=== PATIENT | female | born 1960 | race Caucasian/White ===

== ENCOUNTER → 2019-08-08 08:58 | Outpatient (CLI) | payer MEDICARE, SELFPAY ==
--- NOTE | ~2019-08-08 | XR_ITS ---
EXAMINATION: XR chest 2V DATE: 08/08/2019 09:20 INDICATION: Chest wall pain. TECHNIQUE: Frontal and lateral views of the chest were obtained. COMPARISON: Chest 2 views 04/18/2016, CT abdomen and pelvis 05/16/2016 FINDINGS: The chest demonstrates clear lungs without pneumonia, pleural effusion, or pneumothorax. Th e heart size is normal. There is a prominent left paracardial fat pad. A skin fold overlies right nanda st. IMPRESSION: 1. No acute cardiopulmonary disease. Reviewed, dictated and finalized at location A. 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
== END ==
LOC: EXPCRAD 09:04
PROVIDERS: Visit Provider Physician Assistant
DX: R05 Cough (principal)
CPT/HCPCS: 71046

== ENCOUNTER 2021-02-05 10:26 | Outpatient (CLI) | payer MEDICARE, SELFPAY ==
--- NOTE | ~2021-02-05 | XR_ITS ---
EXAMINATION: XR chest 2V DATE: 02/05/2021 10:40 INDICATION: Chest tightness and shortness of breath TECHNIQUE: PA and lateral views of the chest are obtained. COMPARISON: 08/08/2019 FINDINGS: The lungs are free of acute opacities. There is no pleural effusion or pneumothorax. The he art size is normal. There is a moderate-sized hiatal hernia. There is moderate thoracic spondylosis. IMPRESSION: 1. No acute cardiopulmonary abnormality. Reviewed, dictated and finalized at location B.
== END 2021-02-05 10:27 | disposition home or self-care (01) ==
LOC: ANHIMG 10:29
PROVIDERS: PCP Physician Assistant; Visit Provider Physician Assistant
DX: R07.89 Other chest pain (principal)
CPT/HCPCS: 71046

== ENCOUNTER 2021-08-27 08:04 | Outpatient (CLI) | payer MEDICARE, SELFPAY ==
--- NOTE | ~2021-08-27 | MM_ITS ---
EXAMINATION: MM screening tori BI w silas HISTORY: Screening TECHNIQUE: Craniocaudal and mediolateral oblique 3-D tomosynthesis images were obtained and synthetic 2-D images were generated. CAD analysis was submitted and interpreted. COMPARISON: Comparison to multiple prior studies sequentially, with oldest reviewed study dated 02/2015. BREAST PARENCHYMAL COMPOSITION: There are scattered areas of fibroglandular density. FINDINGS: There is no evidence of suspicious mass, calcification, or architectural distortion to sugg est malignancy in either breast. There has been no suspicious interval change. IMPRESSION: 1. No mammographic evidence of malignancy. 2. Recommend routine screening mammography in one year. BI-RADS Category 1: Negative Reviewed, dictated and finalized at location A. 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
== END 2021-08-27 08:05 | disposition home or self-care (01) ==
LOC: ANHIMG 08:06
PROVIDERS: PCP Physician Assistant; Visit Provider Physician Assistant
DX: Z12.31 Encounter for screening mammogram for malignant neoplasm of breast (principal)
CPT/HCPCS: 77063; 77067

== ENCOUNTER 2021-11-25 19:28 | Inpatient (IN) | payer MEDICARE, SELFPAY ==
--- NOTE | ~2021-11-25 | CT_ITS ---
EXAMINATION: CT abdomen pelvis w con EXAM DATE: 11/25/2021 23:49 INDICATION: LLQ pain . TECHNIQUE: Spiral CT of the abdomen and pelvis was performed following intravenous injection of 100 m L Omnipaque 350. Axial, coronal and sagittal images of the abdomen and pelvis were reviewed. The do se-length product (DLP) for this examination was 1483.54 mGy-cm. The exposure was tailored according to patient size (auto mA exposure control), and iterative reconstruction (ASIR) was used as addition al dose reduction technique. Comparison is made to prior examination from 05/16/2016. FINDINGS: There is mild to moderate sigmoid predominant colonic diverticulosis. There is inflammation along the sigmoid colon with extraluminal pocket of fluid and gas, most likely early peridiverticula r abscess. Region measures about about 1.5 x 3.3 cm (axial image 139). The liver, spleen, adrenal glands and pancreas are unremarkable. Gallbladder is unremarkable. No bi liary obstruction. Portal and splenic veins are patent. Kidneys enhance symmetrically. There is no hydronephrosis. The uterus is not identified and has likely been surgically resected. The bladder is unremarkable. There is no retroperitoneal or pelvic lymphadenopathy. There is mild scattered a rteriosclerotic disease. The appendix is not positively visualized. There is no pericecal inflammatory change to suggest appe ndicitis. The stomach and small bowel are unremarkable. There is expected amount of colonic stool. No free intraperitoneal gas. The heart is normal in size. There are no pericardial or pleural e ffusions. The lung bases are unremarkable. There are no osteoblastic or osteolytic lesions identifi ed. IMPRESSION: Acute sigmoid diverticulitis with small peridiverticular abscess. Reviewed, dictated and finalized at location A.
--- NOTE | ~2021-11-25 | XR_ITS ---
EXAMINATION: XR chest 2V Exam Date/Time: 11/25/2021 20:00 CDT CLINICAL HISTORY: CHEST PAIN, N/V/D, HX CHF, HX HTN Comparison: 02/05/2021. RESULT: Lines, tubes, and devices: None. Lungs and pleura: Clear. Cardiomediastinal silhouette: Stable cardiomediastinal silhouette. Other: No acute osseous or upper abdominal finding. IMPRESSION: No acute cardiopulmonary process Reviewed, dictated and finalized at location K.
--- NOTE | 2021-11-25 19:31 | ECG_ITS ---
Measurements Intervals [place] Rate: 98 P: -18 UT: 148 QRS: -72 QRSD: 97 T: 55 QT: 368 QTc: 471 Interpretive Statements SINUS RHYTHM LEFT ANTERIOR FASCICULAR BLOCK [QRS AXIS <= -45, QR IN I, RS IN II] NONSPECIFIC T-WAVE ABNORMALITY NO PREVIOUS ECG AVAILABLE FOR COMPARISON Electronically Signed On 11-26-2021 11:45:01 CDT by Adi Welsh M.D.
[2021-11-25 19:33] VITALS: BP 141/105; PULSE 108; RESP 20; TEMP 36.9; O2SAT 98
[2021-11-25 22:27] VITALS: BP 155/106; PULSE 98; RESP 23; O2SAT 97
[2021-11-25 22:59] LABS: Basophils Absolute Auto 0.1 K/mm3 (0.0-0.1); Basophils Percent Auto 0.4 % (0.2-1.2); Eosinophils Absolute Auto 0.2 K/mm3 (0-0.3); Eosinophils Percent Auto 1.9 % (0-4.4); Hematocrit 42.5 % (37.0-47.0); Immature Granulocyte Absolute 0.05 K/mm3 (0.00-0.031); Immature Granulocyte Percent A 0.4 % (0-0.5); Lymphocytes Absolute Auto 2.25 K/mm3 (0.9-3.2); Lymphocytes Percent Auto 19.1 % (18.3-44.2); Mean Corpuscular HGB Conc 30.6 g/dl (32-36); Mean Corpuscular Hemoglobin 26.8 pg (26-34); Mean Corpuscular Volume 87.6 fl (80-100); Mean Platelet Volume 9.3 fl (7.4-10.4); Monocytes Absolute Auto 0.8 K/mm3 (0.1-0.6); Monocytes Percent Auto 7.1 % (2.6-8.5); Neutrophils Absolute Auto 8.3 K/mm3 (1.3-6.7); Neutrophils Percent Auto 71.1 % (45.5-73.1); Platelet Count Result 548 k/mm3 (150-375); Red Blood Count 4.85 M/mm3 (4.2-5.4); Red Cell Distribution Width 15.9 % (11.5-14.5); White Blood Count 11.8 K/mm3 (4.5-10.0)
[2021-11-25 23:07] VITALS: PULSE 93
[2021-11-25 23:08] LABS: INR 1.2; Prothrombin Time 14.7 Seconds (11.1-14.7)
[2021-11-25 23:10] LABS: Partial Thromboplastin Time 36.7 SECONDS (22.3-36.8)
[2021-11-25 23:11] LABS: Alanine Aminotransferase 29 U/L (4-35); Albumin Level 4.8 g/dL (3.5-5.1); Alkaline Phosphatase 58 U/L (38-126); Anion Gap 12 mmol/L (8-16); Aspartate Amino Transferase 74 U/L (14-36); Bilirubin,Total 0.7 mg/dL (0.2-1.3); Blood Urea Nitrogen 25 mg/dL (7-17); Calcium 9.3 mg/dL (8.4-10.2); Carbon Dioxide 23 mmol/L (22-30); Chloride 103 mmol/L (98-107); Estimated CRCL calculation 72 ml/min; Estimated Glomerular Filt Rate > 60; Glucose 119 mg/dL (65-110); Lipase 90 U/L (23-300); Potassium 4.6 mmol/L (3.4-5.0); Sodium 138 mmol/L (137-145)
[2021-11-25 23:22] LABS: Troponin I < 0.012 ng/mL (0.000-0.034)
--- NOTE | 2021-11-25 23:32 | ED.GENADULT ---
HPI - General Adult General Chief complaint: Unspecified Stated complaint: CP, back pain Time Seen by Provider: 11/25/21 22:26 Source: patient, family and RN notes reviewed Limitations: no limitations History of Present Illness HPI narrative: 61-year-old female presents to the emergency department department for evaluation of 12 hours of nausea vomiting diarrhea with epigastric and abdominal pain. Patient states her symptoms began at approximately 7:30 in the morning and lasted until just prior to arrival. Patient states that she had a significant improvement of her pain compared to earlier in the day but that she is still having some left lower quadrant pain and tenderness. Patient does have a prior history of cholecystectomy, hysterectomy and prior episodes of diverticulitis. No prior history of PR. Patient is not diabetic. Patient has a BMI of 51.6. does have history of high cholesterol hypertension. Related Data Home Medications Medication Instructions Recorded Confirmed bupropion HCl [Wellbutrin XL] 150 mg PO QAM 11/26/21 11/26/21 buspirone 10 mg PO TID 11/26/21 11/26/21 carvedilol 3.125 mg PO BID 11/26/21 11/26/21 duloxetine 60 mg PO DAILY 11/26/21 11/26/21 fenofibrate micronized 134 mg PO DAILY 11/26/21 11/26/21 furosemide 40 mg PO DAILY 11/26/21 11/26/21 lisinopril 10 mg PO DAILY 11/26/21 11/26/21 modafinil 100 mg PO DAILY 11/26/21 11/26/21 rosuvastatin 10 mg PO DAILY 11/26/21 11/26/21 Allergies Allergy/AdvReac Type Severity Reaction Status Date / Time niacin Allergy Unknown Swelling Verified 11/26/21 01:36 of Lip/Tongue/Throat niacinamide Allergy Unknown Swelling Verified 11/26/21 01:36 of Lip/Tongue/Throat Review of Systems Review of Systems: CONSTITUTIONAL: Denies fever, chills, or sweats. EYES: Denies visual changes, redness, or discharge. ENT: Denies rhinorrhea, congestion, sore throat, or otalgia. CARDIOVASCULAR: Denies chest pain, palpitations, or edema. RESPIRATORY: Denies cough or dyspnea. GASTROINTESTINAL: Abdominal pain with associated nausea vomiting and diarrhea GENITOURINARY: Denies dysuria or hematuria. SKIN: Denies rash or itching. MUSCULOSKELETAL: Denies back pain, joint pain, or myalgia. NEUROLOGIC: Denies headache, numbness, or weakness. [facility] Family History Family History (Updated 04/06/17 @ 16:10 by DOCTOR UNKNOWN) Other Depression Family history of arthritis Family history of lung cancer Family history of thyroid disease Social History Social History Smoking status: Never smoker Alcohol intake: current Substance use: never Spiritual care concerns: No Exam Narrative: APPEARANCE: Well appearing, no pain, no distress, well-nourished. HEAD: normocephalic, atraumatic. EYES: PERRLA/EOMI, conjunctivae clear. NECK: Supple. No adenopathy, no masses. RESPIRATORY: Airway patent, respirations nonlabored. Clear to auscultation bilaterally, no rales, rhonchi, wheezing. CARDIOVASCULAR: Regular rate and rhythm without murmurs rubs or gallops. ABDOMINAL: Left lower quadrant tenderness to palpation MUSCULOSKELETAL: Moves all extremities. Strength/ROM intact, No edema, No calf tenderness. NEURO: Alert. Cranial nerves II through XII intact. Grossly intact SKIN: Warm, dry. Normal Color Course Course Emergency Course: CT abdomen pelvis showed a diverticular abscess 3 x 1.5 cm with a small amount of free air. Case was discussed with Dr. Scruggs and he will see the patient as consult. Patient was started on Zosyn. Blood cultures pending. He recommended the patient be n.p.o. except for ice chips. Vital Signs Vital signs: Vital Signs Temperature 98.5 F 11/25/21 19:33 Pulse Rate 108 H 11/25/21 19:33 Respiratory Rate 20 11/25/21 19:33 Blood Pressure 141/105 H 11/25/21 19:33 Pulse Oximetry 98 11/25/21 19:33 Temperature 98.7 F 11/26/21 05:09 Pulse Rate 98 11/26/21 05:09 Respiratory Rate 16 11/26/21 05:09 Blood Pres
[2021-11-26] VITALS (9 sets, daily range): BP systolic 125–177; BP diastolic 70–106; PULSE 76–98; RESP 16–26; TEMP 36.3–37.1; O2SAT 96–100; BMI 53.0
--- NOTE | 2021-11-26 00:43 | PC.NURSE ---
NAUN received from Dr. Sun that troponin serial tests are not needed.
--- NOTE | 2021-11-26 02:58 | ADMGEN ---
This patient, Krupa Perez, was admitted to [facility] Surg Room 324-01. Patient/family oriented to hospital policies and general routines including ID bracelet, bed and alarms, visiting hours, pain management, procedures, bathroom and other care routines, personal items, smoking policy, room service/diet, and visiting hours. Information on how to activate the Rapid Response Team has been discussed. Patient/Family are encouraged to report perceived risks to care and to ask questions if they do not understand what they are told or what they should do.
[2021-11-26] MEDS: SODIUM CHLORIDE 0.9% IV 1,000 ML 75 ML IV CONT ×2 (03:19→15:08)
[2021-11-26 09:35] LABS: Hematocrit 38.5 % (37.0-47.0); Mean Corpuscular HGB Conc 31.2 g/dl (32-36); Mean Corpuscular Hemoglobin 27.3 pg (26-34); Mean Corpuscular Volume 87.5 fl (80-100); Mean Platelet Volume 9.2 fl (7.4-10.4); Platelet Count Result 486 k/mm3 (150-375); Red Cell Distribution Width 15.6 % (11.5-14.5); White Blood Count 9.8 K/mm3 (4.5-10.0)
[2021-11-26 09:48] LABS: Alanine Aminotransferase 24 U/L (4-35); Albumin Level 3.8 g/dL (3.5-5.1); Alkaline Phosphatase 61 U/L (38-126); Anion Gap 7 mmol/L (8-16); Aspartate Amino Transferase 29 U/L (14-36); Bilirubin,Total 0.4 mg/dL (0.2-1.3); Blood Urea Nitrogen 18 mg/dL (7-17); Calcium 8.6 mg/dL (8.4-10.2); Carbon Dioxide 23 mmol/L (22-30); Chloride 106 mmol/L (98-107); Estimated CRCL calculation 73 ml/min; Estimated Glomerular Filt Rate > 60; Glucose 116 mg/dL (65-110); Magnesium 2.1 mg/dL (1.6-2.3); Potassium 3.8 mmol/L (3.4-5.0); Sodium 136 mmol/L (137-145)
--- NOTE | 2021-11-26 11:45 | PM.CNGS ---
Assessment and Plan Assessment and plan (1) Diverticulitis of intestine with perforation and abscess: Qualifiers: Diverticulitis bleeding: unspecified bleeding status Diverticulitis site: large intestine Qualified Code(s): K57.20 - Diverticulitis of large intestine with perforation and abscess without bleeding Code(s): K57.80 - Diverticulitis of intestine, part unspecified, with perforation and abscess without bleeding Status: Acute Assessment and Plan: CT scan reviewed and discussed in detail. There is evidence of acute sigmoid diverticulitis with a small peridiverticular abscess. Her white blood [place] was [address] and she is afebrile. She is already showing signs of clinical improvement. She has some tenderness on exam primarily in the left lower quadrant, but no peritoneal signs. We would recommend to continue broad-spectrum IV antibiotics, IV fluids, analgesics, and bowel rest for now. We will allow clear liquids later today if her nausea improves. I discussed with the patient that typically this will respond well to antibiotic treatment, but in the case of a larger abscess she could potentially require percutaneous drainage. We will repeat labs tomorrow and continue to monitor with serial abdominal exams. I also discussed with the patient that it would be recommended for her to have a colonoscopy about 4-6 weeks after this acute episode if she is doing well. Thank you for allowing us to see the patient in consultation and we will continue to follow along with you. (2) Hypertension: Code(s): I10 - Essential (primary) hypertension Status: Acute (3) Morbid obesity with BMI of 50.0-59.9, adult: Code(s): E66.01 - Morbid (severe) obesity due to excess calories; Z68.43 - Body mass index [BMI] 50.0-59.9, adult Status: Acute Assessment and Plan: Encouraged diet modification and lifestyle changes to promote weight loss. (4) Candidal dermatitis: Code(s): B37.2 - Candidiasis of skin and nail Status: Acute Assessment and Plan: Superficial maceration noted just below her pannus in the skin fold. The patient was unaware of this and denies any discomfort or itching. Will order antifungal powder and discussed the importance of trying to keep this area clean and dry. Could apply pillow cases to the skin fold to help wick moisture. Additional Plan I have discussed the patient's case and plan of care with Dr. Scruggs. History of Present Illness Consult details Consult date: 11/26/21 Reason for consult: other (Sigmoid diverticulitis with abscess) Requesting physician: Gordo Sun MD Narrative: This is a 61-year-old morbidly obese female with a history of hypertension and hyperlipidemia, who presented to the emergency department with complaints of abdominal pain, vomiting, and diarrhea. She reports waking up feeling in her normal state of health yesterday morning. Just before lunch, she began to notice some mild lower abdominal pain. Shortly after noticing the pain, she developed nausea, vomiting, and diarrhea. Around noon, her abdominal pain began to worsen. She reports the abdominal pain was coming in waves. She attempted to have crackers and tea, but this seemed to worsen her symptoms. She denies fever or chills. Due to the unrelenting pain, she presented to the ER for evaluation. CT scan of the abdomen and pelvis showed acute sigmoid diverticulitis with a small peridiverticular abscess measuring 1.5 x 3.3 cm. Chest x-ray showed no acute cardiopulmonary disease. Labs showed a white blood cell count of 11,800. The patient was admitted to the hospitalist service. Our service was consulted for the sigmoid diverticulitis with abscess. The patient is now seen on the medical floor. She is currently NPO. She reports her abdominal pain has completely resolved. She reports feeling nauseous, but has not vomited since yesterday at home. With further questioning, isaac
[2021-11-26] MEDS: ONDANSETRON INJ 4 MG/2 ML VIAL IV PUSH (11:53)
--- NOTE | 2021-11-26 14:28 | PM.IMHP ---
H&P: HPI History of Present Illness Date/Time: 11/26/21 14:28 ED-HPI narrative: 61-year-old female presents to the emergency department department for evaluation of 12 hours of nausea vomiting diarrhea with epigastric and abdominal pain. Patient states her symptoms began at approximately 7:30 in the morning and lasted until just prior to arrival. Patient states that she had a significant improvement of her pain compared to earlier in the day but that she is still having some left lower quadrant pain and tenderness. Interval Hisotry: 61-year-old female the left lower quadrant pain CT scan abdomen showed acute sigmoid diverticulitis with small peridiverticular abscess. patient started on Zosyn and bowel rest, seen by surgery service recommending conservative management and agree with current plan will continue to monitor if there is any change patient condition and abdominal pain further recommendation to follow. patient is admitted as inpatient will stay in hospital 2 midnights Chief Complaint: abdominal pain Review of Systems Review of Systems: All systems reviewed & are unremarkable except as noted in HPI and below PMFSH Past Medical History Medical History History of diverticulitis of colon History of meningitis Hyperlipidemia Hypertension Morbid obesity with BMI of 50.0-59.9, adult Surgical History Surgical History History of laparoscopic appendectomy History of laparoscopic cholecystectomy History of laparoscopy Reportedly had laparoscopic surgery for an ectopic and 6 months later had an additional surgery for a salpingo-oophorectomy History of total abdominal hysterectomy total abdominal hysterectomy with salpingo-oophorectomy (of the other unilateral side remaining) 25 years ago Family History Family History Other Depression Family history of arthritis Family history of lung cancer Family history of thyroid disease Social History Social History Smoking status: Never smoker Alcohol intake: never Substance use: never Living arrangements: alone Additional occupation/education comments: 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 She states she was put on disability after having meningitis a few years ago. Gender identity (if verbalized by the patient): Female Spiritual care concerns: No Meds Home Medications and Allergies Home Medications Medication Instructions Recorded Confirmed Type bupropion HCl [Wellbutrin XL] 150 mg PO QAM 11/26/21 11/26/21 History buspirone 10 mg PO TID 11/26/21 11/26/21 History carvedilol 3.125 mg PO BID 11/26/21 11/26/21 History duloxetine 60 mg PO DAILY 11/26/21 11/26/21 History fenofibrate micronized 134 mg PO DAILY 11/26/21 11/26/21 History furosemide 40 mg PO DAILY 11/26/21 11/26/21 History lisinopril 10 mg PO DAILY 11/26/21 11/26/21 History modafinil 100 mg PO DAILY 11/26/21 11/26/21 History rosuvastatin 10 mg PO DAILY 11/26/21 11/26/21 History Allergies Allergy/AdvReac Type Severity Reaction Status Date / Time niacin Allergy Unknown Swelling Verified 11/26/21 01:36 of Lip/Tongue/Throat niacinamide Allergy Unknown Swelling Verified 11/26/21 01:36 of Lip/Tongue/Throat Vital Signs Vital Signs - 24 hr 11/25/21 19:33 11/25/21 22:27 11/25/21 23:07 Temperature 98.5 F Pulse Rate 108 H 98 93 Respiratory Rate 20 23 H Blood Pressure 141/105 H 155/106 H Pulse Oximetry 98 97 11/26/21 00:36 11/26/21 01:34 11/26/21 02:20 Temperature Pulse Rate 88 92 95 Respiratory Rate 19 25 H 20 Blood Pressure 141/75 H 177/106 H 136/70 Pulse Oximetry 96 96 96 11/26/21 02:44 11/26/21 02:55 11/26/21 05:09 Temperature 97.7 F 98.7 F Pulse Rate 89 97 98 Respiratory Rate 26 H 20 16 Blood P
[2021-11-26] MEDS: HEPARIN SODIUM 5,000 UNITS/ML VIAL 5000 UNITS SUB-Q ×2 (15:08→20:35)
[2021-11-26] MEDS: busPIRone HCL 10 MG TABLET PO (16:58)
[2021-11-26] MEDS: carvediloL 3.125 MG TABLET PO (20:34)
[2021-11-26] MEDS: TOLNAFTATE 1% POWDER 45 GM BTL 1 APPLIC TOPICAL (20:34)
[2021-11-27 05:46] LABS: Hemoglobin 11.3 g/dL (12.0-15.0); Mean Corpuscular HGB Conc 30.5 g/dl (32-36); Mean Corpuscular Hemoglobin 27.4 pg (26-34); Mean Corpuscular Volume 89.8 fl (80-100); Mean Platelet Volume 9.6 fl (7.4-10.4); Platelet Count Result 502 k/mm3 (150-375); Red Blood Count 4.12 M/mm3 (4.2-5.4); Red Cell Distribution Width 15.9 % (11.5-14.5); White Blood Count 8.8 K/mm3 (4.5-10.0)
[2021-11-27] MEDS: HEPARIN SODIUM 5,000 UNITS/ML VIAL 5000 UNITS SUB-Q ×3 (05:46→22:16)
[2021-11-27 05:47] VITALS: BP 109/66; PULSE 84; RESP 16; TEMP 36.7; O2SAT 95
[2021-11-27 05:58] LABS: Alanine Aminotransferase 21 U/L (4-35); Albumin Level 3.8 g/dL (3.5-5.1); Alkaline Phosphatase 54 U/L (38-126); Anion Gap 9 mmol/L (8-16); Aspartate Amino Transferase 27 U/L (14-36); Bilirubin,Total 0.4 mg/dL (0.2-1.3); Blood Urea Nitrogen 14 mg/dL (7-17); Calcium 8.5 mg/dL (8.4-10.2); Carbon Dioxide 22 mmol/L (22-30); Chloride 108 mmol/L (98-107); Estimated CRCL calculation 73 ml/min; Estimated Glomerular Filt Rate > 60; Glucose 125 mg/dL (65-110); Potassium 3.7 mmol/L (3.4-5.0); Sodium 139 mmol/L (137-145)
[2021-11-27 06:00] LABS: Magnesium 2.1 mg/dL (1.6-2.3)
[2021-11-27] MEDS: SODIUM CHLORIDE 0.9% IV 1,000 ML 75 ML IV CONT (08:05)
[2021-11-27] MEDS: modafiniL (*CRX) 200 MG TABLET 100 MG PO (08:12)
[2021-11-27] MEDS: FENOFIBRATE NANOCRYSTALLIZED 145 MG TABLET PO (08:14)
[2021-11-27] MEDS: FUROSEMIDE 40 MG TABLET PO (08:14)
[2021-11-27] MEDS: lisinopriL 10 MG TABLET PO (08:14)
[2021-11-27] MEDS: ROSUVASTATIN 10 MG TABLET PO (08:14)
[2021-11-27] MEDS: DULoxetine HCL 60 MG CAPSULE.DR PO (08:16)
[2021-11-27] MEDS: busPIRone HCL 10 MG TABLET PO ×3 (08:17→17:05)
[2021-11-27 08:18] VITALS: PULSE 92
[2021-11-27] MEDS: buPROPion HCL XL (24 HR) 150 MG TABCR PO (08:18)
[2021-11-27] MEDS: carvediloL 3.125 MG TABLET PO ×2 (08:18→20:04)
[2021-11-27] MEDS: TOLNAFTATE 1% POWDER 45 GM BTL 1 APPLIC TOPICAL ×2 (08:19→20:04)
[2021-11-27] MEDS: ACETAMINOPHEN 500 MG TABLET 1000 MG PO (08:59)
[2021-11-27 09:05] VITALS: O2SAT 94
[2021-11-27 10:15] LABS: Glucose Point of Care 144 mg/dl (65-105)
--- NOTE | 2021-11-27 12:46 | PM.PNGS ---
Progress Note: A&P Assessment and Plan (1) Diverticulitis of intestine with perforation and abscess: Qualifiers: Diverticulitis bleeding: unspecified bleeding status Diverticulitis site: large intestine Qualified Code(s): K57.20 - Diverticulitis of large intestine with perforation and abscess without bleeding Code(s): K57.80 - Diverticulitis of intestine, part unspecified, with perforation and abscess without bleeding Status: Acute Assessment and Plan: Continues to improve. WBC Normal and she is afebrile. No abdominal pain today and her tenderness has improved. Will advance to full liquids and stop IV fluids if she is tolerating this well. Will also plan to consult a dietitian to educate her on low fiber vs high fiber diet since it has been about 6 years since her last episode of diverticulitis. Continue IV antibiotics. Encouraged increasing activity and walking the halls. Will repeat labs tomorrow morning. (2) Hypertension: Code(s): I10 - Essential (primary) hypertension Status: Acute (3) Morbid obesity with BMI of 50.0-59.9, adult: Code(s): E66.01 - Morbid (severe) obesity due to excess calories; Z68.43 - Body mass index [BMI] 50.0-59.9, adult Status: Acute Assessment and Plan: Encouraged diet modification and lifestyle changes to promote weight loss. (4) Candidal dermatitis: Code(s): B37.2 - Candidiasis of skin and nail Status: Acute Assessment and Plan: Continue antifungal powder and applying pillow cases to the skin fold to help wick moisture. Additional Plan I have discussed the patient's case and plan of care with Dr. Scruggs. To note, her platelets are still 500K this morning. The thrombocytosis could be related to the infection, but need to continue to monitor. Currently on subQ heparin for VTE prophylaxis. Subjective Subjective Date/Time Seen: 11/27/21 12:46 Patient reports: no new complaints, feels better, pain is less, tolerating liquids well and afebrile Interval history: Patient seen and examined. She reports feeling much better today. Denies any abdominal pain, nausea, vomiting or bloating this morning. Reports two liquid BMs this morning and passing gas. Review of Systems Review of Systems: All systems reviewed & are unremarkable except as noted in HPI and below Exam Const: General: comfortable, no acute distress and awake GI: Inspection: non-distended, Pannus present and obesity GI Palp: Yes Soft to palpation, Yes Tenderness to palpation present (GI) (improved tenderness in LLQ), No Guarding due to palpation present (GI) and No Rebound tenderness present Auscultation: normal bowel sounds Skin: Other: area of superficial maceration just below the pannus in the suprapubic fold Neuro: General: moves all extremities and no focal motor deficits Extrem: General: normal to inspection Psych: Insight: Good insight present (Psych) Judgement: Good judgement present (Psych) Objective Data Vital Signs Vital Signs: Vital Signs - 24 hr 11/26/21 14:00 11/26/21 20:34 11/26/21 21:33 Temperature 97.4 F L 97.7 F Pulse Rate 91 76 87 Respiratory Rate 16 20 Blood Pressure 140/74 125/84 Pulse Oximetry 98 97 11/27/21 05:47 11/27/21 08:18 Temperature 98.0 F Pulse Rate 84 92 Respiratory Rate 16 Blood Pressure 109/66 Pulse Oximetry 95 Intake/Output Intake/Output: Intake & Output 11/24/21 11/25/21 11/26/21 11/27/21 23:59 23:59 23:59 23:59 Intake Total 1658 1760 Output Total 100 1650 Balance 1558 110 Meds/Results Medications: Active Medications Generic Name Dose Route Start Last Admin Trade Name Freq PRN Reason Stop Dose Admin Acetaminophen 1,000 mg 11/27/21 08:41 11/27/21 08:59 Acetaminophen 500 Mg Tablet PO 1,000 mg Q6H PRN Administration Mild Pain (1-3) or Fever Bupropion HCl 150 mg 11/27/21 09:00 11/27/21 08:18 Bupropion Hcl Xl (24 Hr) 150 Mg Tabcr PO 150 mg
--- NOTE | 2021-11-27 13:36 | PCDIET ---
Received consult for low fiber diet. See nutrition teaching intervention Thank you for the referral
[2021-11-27 14:00] VITALS: BP 120/75; PULSE 92; RESP 18; TEMP 36.2; O2SAT 97
--- NOTE | 2021-11-27 17:38 | PC.NURSE ---
Patient tolerated full liquid diet accompanied by small bowel movement shortly after. Stool is still loose but more formed than this morning. Discontinued the fluids and saline locked the IV per physician to nurse communication.
--- NOTE | 2021-11-27 17:47 | PM.IMPN ---
Progress Note: A&P Assessment and Plan (1) Diverticulitis of intestine with perforation and abscess: Qualifiers: Diverticulitis bleeding: unspecified bleeding status Diverticulitis site: large intestine Qualified Code(s): K57.20 - Diverticulitis of large intestine with perforation and abscess without bleeding Code(s): K57.80 - Diverticulitis of intestine, part unspecified, with perforation and abscess without bleeding Status: Acute Assessment and Plan: Acute sigmoid diverticulitis with small anisa diverticular abscess On Zosyn and bowel rest improving with conservative management advance diet per General surgery (2) Hypertension: Code(s): I10 - Essential (primary) hypertension Status: Acute Assessment and Plan: Home medication (3) Morbid obesity with BMI of 50.0-59.9, adult: Code(s): E66.01 - Morbid (severe) obesity due to excess calories; Z68.43 - Body mass index [BMI] 50.0-59.9, adult Status: Acute Assessment and Plan: Associate Professor Of Library Science consult Subjective Date/time seen: 11/27/21 17:47 Interval history: HPI: 61-year-old female presents to the emergency department department for evaluation of 12 hours of nausea vomiting diarrhea with epigastric and abdominal pain. Patient states her symptoms began at approximately 7:30 in the morning and lasted until just prior to arrival. Patient states that she had a significant improvement of her pain compared to earlier in the day but that she is still having some left lower quadrant pain and tenderness. Interval Hisotry: 61-year-old female the left lower quadrant pain CT scan abdomen showed acute sigmoid diverticulitis with small peridiverticular abscess. patient started on Zosyn and bowel rest, seen by surgery service recommending conservative management and agree with current plan will continue to monitor if there is any change patient condition and abdominal pain further recommendation to follow. 11/27/2021 abdominal pain is much better. Tolerated her liquid diet earlier today. Abdomen on the left lower quadrant is sore but has improved significantly. Review of Systems Review of Systems: All systems reviewed & are unremarkable except as noted in HPI and below Exam Narrative: morbidly obese Patient is comfortable, NAD HEENT: eyes are clear and none icteric LUNGS: normal respiratory effort clear to auscultation laterally ABD: Soft, distended left lower quadrant tender to touch mild Lower extremities: no edema cyanosis clubbing SKIN: nonjaundiced Neuro: grossly intact. Alert and oriented x3 Objective Data Vital Signs Vital Signs: Vital Signs - 24 hr 11/26/21 20:34 11/26/21 21:33 11/27/21 05:47 Temperature 97.7 F 98.0 F Pulse Rate 76 87 84 Respiratory Rate 20 16 Blood Pressure 125/84 109/66 Pulse Oximetry 97 95 11/27/21 08:18 11/27/21 09:05 11/27/21 14:00 Temperature 97.1 F L Pulse Rate 92 92 Respiratory Rate 18 Blood Pressure 120/75 Pulse Oximetry 94 97 Intake/Output Intake/Output: Intake & Output 11/24/21 11/25/21 11/26/21 11/27/21 23:59 23:59 23:59 23:59 Intake Total 1658 2650 Output Total 100 1650 Balance 1558 1000 Meds/Results Medications: Active Medications Generic Name Dose Route Start Last Admin Trade Name Freq PRN Reason Stop Dose Admin Acetaminophen 1,000 mg 11/27/21 08:41 11/27/21 08:59 Acetaminophen 500 Mg Tablet PO 1,000 mg Q6H PRN Administration Mild Pain (1-3) or Fever Bupropion HCl 150 mg 11/27/21 09:00 11/27/21 08:18 Bupropion Hcl Xl (24 Hr) 150 Mg Tabcr PO 150 mg QAM YANET Administration Buspirone HCl 10 mg 11/26/21 17:00 11/27/21 17:05 Buspirone Hcl 10 Mg Tablet PO 10 mg TID YANET Administration Carvedilol 3.125 mg 11/26/21 21:00 11/27/21 08:18 Carvedilol 3.125 Mg Tablet PO 3.125 mg Q12HR YANET Administration Duloxetine HCl 60 mg 11/27/21 09:00 11/27/21 08:16 Duloxetine Hcl 60 Mg Capsu
[2021-11-27 21:34] VITALS: BP 108/61; PULSE 81; RESP 18; TEMP 36.3; O2SAT 99
[2021-11-28 06:00] VITALS: BP 126/87; PULSE 101; RESP 20; TEMP 36.1; O2SAT 97
[2021-11-28] MEDS: HEPARIN SODIUM 5,000 UNITS/ML VIAL 5000 UNITS SUB-Q ×2 (06:03→13:00)
[2021-11-28 06:54] LABS: Hematocrit 38.8 % (37.0-47.0); Mean Corpuscular HGB Conc 30.9 g/dl (32-36); Mean Corpuscular Hemoglobin 26.8 pg (26-34); Mean Corpuscular Volume 86.6 fl (80-100); Mean Platelet Volume 9.3 fl (7.4-10.4); Platelet Count Result 507 k/mm3 (150-375); Red Blood Count 4.48 M/mm3 (4.2-5.4); Red Cell Distribution Width 15.5 % (11.5-14.5); White Blood Count 9.1 K/mm3 (4.5-10.0)
[2021-11-28 07:14] LABS: Alanine Aminotransferase 20 U/L (4-35); Albumin Level 3.8 g/dL (3.5-5.1); Alkaline Phosphatase 61 U/L (38-126); Anion Gap 9 mmol/L (8-16); Aspartate Amino Transferase 25 U/L (14-36); Bilirubin,Total 0.4 mg/dL (0.2-1.3); Blood Urea Nitrogen 9 mg/dL (7-17); Calcium 8.8 mg/dL (8.4-10.2); Carbon Dioxide 23 mmol/L (22-30); Chloride 108 mmol/L (98-107); Estimated CRCL calculation 82 ml/min; Estimated Glomerular Filt Rate > 60; Glucose 110 mg/dL (65-110); Potassium 3.5 mmol/L (3.4-5.0); Sodium 140 mmol/L (137-145)
[2021-11-28] MEDS: ROSUVASTATIN 10 MG TABLET PO (08:28)
[2021-11-28] MEDS: busPIRone HCL 10 MG TABLET PO ×2 (08:28→12:57)
[2021-11-28] MEDS: modafiniL (*CRX) 200 MG TABLET 100 MG PO (08:28)
[2021-11-28 08:29] VITALS: PULSE 90
[2021-11-28] MEDS: lisinopriL 10 MG TABLET PO (08:29)
[2021-11-28] MEDS: FENOFIBRATE NANOCRYSTALLIZED 145 MG TABLET PO (08:29)
[2021-11-28] MEDS: carvediloL 3.125 MG TABLET PO (08:29)
[2021-11-28] MEDS: DULoxetine HCL 60 MG CAPSULE.DR PO (08:29)
[2021-11-28] MEDS: TOLNAFTATE 1% POWDER 45 GM BTL 1 APPLIC TOPICAL (08:29)
[2021-11-28] MEDS: FUROSEMIDE 40 MG TABLET PO (08:29)
[2021-11-28] MEDS: buPROPion HCL XL (24 HR) 150 MG TABCR PO (08:29)
--- NOTE | 2021-11-28 10:28 | PM.PNGS ---
Progress Note: A&P Assessment and Plan (1) Diverticulitis of intestine with perforation and abscess: Qualifiers: Diverticulitis bleeding: unspecified bleeding status Diverticulitis site: large intestine Qualified Code(s): K57.20 - Diverticulitis of large intestine with perforation and abscess without bleeding Code(s): K57.80 - Diverticulitis of intestine, part unspecified, with perforation and abscess without bleeding Status: Acute Assessment and Plan: Continues to improve. WBC Normal and she is afebrile. No abdominal pain today and her tenderness has abated. Dietitian has educated her on low fiber vs high fiber diet since it has been about 6 years since her last episode of diverticulitis. (To stay on a low-fiber diet while taking antibiotics at home prior to her follow-up visit and follow-up CT scan). Change to oral antibiotics & discharge today. Encouraged increasing activity and walking the halls and increasing exercise and walking at home. Okay from a surgical point of view for discharge today. Plan will be for patient to have a follow-up CT scan in 1 week. This will be to be sure that the small diverticular abscess has resolved rather than large during antibiotic treatment. I will see her in follow-up in the office several days after that is done. She will need to have oral antibiotics for approximately 7 more days to give her a full 10 days of treatment. . (2) Hypertension: Code(s): I10 - Essential (primary) hypertension Status: Acute (3) Morbid obesity with BMI of 50.0-59.9, adult: Code(s): E66.01 - Morbid (severe) obesity due to excess calories; Z68.43 - Body mass index [BMI] 50.0-59.9, adult Status: Acute Assessment and Plan: Encouraged diet modification and lifestyle changes to promote weight loss. patient told me today she is coordinate with her son and they were both on weight watchers. I encouraged this and encouraged her cyst a on the low-fiber diet until she sees me in the office. (4) Candidal dermatitis: Code(s): B37.2 - Candidiasis of skin and nail Status: Acute Assessment and Plan: Continue antifungal powder and applying pillow cases to the skin fold to help wick moisture. Additional Plan Will leave antibiotic choices up to Dr. Bolaños at the since there is a severe warning regarding use of ciprofloxacin in association with Cymbalta. I put in script for the metronidazole for which there was no warning. My preference would be that the patient would have dual antibiotic coverage with metronidazole + 1 of any of the following: Levaquin, ciprofloxacin, or Augmentin. Subjective Subjective Date/Time Seen: 11/28/21 10:28 Patient reports: no new complaints, feels better and bowel movement Interval history: Patient lying in bed & denying abdominal pain or nausea. States she had had 2 liquid stools today already. Review of Systems Review of Systems: All systems reviewed & are unremarkable except as noted in HPI and below Constitutional: Constitutional: Reports as per HPI, Denies chills, Denies fatigue and Denies fever(s) Eyes: Eyes: Reports no additional eye complaints and Denies change in vision ENT: Reports system reviewed and no additional complaints, except as documented Cardiovascular: Cardiovascular: Reports no additional cardiovascular complaints, Denies chest pain, Denies leg edema and Denies dyspnea Respiratory: Respiratory: Reports no additional respiratory complaints, Denies cough and Denies dyspnea Gastrointestinal: Gastrointestinal: Reports as per HPI, Reports no additional gastrointestinal complaints, Reports abdominal pain, Denies melena, Denies bloating, Denies hematochezia, Denies coffee ground emesis, Reports constipation (over past few weeks), Reports diarrhea (yesterday), Reports nausea, Reports vomiting and Denies hematemesis Genitourinary: Genitourinary: Reports no additional female genitourinary complaint
--- NOTE | 2021-11-28 11:46 | PM.DS ---
DS: Admitting Diagnosis Discharge Date 11/28/21 Admitting Diagnosis Abdominal pain DS: Discharge Diagnosis Discharge Diagnosis (1) Diverticulitis of intestine with perforation and abscess: Qualifiers: Diverticulitis bleeding: unspecified bleeding status Diverticulitis site: large intestine Qualified Code(s): K57.20 - Diverticulitis of large intestine with perforation and abscess without bleeding Code(s): K57.80 - Diverticulitis of intestine, part unspecified, with perforation and abscess without bleeding Status: Acute Assessment and Plan: Acute sigmoid diverticulitis with small anisa diverticular abscess On Zosyn and bowel rest improving with conservative management advance diet per General surgery Abdominal pain improved significantly with conservative management. She will follow-up with General surgery as an outpatient basis Will have repeat CT planned per General surgery in a week (2) Hypertension: Code(s): I10 - Essential (primary) hypertension Status: Acute Assessment and Plan: Home medication (3) Morbid obesity with BMI of 50.0-59.9, adult: Code(s): E66.01 - Morbid (severe) obesity due to excess calories; Z68.43 - Body mass index [BMI] 50.0-59.9, adult Status: Acute Assessment and Plan: Fit Model consult for low-fiber diet DS: Summary Hospital Course Hospital Course: See above Time Spent with Patient Time attestation: Total time spent providing and/or coordinating discharge services: 45 minutes Exam Narrative: morbidly obese Patient is comfortable, NAD HEENT: eyes are clear and none icteric LUNGS: normal respiratory effort clear to auscultation laterally ABD: Soft, distended left lower quadrant nontender Lower extremities: no edema cyanosis clubbing SKIN: nonjaundiced Neuro: grossly intact. Alert and oriented x3 DS: Data Data Completed and Pending Labs on day of discharge: Labs from last 24 hours 11/28/21 11/28/21 06:36 06:36 WBC 9.1 RBC 4.48 Hgb 12.0 Hct 38.8 MCV 86.6 MCH 26.8 MCHC 30.9 L RDW 15.5 H Plt Count 507 H MPV 9.3 Sodium 140 Potassium 3.5 Chloride 108 H Carbon Dioxide 23 Anion Gap 9 BUN 9 D Creatinine 0.80 Estim Creat Clear Calc 82 Estimated GFR > 60 Glucose 110 Calcium 8.8 Magnesium 2.0 Total Bilirubin 0.4 AST 25 ALT 20 Alkaline Phosphatase 61 Total Protein 7.0 Albumin 3.8 Preliminary micro results at discharge 11/26/21 01:33 Blood Culture - Preliminary Blood 11/26/21 01:33 Blood Culture - Preliminary Blood Imaging Radiologist's impression: ITS Impressions Chest X-Ray 11/25/21 20:27 IMPRESSION: No acute cardiopulmonary process Abdomen/Pelvis CT 11/26/21 07:05 IMPRESSION: Acute sigmoid diverticulitis with small peridiverticular abscess. Discharge Plan Discharge Attending physician on discharge: Durga Galeana Consulting providers: Laron Scruggs Discharging Clinician: Durga Galeana Anticipated Discharge Date/Time: 11/28/21 11:16 Patient Disposition: Home, Self-Care Activity: as tolerated Diet: low fiber Wound Care Instructions: follow printed instructions Discharge Instructions: DISCHARGE INSTRUCTION SHEET FOR PATIENTS WITH ACUTE DIVERTICULITIS GOING HOME WITHOUT SURGERY DR. SCRUGGS PATIENT TO TAKE HOME 1. support teacher your oral antibiotics and take them as prescribed. 2. Eat a low fiber diet x 2 weeks or until your surgeon tells you to switch to a high fiber diet. 3. Walking is a good exercise for you, but no strenuous exercise until after your follow up visit to the office. 4. Call the office if you begin having increased left lower quadrant abdominal pain, fever consi
== END 2021-11-28 14:41 | disposition home or self-care (01) | DRG 391 ==
LOC: ANHED 11-26 00:46 → ANH3MEDSUR 11-26 02:04
PROVIDERS: Family Medicine; Internal Medicine; Admitting Provider Internal Medicine; Emergency Provider Emergency Medicine; PCP Physician Assistant; Visit Provider Surgery
DX: K57.20 Diverticulitis of large intestine with perforation and abscess without bleeding (principal); K65.1 Peritoneal abscess; Z68.43 Body mass index [BMI] 50.0-59.9, adult; I10 Essential (primary) hypertension; E66.01 Morbid (severe) obesity due to excess calories; B37.2 Candidiasis of skin and nail; E78.5 Hyperlipidemia, unspecified; Z90.710 Acquired absence of both cervix and uterus; Z90.49 Acquired absence of other specified parts of digestive tract; Z90.722 Acquired absence of ovaries, bilateral
CPT/HCPCS: 36415; 71046; 74177; 80053; 82948; 83690; 83735; 84484; 85025; 85027; 85610; 85730; 87040; 87147; 87181; 87186; 93005; 96365; 99285; A9270; J0131; J0360; J1644; J2405; J2543; J7030; Q9967

== ENCOUNTER 2021-12-05 08:19 | Outpatient (CLI) | payer MEDICARE, SELFPAY ==
--- NOTE | ~2021-12-05 | CT_ITS ---
EXAMINATION: CT abdomen pelvis w con INDICATION: Diverticulitis of the intestine TECHNIQUE: Computed tomographic images of the abdomen and pelvis were obtained after the administrati on of 100 cc of Omnipaque 350 intravenous contrast. The dose-length product (DLP) was 1433.69 mGy-cm. Automated exposure control and iterative reconstruction technique were employed. COMPARISON: 11/25/2021 FINDINGS: Minimal dependent atelectasis is present in the lung bases. The heart size is normal. The l iver, spleen, pancreas, and adrenal glands are normal. The gallbladder is surgically absent. The kidn eys are unremarkable. No pathologically enlarged abdominal or pelvic lymph nodes are identified. Ther e are no dilated loops of bowel. There is persistent sigmoid diverticulitis with interval increase in size of the previously described perisigmoid abscess which now measures approximately 3.9 x 3.9 cm. There is mild lumbar spondylosis. IMPRESSION: 1. Perforated sigmoid diverticulitis with interval increase in size of the previously described peris igmoid abscess. Reviewed, dictated and finalized at location B. IMPRESSION: 1. Perforated sigmoid diverticulitis with interval increase in size of the prev iously described perisigmoid abscess.
== END 2021-12-05 08:20 | disposition home or self-care (01) ==
PROVIDERS: PCP Physician Assistant; Visit Provider Surgery
DX: K57.80 Diverticulitis of intestine, part unspecified, with perforation and abscess without bleeding (principal)
CPT/HCPCS: 74177; Q9967

== ENCOUNTER 2023-05-07 14:31 | Emergency (ER) | payer MEDICARE, SELFPAY ==
[2023-05-07] VITALS (37 sets, daily range): BP systolic 114–134; BP diastolic 54–101; PULSE 84–116; RESP 15–29; TEMP 37.4; O2SAT 95–100
--- NOTE | ~2023-05-07 | XR_ITS ---
XR chest 2V 05/07/2023 15:01 Indication: Weakness. Diaphoresis. Procedure: 2 view chest Comparison: Comparison to multiple prior studies sequentially, with oldest reviewed study dated 04/18. Findings: Heart size is normal. No focal air space disease, pulmonary edema, pleural effusion or susp ected pneumothorax. There is a hiatal hernia. No acute osseous abnormality. Impression: 1: No acute cardiopulmonary disease. Reviewed, dictated and finalized at location B. Impression: 1: No acute cardiopulmonary disease.
--- NOTE | 2023-05-07 14:36 | ECG_ITS ---
Measurements Intervals [place] Rate: 91 P: 13 AL: 194 QRS: -41 QRSD: 101 T: 28 QT: 378 QTc: 467 Interpretive Statements SINUS RHYTHM LEFT AXIS DEVIATION LOW QRS VOLTAGE IN PRECORDIAL LEADS INCOMPLETE RIGHT BUNDLE BRANCH BLOCK POOR R WAVE PROGRESSION, ANTERIOR LEADS BORDERLINE T WAVE ABNORMALITY- ANTERIOR LEADS BASELINE ARTIFACT- I, II, III, AVR, AVL, AVF BORDERLINE ECG COMPARED TO ECG 11/25/2021 19:41:10 LEFT-AXIS DEVIATION NOW PRESENT INCOMPLETE RIGHT BUNDLE-BRANCH BLOCK NOW PRESENT Electronically Signed On 05-07-2023 16:11:31 CDT by Jc Villavicencio D.O.
[2023-05-07 15:00] LABS: Basophils Absolute Auto 0.1 K/mm3 (0.0-0.1); Eosinophils Absolute Auto 0.3 K/mm3 (0-0.3); Eosinophils Percent Auto 2.8 % (0-4.4); Hematocrit 44.8 % (37.0-47.0); Hemoglobin 14.2 g/dL (12.0-15.0); Immature Granulocyte Absolute 0.01 K/mm3 (0.00-0.031); Immature Granulocyte Percent A 0.1 % (0-0.5); Lymphocytes Absolute Auto 2.69 K/mm3 (0.9-3.2); Lymphocytes Percent Auto 29.7 % (18.3-44.2); Mean Corpuscular HGB Conc 31.7 g/dl (32-36); Mean Corpuscular Hemoglobin 26.8 pg (26-34); Mean Corpuscular Volume 84.5 fl (80-100); Mean Platelet Volume 10.6 fl (7.4-10.4); Monocytes Absolute Auto 0.7 K/mm3 (0.1-0.6); Monocytes Percent Auto 7.8 % (2.6-8.5); Neutrophils Absolute Auto 5.3 K/mm3 (1.3-6.7); Neutrophils Percent Auto 58.6 % (45.5-73.1); Platelet Count Result 464 k/mm3 (150-375); Red Cell Distribution Width 15.3 % (11.5-14.5); White Blood Count 9.1 K/mm3 (4.5-10.0)
[2023-05-07 15:38] LABS: Influenza A QL RT-PCR Negative (Negative); Influenza B QL RT-PCR Negative (Negative); RSV RNA, RT-PCR Negative (Negative); SARS-CoV-2 RNA PCR Negative (Negative)
[2023-05-07 15:56] LABS: Alanine Aminotransferase 23 U/L (6-35); Albumin Level 4.9 g/dL (3.5-5.1); Alkaline Phosphatase 54 U/L (38-126); Anion Gap 9 mmol/L (8-16); Aspartate Amino Transferase 35 U/L (14-36); Bilirubin,Total 0.7 mg/dL (0.2-1.3); Blood Urea Nitrogen 23 mg/dL (7-17); Calcium 9.8 mg/dL (8.4-10.2); Carbon Dioxide 25 mmol/L (22-30); Chloride 105 mmol/L (98-107); Estimated CRCL calculation 54 ml/min; Estimated Glomerular Filt Rate 50; Glucose 104 mg/dL (65-110); Potassium 4.4 mmol/L (3.4-5.0); Sodium 139 mmol/L (137-145)
--- NOTE | 2023-05-07 16:54 | ED.GENADULT ---
HPI - General Adult General Chief complaint: Unspecified Stated complaint: weakness Time Seen by Provider: 05/07/23 15:56 History of Present Illness HPI narrative: Patient is a 62-year-old female with a history of hypertension, hyperlipidemia, diabetes presenting with lightheadedness. Patient states that for the last several weeks she has been having a lot of GI symptoms with diarrhea and nausea. States that she has had decreased appetite but no vomiting. No cough, nasal congestion, fevers, shortness of breath. States that today she was feeling lightheaded as well as sweaty and nauseated. States that she has a weird sensation in her torso that she is unable to explain. No chest pain or palpitations. No leg swelling. States that she has had some decreased urination but no dysuria or hematuria. Currently, states that she feels fine. Related Data Home Medications Medication Instructions Recorded Confirmed bupropion HCl 150 mg 24 hr tablet, 150 mg PO QAM 11/26/21 12/22/21 extended release (Wellbutrin XL) buspirone 10 mg tablet 10 mg PO TID 11/26/21 12/22/21 carvedilol 3.125 mg tablet 3.125 mg PO BID 11/26/21 12/22/21 duloxetine 60 mg capsule,delayed 60 mg PO DAILY 11/26/21 12/22/21 release fenofibrate micronized 134 mg 134 mg PO DAILY 11/26/21 12/22/21 capsule furosemide 40 mg tablet 40 mg PO DAILY 11/26/21 12/22/21 lisinopril 10 mg tablet 10 mg PO DAILY 11/26/21 12/22/21 modafinil 100 mg tablet 100 mg PO DAILY 11/26/21 12/22/21 rosuvastatin 10 mg tablet 10 mg PO DAILY 11/26/21 12/22/21 potassium chloride 10 mEq 10 meq PO BID 12/08/21 12/22/21 capsule,extended release Allergies Allergy/AdvReac Type Severity Reaction Status Date / Time niacin Allergy Unknown Swelling Verified 05/07/23 14:55 of Lip/Tongue/Throat niacinamide Allergy Unknown Swelling Verified 05/07/23 14:55 of Lip/Tongue/Throat Review of Systems Review of Systems: All systems reviewed & are unremarkable except as noted in HPI and below PMFSH Past Medical History Medical History History of diverticulitis of colon History of meningitis Hyperlipidemia Hypertension Morbid obesity with BMI of 50.0-59.9, adult Surgical History Surgical History History of laparoscopic appendectomy History of laparoscopic cholecystectomy History of laparoscopy Reportedly had laparoscopic surgery for an ectopic and 6 months later had an additional surgery for a salpingo-oophorectomy History of total abdominal hysterectomy total abdominal hysterectomy with salpingo-oophorectomy (of the other unilateral side remaining) 25 years ago Family History Family History Other Depression Family history of arthritis Family history of lung cancer Family history of thyroid disease Social History Social History Smoking status: Former smoker Alcohol intake: never Substance use: never Living arrangements: alone Additional occupation/education comments: 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 She states she was put on disability after having meningitis a few years ago. Gender identity (if verbalized by the patient): Female Spiritual care concerns: No Exam Narrative: GENERAL: Well-appearing and in no acute distress. Very pleasant and cooperative HEAD: Normocephalic, atraumatic. EYES: PERRLA and EOMI. ENT: Mucous membranes moist. NECK: Supple. CHEST: Clear to auscultation. No respiratory distress. HEART: Regular rate and rhythm ABDOMEN: Soft, nontender, nondistended EXTREMITIES: Normal range of motion. No edema. SKIN: Warm, dry, no rash. NEURO: No focal deficits. Alert and oriented x3. PSYCH: Normal mood and affect. Course Vital Signs Vital signs: Vital Signs Te
[2023-05-07] MEDS: SODIUM CHLORIDE 0.9% IV 1,000 ML 999 ML IV CONT ×2 (17:17→20:00)
[2023-05-07] MEDS: ONDANSETRON INJ 4 MG/2 ML VIAL IV PUSH (17:17)
[2023-05-07 18:01] LABS: Creatine Kinase 36 U/L (30-135); Lipase 266 U/L (23-300); Magnesium 2.1 mg/dL (1.6-2.3)
[2023-05-07 18:04] LABS: INR 1.1; Prothrombin Time 14.2 Seconds (11.1-14.7)
[2023-05-07 18:05] LABS: Partial Thromboplastin Time 32.5 SECONDS (22.3-36.8)
[2023-05-07 18:13] LABS: Troponin I < 0.012 ng/mL (0.000-0.034)
--- NOTE | 2023-05-07 19:26 | PC.NURSE ---
Assumed care of pt. Report from Rian Irving. Pt resting quietly per cart. Denies any complaints at this time. Assisted pt up to restroom for urine sample.
[2023-05-07 19:50] LABS: Appearance Urine Clear (Clear); Bacteria Urine None Seen /hpf; Bilirubin Urine 1+ (Negative); Blood Urine Negative (Negative); Color Urine Dark Yellow (Yellow); Glucose Urine UA Negative (Negative); Ketones Urine Negative (Negative); Leukocyte Esterase Ur 2+ LEU/UL (Negative); Nitrate Urine Negative (Negative); Non Pathogenic Casts 0-2; Protein Urine Negative (Negative); RBC Urine 0-2 /hpf (0-2); Specific Grav Ur 1.016 (1.001-1.035); Squamous Epithelial Cell Urine Few /hpf (Few); pH Urine 5.5 (5.0-9.0)
[2023-05-07 19:53] LABS: Add Urine Microscopic? YES
[2023-05-07 20:15] LABS: Troponin I < 0.012 ng/mL (0.000-0.034)
[2023-05-07] MEDS: CEPHALEXIN 500 MG CAPSULE PO (20:29)
== END 2023-05-07 21:16 | disposition home or self-care (01) ==
PROVIDERS: Emergency Medicine; Emergency Provider Emergency Medicine; PCP Physician Assistant
DX: N39.0 Urinary tract infection, site not specified (principal); R42 Dizziness and giddiness; Z20.822 Contact with and (suspected) exposure to COVID-19; I10 Essential (primary) hypertension; E78.5 Hyperlipidemia, unspecified; E11.9 Type 2 diabetes mellitus without complications; E66.01 Morbid (severe) obesity due to excess calories; Z68.43 Body mass index [BMI] 50.0-59.9, adult; Z90.49 Acquired absence of other specified parts of digestive tract; Z90.710 Acquired absence of both cervix and uterus; Z87.891 Personal history of nicotine dependence
CPT/HCPCS: 36415; 71046; 80053; 81001; 82550; 83690; 83735; 84484; 85025; 85610; 85730; 87086; 87088; 87637; 93005; 96361; 96374; 99284; A9270; J2405; J7030

== ENCOUNTER 2023-06-23 16:27 | Emergency (ER) | payer MEDICARE, SELFPAY ==
--- NOTE | ~2023-06-23 | CT_ITS ---
EXAMINATION: CT abdomen pelvis w con DATE: 06/23/2023 18:57 INDICATION: RUQ pain TECHNIQUE: Computed tomography (CT) of the abdomen and pelvis was performed with 100 mL Omnipaque-350 intravenous contrast. Automated exposure control and iterative reconstruction technique were employe d. The dose-length product was 1356.12 mGy-cm. COMPARISON: None. FINDINGS: Lower thorax: Coronary artery and mitral calcification. Bibasilar scar. Liver: Normal. Biliary/Gallbladder: Gallbladder is absent. Mild intra and extrahepatic duct dilation likely secondar y to cholecystectomy. Pancreas: No mass or duct dilation. Spleen: Normal. Adrenals:No mass. Kidneys: No suspicious mass, obstructing stone, or hydronephrosis. GI tract: Moderate hiatal hernia containing predominantly fat. No small or large bowel dilation. Appe ndix surgically absent. Diverticulosis without diverticulitis. Mesentery/Peritoneum: No ascites, mass, or free air. Retroperitoneum: No mass. Atherosclerotic abdominal aortic and/or arterial calcifications. Pelvis: Pelvic organs are within normal limits. Soft Tissues: Soft tissues and body wall unremarkable. Bones: No acute osseous finding. IMPRESSION: No acute abdominopelvic process detected. Reviewed, dictated and finalized at location K. ACE GRINDER
--- NOTE | ~2023-06-23 | XR_ITS ---
EXAMINATION: XR chest 1V portable Exam Date/Time: 06/23/2023 18:40 [employer] HISTORY: RUQ pain Comparison: 05/07/2023. RESULT: Lines, tubes, and devices: None. Lungs and pleura: Clear. Cardiomediastinal silhouette: Stable. Other: No acute osseous or upper abdominal finding. IMPRESSION: No acute cardiopulmonary process. Reviewed, dictated and finalized at location K. [employer]ER
[2023-06-23 16:41] VITALS: BP 147/94; PULSE 108; RESP 18; TEMP 36.3; O2SAT 100
--- NOTE | 2023-06-23 16:45 | ECG_ITS ---
Measurements Intervals [place] Rate: 96 P: 7 [place]: 168 QRS: -48 QRSD: 92 T: 35 QT: 351 QTc: 444 Interpretive Statements SINUS RHYTHM LOW QRS VOLTAGE IN PRECORDIAL LEADS INCOMPLETE RIGHT BUNDLE BRANCH BLOCK LEFT ANTERIOR FASCICULAR BLOCK CONSIDER ANTEROLATERAL INFARCT, AGE INDETERMINATE BASELINE ARTIFACT- II, III, AVL, AVF, V2 ABNORMAL ECG COMPARED TO ECG 05/07/2023 15:53:01 LEFT ANTERIOR FASCICULAR BLOCK NOW PRESENT Electronically Signed On 06-23-2023 18:48:19 AUDIO TAPE LIBRARIAN by Jc Villavicencio D.O.
[2023-06-23 17:33] LABS: Basophils Absolute Auto 0.1 K/mm3 (0.0-0.1); Basophils Percent Auto 0.8 % (0.2-1.2); Eosinophils Absolute Auto 0.3 K/mm3 (0-0.3); Eosinophils Percent Auto 3.7 % (0-4.4); Hematocrit 44.9 % (37.0-47.0); Hemoglobin 13.8 g/dL (12.0-15.0); Immature Granulocyte Absolute 0.03 K/mm3 (0.00-0.031); Immature Granulocyte Percent A 0.3 % (0-0.5); Lymphocytes Absolute Auto 1.37 K/mm3 (0.9-3.2); Lymphocytes Percent Auto 15.8 % (18.3-44.2); Mean Corpuscular HGB Conc 30.7 g/dl (32-36); Mean Corpuscular Volume 87.7 fl (80-100); Mean Platelet Volume 10.7 fl (7.4-10.4); Monocytes Absolute Auto 0.5 K/mm3 (0.1-0.6); Neutrophils Absolute Auto 6.4 K/mm3 (1.3-6.7); Neutrophils Percent Auto 73.4 % (45.5-73.1); Platelet Count Result 409 k/mm3 (150-375); Red Blood Count 5.12 M/mm3 (4.2-5.4); Red Cell Distribution Width 17.8 % (11.5-14.5); White Blood Count 8.7 K/mm3 (4.5-10.0)
[2023-06-23 17:42] LABS: Alanine Aminotransferase 20 U/L (6-35); Albumin Level 4.4 g/dL (3.5-5.1); Alkaline Phosphatase 50 U/L (38-126); Anion Gap 11 mmol/L (8-16); Aspartate Amino Transferase 26 U/L (14-36); Bilirubin,Total 0.7 mg/dL (0.2-1.3); Blood Urea Nitrogen 24 mg/dL (7-17); Calcium 9.7 mg/dL (8.4-10.2); Carbon Dioxide 24 mmol/L (22-30); Chloride 105 mmol/L (98-107); Estimated CRCL calculation 53 ml/min; Estimated Glomerular Filt Rate 50; Glucose 94 mg/dL (65-110); Lipase 286 U/L (23-300); Potassium 4.8 mmol/L (3.4-5.0); Sodium 140 mmol/L (137-145)
[2023-06-23 18:01] LABS: Appearance Urine Cloudy (Clear); Bacteria Urine 2+ /hpf; Bilirubin Urine Negative (Negative); Blood Urine Negative (Negative); Color Urine Yellow (Yellow); Glucose Urine UA Negative (Negative); Ketones Urine Negative (Negative); Leukocyte Esterase Ur 3+ LEU/UL (Negative); Nitrate Urine Negative (Negative); Non Pathogenic Casts 0-2; Protein Urine Negative (Negative); Specific Grav Ur 1.017 (1.001-1.035); Squamous Epithelial Cell Urine Occasional /hpf (Few); WBC Urine >100 /hpf; pH Urine 5.5 (5.0-9.0)
[2023-06-23 18:03] LABS: Add Urine Microscopic? YES
--- NOTE | 2023-06-23 18:41 | ED.ABDPAIN ---
HPI - Abdominal Pain General Chief Complaint: Abdominal Pain Stated Complaint: abd pain Time Seen by Provider: 06/23/23 17:27 History of Present Illness HPI narrative: 63-year-old female with a history of hyperlipidemia, hypertension, CHF, diverticulitis with perforation and abscess reports for evaluation for right upper quadrant abdominal pain that radiates to her back intermittently x2 weeks, more persistent over the past 2 days. States she went to the PCP who advised her to come to the ED given history of diverticulitis with perforation and abscess occurred 1 year ago. The patient states the pain feels like a ?gallbladder attack?, however she had a cholecystectomy approximately 10 years ago. Denies aggravating or alleviating factors. Patient states she felt constipated yesterday and has had a few episodes of watery diarrhea today. She reports associated nausea but no emesis. Denies chest pain, fever, history of kidney stones, dysuria or hematuria, urinary frequency urgency. She reports shortness of breath that is unchanged from her baseline secondary to CHF. Related Data Home Medications Medication Instructions Recorded Confirmed bupropion HCl 150 mg 24 hr tablet, 150 mg PO QAM 11/26/21 12/22/21 extended release (Wellbutrin XL) buspirone 10 mg tablet 10 mg PO TID 11/26/21 12/22/21 carvedilol 3.125 mg tablet 3.125 mg PO BID 11/26/21 12/22/21 duloxetine 60 mg capsule,delayed 60 mg PO DAILY 11/26/21 12/22/21 release fenofibrate micronized 134 mg 134 mg PO DAILY 11/26/21 12/22/21 capsule furosemide 40 mg tablet 40 mg PO DAILY 11/26/21 12/22/21 lisinopril 10 mg tablet 10 mg PO DAILY 11/26/21 12/22/21 modafinil 100 mg tablet 100 mg PO DAILY 11/26/21 12/22/21 rosuvastatin 10 mg tablet 10 mg PO DAILY 11/26/21 12/22/21 potassium chloride 10 mEq 10 meq PO BID 12/08/21 12/22/21 capsule,extended release Allergies Allergy/AdvReac Type Severity Reaction Status Date / Time niacin Allergy Unknown Swelling Verified 06/23/23 17:24 of Lip/Tongue/Throat niacinamide Allergy Unknown Swelling Verified 06/23/23 17:24 of Lip/Tongue/Throat Review of Systems Review of Systems: CONSTITUTIONAL: Denies fever, chills, or sweats. EYES: Denies visual changes, redness, or discharge. ENT: Denies rhinorrhea, congestion, sore throat, or otalgia. CARDIOVASCULAR: Denies chest pain, palpitations RESPIRATORY: Denies cough or dyspnea. GASTROINTESTINAL: See HPI GENITOURINARY: Denies dysuria or hematuria. SKIN: Denies rash or itching. MUSCULOSKELETAL: Denies back pain, joint pain, or myalgia. NEUROLOGIC: Denies headache, numbness, or weakness. PSYCHIATRIC: Denies anxiety or depression. [facility] Past Medical History Medical History History of diverticulitis of colon History of meningitis Hyperlipidemia Hypertension Morbid obesity with BMI of 50.0-59.9, adult Surgical History Surgical History History of laparoscopic appendectomy History of laparoscopic cholecystectomy History of laparoscopy Reportedly had laparoscopic surgery for an ectopic and 6 months later had an additional surgery for a salpingo-oophorectomy History of total abdominal hysterectomy total abdominal hysterectomy with salpingo-oophorectomy (of the other unilateral side remaining) 25 years ago Family History Family History Other Depression Family history of arthritis Family history of lung cancer Family history of thyroid disease Social History Social History Smoking status: Former smoker Alcohol intake: never Substance use: never Living arrangements: alone Additional occupation/education comments: 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 She states she was put on disability after having men
--- NOTE | 2023-06-23 18:46 | PC.NURSE ---
called for lab add-on
[2023-06-23] MEDS: ONDANSETRON INJ 4 MG/2 ML VIAL IV PUSH (18:58)
[2023-06-23] MEDS: MORPHINE SULFATE (*CRX) 4 MG/ML INJ 2 MG IV PUSH (19:00)
[2023-06-23 19:08] LABS: Troponin I < 0.012 ng/mL (0.000-0.034)
[2023-06-23 20:20] VITALS: PULSE 84; RESP 20; O2SAT 97
== END 2023-06-23 20:35 | disposition home or self-care (01) ==
PROVIDERS: Emergency Medicine; Emergency Provider Physician Assistant; PCP Physician Assistant
DX: R10.11 Right upper quadrant pain (principal); R82.998 Other abnormal findings in urine; I10 Essential (primary) hypertension; E78.5 Hyperlipidemia, unspecified
CPT/HCPCS: 36415; 71045; 74177; 80053; 81001; 83690; 84484; 85025; 87086; 87088; 93005; 96365; 96375; 99284; J0696; J2270; J2405; Q9967

== ENCOUNTER 2023-06-24 14:18 | Emergency (ER) | payer MEDICARE, SELFPAY ==
[2023-06-24] VITALS (10 sets, daily range): BP systolic 125–144; BP diastolic 70–99; PULSE 80–97; RESP 17–19; TEMP 36.3; O2SAT 92–100
--- NOTE | ~2023-06-24 | XR_ITS ---
EXAMINATION: XR chest 2V DATE: 06/24/2023 19:44 INDICATION: Right-sided rib pain TECHNIQUE: PA and lateral views of the chest were obtained. COMPARISON: Chest radiograph dated 06/23/2023 FINDINGS: The lungs remain clear with no focal airspace opacities, pulmonary edema, pleural effusion or pneumot horax. Heart size is normal with left paracardial fat pad extending between the apex of the heart and the left costophrenic angle. Moderate-sized hiatal hernia which on earlier CT contains primarily fat . Mild thoracic kyphosis with mild spondylosis. Including needle external to the patient projects acr oss the lower chest on the frontal radiograph which on follow-up is located below the left breast. IMPRESSION: 1. No acute cardiopulmonary disease. Reviewed, dictated and finalized at location A. NTIST PROPAGATOR
[2023-06-24 15:28] LABS: Basophils Absolute Auto 0.1 K/mm3 (0.0-0.1); Basophils Percent Auto 0.7 % (0.2-1.2); Eosinophils Absolute Auto 0.2 K/mm3 (0-0.3); Eosinophils Percent Auto 2.7 % (0-4.4); Hematocrit 43.6 % (37.0-47.0); Hemoglobin 13.3 g/dL (12.0-15.0); Immature Granulocyte Absolute 0.03 K/mm3 (0.00-0.031); Immature Granulocyte Percent A 0.3 % (0-0.5); Lymphocytes Absolute Auto 1.73 K/mm3 (0.9-3.2); Lymphocytes Percent Auto 20.1 % (18.3-44.2); Mean Corpuscular HGB Conc 30.5 g/dl (32-36); Mean Corpuscular Hemoglobin 26.8 pg (26-34); Mean Corpuscular Volume 87.9 fl (80-100); Mean Platelet Volume 10.5 fl (7.4-10.4); Monocytes Absolute Auto 0.7 K/mm3 (0.1-0.6); Monocytes Percent Auto 8.4 % (2.6-8.5); Neutrophils Absolute Auto 5.8 K/mm3 (1.3-6.7); Neutrophils Percent Auto 67.8 % (45.5-73.1); Platelet Count Result 372 k/mm3 (150-375); Red Blood Count 4.96 M/mm3 (4.2-5.4); Red Cell Distribution Width 17.2 % (11.5-14.5); White Blood Count 8.6 K/mm3 (4.5-10.0)
[2023-06-24 15:39] LABS: Alanine Aminotransferase 21 U/L (6-35); Albumin Level 4.4 g/dL (3.5-5.1); Alkaline Phosphatase 57 U/L (38-126); Anion Gap 13 mmol/L (8-16); Aspartate Amino Transferase 28 U/L (14-36); Bilirubin,Total 0.7 mg/dL (0.2-1.3); Blood Urea Nitrogen 23 mg/dL (7-17); Calcium 9.8 mg/dL (8.4-10.2); Carbon Dioxide 22 mmol/L (22-30); Chloride 103 mmol/L (98-107); Estimated CRCL calculation 45 ml/min; Estimated Glomerular Filt Rate 41; Glucose 93 mg/dL (65-110); Lipase 170 U/L (23-300); Potassium 4.9 mmol/L (3.4-5.0); Sodium 138 mmol/L (137-145)
--- NOTE | 2023-06-24 18:02 | ECG_ITS ---
Measurements Intervals [place] Rate: 83 P: 22 WV: 205 QRS: -42 QRSD: 96 T: 35 QT: 368 QTc: 433 Interpretive Statements SINUS RHYTHM LEFT AXIS DEVIATION LOW QRS VOLTAGE IN PRECORDIAL LEADS PATTERN CONSISTENT WITH PULMONARY DISEASE INCOMPLETE RIGHT BUNDLE BRANCH BLOCK BORDERLINE T WAVE ABNORMALITY- ANTERIOR LEADS BASELINE ARTIFACT- I, II, III, AVR, AVL BORDERLINE ECG COMPARED TO ECG 06/23/2023 16:49:26 NO SIGNIFICANT CHANGES Electronically Signed On 06-24-2023 19:01:40 VARNISH MELTER by Jc Villavicencio D.O.
[2023-06-24] MEDS: ONDANSETRON INJ 4 MG/2 ML VIAL IV PUSH (18:23)
[2023-06-24] MEDS: MORPHINE SULFATE (*CRX) 2 MG/ML INJ IV PUSH (18:23)
[2023-06-24 18:52] LABS: Lactic Acid Reflex 0.9 mmol/L (0.7-2.0)
[2023-06-24 19:16] LABS: D Dimer 0.37 ug/mL (<0.48)
[2023-06-24 19:20] LABS: Troponin I < 0.012 ng/mL (0.000-0.034)
[2023-06-24] MEDS: LIDOCAINE 5% PATCH 1 PATCH TRANSDERM (20:00)
--- NOTE | 2023-06-24 20:34 | ED.ABDPAIN ---
HPI - Abdominal Pain General Chief Complaint: Abdominal Pain Stated Complaint: abd and back pain Time Seen by Provider: 06/24/23 17:17 History of Present Illness HPI narrative: 63-year-old female with history of hyperlipidemia, CHF, hypertension, diverticulitis, s/p cholecystectomy 10 years ago reports for evaluation for right upper quadrant abdominal pain and right upper back pain for the past 2 weeks worsening over the past few days. Patient was seen in the ED last night and had a full abdominal pain workup including a negative troponin and EKG, negative chest x-ray, a negative CT scan and lab work. She was found have UTI and was discharged home with Keflex Zofran and encourage) follow-up. Patient states she was up all night last night secondary to the right upper quadrant abdominal pain she called her PCP this morning who advised to come back to the ED. she reports she cannot identify any aggravating or alleviating factors. she denies shortness of breath or cough, chest pain, fever, vomiting, diarrhea, cough or congestion. Her last bowel movement was yesterday and normal. She does report nausea. Related Data Home Medications Medication Instructions Recorded Confirmed bupropion HCl 150 mg 24 hr tablet, 150 mg PO QAM 11/26/21 12/22/21 extended release (Wellbutrin XL) buspirone 10 mg tablet 10 mg PO TID 11/26/21 12/22/21 carvedilol 3.125 mg tablet 3.125 mg PO BID 11/26/21 12/22/21 duloxetine 60 mg capsule,delayed 60 mg PO DAILY 11/26/21 12/22/21 release fenofibrate micronized 134 mg 134 mg PO DAILY 11/26/21 12/22/21 capsule furosemide 40 mg tablet 40 mg PO DAILY 11/26/21 12/22/21 lisinopril 10 mg tablet 10 mg PO DAILY 11/26/21 12/22/21 modafinil 100 mg tablet 100 mg PO DAILY 11/26/21 12/22/21 rosuvastatin 10 mg tablet 10 mg PO DAILY 11/26/21 12/22/21 potassium chloride 10 mEq 10 meq PO BID 12/08/21 12/22/21 capsule,extended release Allergies Allergy/AdvReac Type Severity Reaction Status Date / Time niacin Allergy Unknown Swelling Verified 06/23/23 17:24 of Lip/Tongue/Throat niacinamide Allergy Unknown Swelling Verified 06/23/23 17:24 of Lip/Tongue/Throat Review of Systems Review of Systems: CONSTITUTIONAL: Denies fever, chills, or sweats. EYES: Denies visual changes, redness, or discharge. ENT: Denies rhinorrhea, congestion, sore throat, or otalgia. CARDIOVASCULAR: Denies chest pain, palpitations, or edema. RESPIRATORY: Denies cough or dyspnea. GASTROINTESTINAL: See HPI GENITOURINARY: Denies dysuria or hematuria. SKIN: Denies rash or itching. MUSCULOSKELETAL: See HPI NEUROLOGIC: Denies headache, numbness, or weakness. PSYCHIATRIC: Denies anxiety or depression. [facility] Past Medical History Medical History History of diverticulitis of colon History of meningitis Hyperlipidemia Hypertension Morbid obesity with BMI of 50.0-59.9, adult Surgical History Surgical History History of laparoscopic appendectomy History of laparoscopic cholecystectomy History of laparoscopy Reportedly had laparoscopic surgery for an ectopic and 6 months later had an additional surgery for a salpingo-oophorectomy History of total abdominal hysterectomy total abdominal hysterectomy with salpingo-oophorectomy (of the other unilateral side remaining) 25 years ago Family History Family History Other Depression Family history of arthritis Family history of lung cancer Family history of thyroid disease Social History Social History Smoking status: Former smoker Alcohol intake: never Substance use: never Living arrangements: alone Additional occupation/education comments: 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 She states she was put on disability af
== END 2023-06-24 20:56 | disposition home or self-care (01) ==
PROVIDERS: Student in an Organized Health Care Education/Training Program; Emergency Provider Physician Assistant; PCP Physician Assistant
DX: R10.11 Right upper quadrant pain (principal); R07.89 Other chest pain; I50.9 Heart failure, unspecified; I11.0 Hypertensive heart disease with heart failure; E78.5 Hyperlipidemia, unspecified; Z90.49 Acquired absence of other specified parts of digestive tract; Z90.710 Acquired absence of both cervix and uterus; Z87.891 Personal history of nicotine dependence
CPT/HCPCS: 36415; 71046; 80053; 83605; 83690; 84484; 85025; 85380; 93005; 96374; 96375; 99284; A9270; J2270; J2405

== ENCOUNTER 2024-09-13 09:29 | Emergency (ER) | payer MEDICARE, SELFPAY ==
--- NOTE | 2024-09-13 09:35 | ED_ITS ---
HPI - URI/Sore Throat General Chief Complaint: Upper Respiratory Infection Stated Complaint: Sinus/Left Side Flank Pain Time Seen by Provider: 09/13/24 09:50 Source: patient and RN notes reviewed Mode of arrival: ambulatory Limitations: no limitations History of Present Illness HPI Narrative: 64-year-old female presents with concern for several week history of sinus congestion, drainage, cough. Reports symptoms improved slightly for about 3 days but then returned. She denies shortness of breath. Reports productive cough. She denies fever, body aches, chills, sweats. In a separate complaint she was boarding lower left quadrant discomfort. She reports history of diverticulitis. She denies vomiting, diarrhea. She reports that she has chronic constipation and has taken milk of magnesia and had a bowel movement today. MD elicited complaint: cough and nasal congestion Related Data Home Medications ?Medication ?Instructions ?Recorded ?Confirmed ?Last Taken ?Type bupropion HCl 150 mg 24 hr tablet, 150 mg PO QAM 11/26/21 12/22/21 Unknown History extended release (Wellbutrin XL) buspirone 10 mg tablet 10 mg PO TID 11/26/21 12/22/21 Unknown History carvedilol 3.125 mg tablet 3.125 mg PO BID 11/26/21 12/22/21 Unknown History duloxetine 60 mg capsule,delayed 60 mg PO DAILY 11/26/21 12/22/21 Unknown History release fenofibrate micronized 134 mg 134 mg PO DAILY 11/26/21 12/22/21 Unknown History capsule furosemide 40 mg tablet 40 mg PO DAILY 11/26/21 12/22/21 Unknown History lisinopril 10 mg tablet 10 mg PO DAILY 11/26/21 12/22/21 Unknown History modafinil 100 mg tablet 100 mg PO DAILY 11/26/21 12/22/21 Unknown History rosuvastatin 10 mg tablet 10 mg PO DAILY 11/26/21 12/22/21 Unknown History potassium chloride 10 mEq 10 meq PO BID 12/08/21 12/22/21 Unknown History capsule,extended release Allergies Allergy/AdvReac Type Severity Reaction Status Date / Time niacin Allergy Unknown Swelling Verified 06/23/23 17:24 of Lip/Tongue/Throat niacinamide Allergy Unknown Swelling Verified 06/23/23 17:24 of Lip/Tongue/Throat Review of Systems Review of Systems: CONSTITUTIONAL: Denies malaise, chills, sweats, or fever. EYES: Denies visual changes, redness, or discharge. ENT: Reports rhinorrhea, congestion, sinus pain CARDIOVASCULAR: Denies chest pain, palpitations, or edema. RESPIRATORY: Reports productive cough. Denies dyspnea. GASTROINTESTINAL: Denies nausea, vomiting, diarrhea. Reports left lower quadrant discomfort SKIN: Denies rash or itching. MUSCULOSKELETAL: Denies myalgia. NEUROLOGIC: Denies headache. All systems reviewed & are unremarkable except as noted in HPI and below PMFSH Past Medical History Medical History History of diverticulitis of colon History of meningitis Hyperlipidemia Hypertension Morbid obesity with BMI of 50.0-59.9, adult Surgical History Surgical History History of laparoscopic appendectomy History of laparoscopic cholecystectomy History of laparoscopy Reportedly had laparoscopic surgery for an ectopic and 6 months later had an additional surgery for a salpingo-oophorectomy History of total abdominal hysterectomy total abdominal hysterectomy with salpingo-oophorectomy (of the other unilateral side remaining) 25 years ago Family History Family History Other Depression Family history of arthritis Family history of lung cancer Family history of thyroid disease Social History Social History Smoking status: Former smoker Alcohol intake: never Substance use: never Living arrangements: alone Additional occupation/education comments: 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 She states she was put on disability after having meningitis a few years ago. Gender identity (if verbalized by the patient): Female Spiritual care concerns: No Comments At time of signature, agree with nursing past medical, surgical, social and family history. There is no relevant family history pertinent to the presenting complaint Exam Narrative: GENERAL: Well-appearing, well-nourished, and in no acute distress. HEAD: Normocephalic EYES: PERRLA, conjunctivae clear ENT: Nares clear, turbinates edematous and erythematous, clear discharge. Mucous membranes moist. TM pearly stuart with dull light reflex bilaterally; no tragal tenderness. Oropharynx not erythematous without lesions. Tonsils not enlarged and without exudate, no drooling, no hoarseness, no trismus, uvula midline. NECK: Supple. No lymphadenopathy CHEST: Clear to auscultation, breath sounds equal. No wheezing, rhonchi, rales, or stridor. No respiratory distress, speaks in full sentences. HEART: Regular rate and rhythm. No murmur heard. SKIN: Warm, dry, no rash. NEURO: Alert and oriented x3. PSYCH: Normal mood and affect Course Course Emergency Course: I advised the patient that we cannot thoroughly evaluate her left lower abdominal discomfort and suggested transfer to ER or see her primary care provider. Patient reports she will see her primary care provider and will go to the ER for symptoms worsen or change. Patient is aware of diagnosis, understands and agrees to treatment plan. Anticipatory guidance given. Patient agrees to follow-up as directed and is aware of reasons to seek care at the emergency department. Portions of this record may have been created with voice recognition software Level of Care: Express Care Visit Vital Signs Vital signs: Reviewed. MDM - URI/Sore Throat MDM Narrative Medical decision making narrative: Differential diagnosis considered: Ulrich virus, strep pharyngitis, allergic rhinitis, upper respiratory tract infection, sinusitis, rhinosinusitis, nasopharyngitis. viral pharyngitis, otitis media, otitis externa, pneumonia, bronchitis, viral cough syndrome, viral syndrome, and influenza. Exam findings show no acute concerns or changes; patient is non-toxic appearing and is in no distress. Patient is appropriate for outpatient treatment and follow-up. Lab Data Attestation: I reviewed the patient's lab results. Critical Care Time Critical Care Time Critical Care Time: No Discharge Plan Discharge Clinical Impression: Sinobronchitis Patient Disposition: Home, Self-Care Condition: Stable Instructions: Antibiotic Form, Sinusitis (ED), Acute Bronchitis (ED) Additional Instructions: Take medications as prescribed Recommend antihistamine such as Benadryl at night time and Zyrtec or Heather during the day Also, recommend symptomatic treatment includes: rest, fluids, and increase humidity of the air at home. Recommend Acetaminophen as directed on the bottle to reduce fever, pain, headache. Avoid smoking/second-hand smoke. Please schedule a follow-up visit with your personal physician for further evaluation and treatment within 3-5days. If your symptoms persist, change or worsen significantly before you can contact your personal physician then please, without delay, go to the emergency department for further evaluation. Patient Language: Stateless Prescriptions: New methylprednisolone [Medrol (Yony)] 4 mg tablets,dose pack See Rx Instructions .ROUTE .COMPLEX Qty: 21 0RF Rx Instructions: orally per package directions amoxicillin-pot clavulanate 875-125 mg tablet 1 tablet PO Q12H 10 Days Qty: 20 0RF No Action potassium chloride 10 mEq capsule, extended release 10 meq PO BID furosemide 40 mg tablet 40 mg PO DAILY carvedilol 3.125 mg tablet 3.125 mg PO BID fenofibrate micronized 134 mg capsule 134 mg PO DAILY buspirone 10 mg tablet 10 mg PO TID lisinopril 10 mg tablet 10 mg PO DAILY modafinil 100 mg tablet 100 mg PO DAILY rosuvastatin 10 mg tablet 10 mg PO DAILY bupropion HCl [Wellbutrin XL] 150 mg Tablet Extended Release 24 Hr 150 mg PO QAM duloxetine 60 mg capsule,delayed release(DR/EC) 60 mg PO DAILY lidocaine 5 % adhesive patch,medicated 1 patch topical DAILY Qty: 15 0RF Rx Instructions: leave on most painful area for up to 12 hrs. do not use more than 1 patch in a 24-hour period. Follow-up/Referrals: Cheikh,FORREST Peacock [Primary Care Provider] - Time of Disposition: 09:59
[2024-09-13 09:44] VITALS: BP 112/71; PULSE 85; RESP 16; TEMP 36.7; O2SAT 90
[2024-09-13 10:00] VITALS: PULSE 85; RESP 16; O2SAT 99
== END 2024-09-13 10:15 | disposition home or self-care (01) ==
PROVIDERS: Emergency Provider Nurse Practitioner; PCP Physician Assistant
DX: J32.9 Chronic sinusitis, unspecified (principal); J40 Bronchitis, not specified as acute or chronic; Z87.891 Personal history of nicotine dependence; I10 Essential (primary) hypertension; E78.5 Hyperlipidemia, unspecified; E66.01 Morbid (severe) obesity due to excess calories; Z68.41 Body mass index [BMI] 40.0-44.9, adult; Z86.61 Personal history of infections of the central nervous system
CPT/HCPCS: 99213; G0463

== ENCOUNTER 2024-09-25 11:56 | Outpatient (CLI) | payer MEDICARE, SELFPAY ==
--- NOTE | ~2024-09-25 | CT_ITS ---
EXAMINATION: CT abdomen pelvis w con DATE: 09/25/2024 12:20 INDICATION: Left lower quadrant pain TECHNIQUE: Computed tomography (CT) of the abdomen and pelvis was performed with 100 mL Omnipaque-350 intravenous contrast. Automated exposure control and iterative reconstruction technique were employe d. The dose-length product was 1338.71 mGy-cm. COMPARISON: 06/23/2023 FINDINGS: Lung bases are clear. Heart size is normal. No pericardial or pleural effusion. Small sliding-type hi atal hernia. Mild intra and extra hepatic biliary ductal dilation which is within normal limits post cholecystectomy. Liver, spleen, pancreas and bilateral adrenal glands are normal. Scattered mild nery ical scarring at both kidneys likely sequela prior infection or infarction.. Appendix is not visualiz ed and likely surgically absent with suture line at the tip of the cecum and a few adjacent surgical clips. Moderate diverticulosis along the descending and sigmoid colon with minimal stranding about th e mid sigmoid colon consistent with very mild diverticulitis. No abscess or free intraperineal gas or fluid. Small bowel is unremarkable with no obstruction. The uterus is not identified and has likely been surgically resected. Bladder is normal. No pathologically enlarged abdominal or pelvic lymphaden opathy. Mild grade 1 anterolisthesis at L4-L5 and L5-S1 with associated severe bilateral facet osteoa rthritis. Moderate lower thoracic spondylosis. IMPRESSION: 1. Radiographically uncomplicated sigmoid diverticulitis with minimal inflammatory stranding. 2. Small sliding-type hiatal hernia. Reviewed, dictated and finalized at location A. RMATION SYSTEMS ARCHITECT IMPRESSION: 1. Radiographically uncomplicated sigmoid diverticulitis with minimal inflammat ory stranding. 2. Small sliding-type hiatal hernia.
[2024-09-25 12:15] LABS: Estimated Glomerular Filt Rate 41
--- OUTSIDE RECORDS SUMMARY | 2024-09-25 14:38 | XMS_ITS | Encounter Summary ---
Author Organization [facility] Healthcare Address [address] [place] [address] Care Team Providers Care Distributor Publications Name Role Phone Madonna Salamanca Primary Care Provider [phone]- [phone] Reason for Referral * MRI/CAT/PET Scan (Routine) - Closed Specialty Diagnoses / Procedures Referred By Neel izaguirre Referred To Contact Diagnoses LLQ pain Procedures CT Abdomen Pelvis W Contrast Madonna Salamanca PA [address] [facility] [address] [place] [address] Phone: tel: fax: [address] [address] Phone: tel: fax: Referral ID Status Reason Start Date Expiration Date Visits Re quested Visits Authorized [id number] Closed 09/25/2024 10/25/2025 1 1 AURANT LEAD * Consultation (Routine) - Pending Review Specialty Diagnoses / Procedures Referred By Contangelique t Referred To Contact Sleep Medicine Diagnoses LIMA (obstructive sleep apnea) Madonna Salamanca PA [address] [place] [address] Phone: tel: fax: Sandi Euceda MD [address] [address] Phone: tel: fax: Referral ID Status Reason Start Date Expiration Date Visits Requested Visits Authorized [id number] Pending Review Specialty Services Required 09/25/2024 10/25/2025 1 1 Question Answer Please select the performing region: [facility] [[id number]] Please select the performing department: [facility] [[id number]] To provider: SANDI EUCEDA [[id number]] # of visits: 1 Comments Has dx lima but has lost weight so unsure if needs CPAP. Machine is broken AURANT LEAD Reason for Visit * Reason Comments Medicare Wellness Annual Medicare well ness Cold Symptoms Cough,congestion Encounter Details Date Type Department Care Team (Late st Contact Info) Description 09/25/2024 9:30 AM RESTAURANT LEAD Office Visit [facility] Family Medicine [address] [place] [address] Madonna Salamanca PA [address] [place] [address] Positive depression screening (Primary Dx); LIMA (obstructive sleep apnea); LLQ pain Social History Tobacco Use Types Packs/Day Years Used Date Smoking Tobacco: Former Cigarettes 0.3 5 1 989 - 1994 Smokeless Tobacco: Never Alcohol Use Standard Drinks/Week Comments Yes 0 (1 standard drink = 0.6 oz pur e alcohol) AUDIT-C Answer Date Recorded Q1: How often do you have a drink containing alc ohol? Monthly or less 09/25/2024 Q2: How many drinks containi ng alcohol do you have on a typical day when you are drinking? 1 or 2 09/25/2024 Q3: How often do you have si x or more drinks on one occasion? Never 09/25/2024 PHQ-2 Answer Date Recorded PHQ-2 Total Score 12 09/25/2024 Comments Unknown Sex and Gender Information Value Date Recorded Sex Assigned at Not on file Legal Sex Female 3:10 AM RESTAURANT LEAD Gender Identity Not on file Sexual Orientation Not on file documented as of this encounter Last Filed Vital Signs Vital Sign Reading Time Taken Comments Blood Pressure 132/80 09/25/2024 9:34 AM RESTAURANT LEAD Pulse 82 09/25/2024 9:34 AM RESTAURANT LEAD Temperature 36.6 C (97.9 F) 09/25/2024 9:34 AM RESTAURANT LEAD Respiratory Rate - - Oxygen Saturation 99% 09/25/2024 9:34 AM RESTAURANT LEAD Inhaled Oxygen Concentration - - Weight 104.8 kg (231 lb) 09/25/2024 9:34 AM RESTAURANT LEAD Height 157.5 cm (5' 2 ) 09/25/2024 9:34 AM RESTAURANT LEAD Body Mass Index 42.25 09/25/2024 9:34 AM RESTAURANT LEAD documented in this encounter Functional Status * Audit-C Score Answer Date of Assessment Author 1 09/25/2024 9:35 AM RESTAURANT LEAD Ashley Corbin MA * Question Answer Date of Assessment Author Q1: How often do you have a drink containing alcohol? Monthly or less 09/25/2024 9:35 AM Claudia Joseph MA Q2: How many drinks containing alcohol do you have on a typical day when you are drinking? 1 or 2 09/25/2024 9:35 AM Tarah Joseph M A Q3: How often do you have six or more drinks on one occasion? Never 09/25/2024 9:35 AM Tarah Joseph M A documented as of this encounter Ordered Prescriptions Prescription Sig Dispense Quantity Refills Last Filled Start Date End Date fenofibrate micronized (LOFIBRA) 134 mg capsule Take 1 capsule (134 mg total) by mouth daily before breakfast 90 capsule 2 09/25/2024 gabapentin (NEURONTIN) 300 mg capsule Take 1 capsule (300 mg total) by mouth 2 (two) times a day 180 capsule 1 09/25/2024 tirzepatide (Mounjaro) 15 mg/0.5 mL pen injector injection Inject 0.5 mL (15 mg total) under the skin once a week 09/25/2024 fluticasone propionate (FLONASE) 50 mcg/actuation nasal spray Administer 2 sprays into each nostril daily 3 each 1 09/25/2024 documented in this encounter Plan of Treatment Scheduled Referrals Name Type Priority Associated Diagnoses Order Schedule Ambulatory referral to Sleep Medicine Outpatient Referral Routine LIMA (obstructive sleep apnea) Expected: 10/09/2024 (Approximate), Expires: 09/25/2025 documented as of this encounter Procedures Procedure Name Priority Date/Time Associated Diagnosis Comments CT ABDOMEN PELVIS W CONTRAST Schedule NERY, Read NERY (Appt Today, Awaiting Results) 09/25/2024 2:17 PM RESTAURANT LEAD LLQ pain documented in this encounter Results * CT Abdomen Pelvis W Contrast (09/25/2024 2:17 PM RESTAURANT LEAD) Anatomical Region Laterality Modality Body N/A Computed Tomogra phy Madonna HERNANDEZ CT PROCEDURES Final Re sult documented in this encounter Visit Diagnoses Diagnosis Positive depression screening- Primary LIMA (obstructive sleep apnea) Obstructive sleep apnea (adult) (pediatric) LLQ pain Abdominal pain, left lower quadrant documented in this encounter Discontinued Medications Medication Sig Discontinue Reason Start Date End Da te tirzepatide (MOUNJARO) 12.5 mg/0.5 mL pen injectorIndications:Type 2 diabetes mellitus with hyperlipidemia (HCC) Inject 12.5 mg under the skin every 7 days 04/03/2024 09/25/2024 vilazodone (VIIBRYD) 40 mg tablet Take 1 tablet (40 mg total) by mouth daily 06/29/2023 09/25/2024 modafiniL (PROVIGIL) 100 mg tablet TAKE 1 TABLET BY MOUTH ONCE DAILY IN THE MORNING 01/25/2021 09/25/2024 fenofibrate micronized (LOFIBRA) 134 mg capsule Take 1 capsule (134 mg total) by mouth daily before breakfast Reorder 08/16/2023 09/25/2024 gabapentin (NEURONTIN) 300 mg capsule TAKE 1 CAPSULE BY MOUTH IN THE MORNING AND AT BEDTIME Reorder 09/25/2024 documented as of this encounter Historical Medications * This list may reflect changes made after this encounter. propranoloL (INDERAL) 10 mg tablet Take 1 tablet (10 mg total) by mouth 2 (two) times a day as needed gabapentin (NEURONTIN) 300 mg capsule TAKE 1 CAPSULE BY MOUTH IN THE MORNING AND AT BEDTIME 09/25/2024 added in this encounter Care Teams Distributor Publications Relationship Specialty Start Date End Date Madonna Salamanca PA [address] [facility] [address] [place] [address] PCP - General Internal Medicine 12/23/20 documented as of this encounter
--- OUTSIDE RECORDS SUMMARY | 2024-09-25 14:38 | XMS_ITS | Encounter Summary ---
Author Organization [facility] Healthcare Address [address] [place] [address] Care Team Providers Care Assessment Nurse Practitioner Name Role Phone Madonna Salamanca Primary Care Provider [phone]- [phone] Encounter Details Date Type Department Care Team (Late st Contact Info) Description 09/22/2024 Telephone [facility] Family Medicine [address] [place] [address] Madonna Salamanca PA [address] [place] [address] Social History Tobacco Use Types Packs/Day Years Used Date Smoking Tobacco: Former Cigarettes 0.3 5 1 989 - 1993 Smokeless Tobacco: Never Alcohol Use Standard Drinks/Week [...] on file Legal Sex Female 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 Monthly or less 09/25/2024 9:35 AM HVAC MAINTENANCE TECHNICIAN Claudia Corbin MA Q2: How many drinks containing alcohol do you have on a typical day when you are drinking? 1 or 2 09/25/2024 9:35 AM HVAC MAINTENANCE TECHNICIAN Tarah Corbin M A Q3: How often do you have six or more drinks on one occasion? Never 09/25/2024 9:35 AM Tarah Joseph M A documented as of this encounter Miscellaneous Notes * Telephone Encounter - Abby Barajas LPN - 09/22/2024 8:51 AM HVAC MAINTENANCE TECHNICIAN Called pt to check on her and she stated she is feeling a little better but still not great. Offered appt today but she stated she could not come today. Scheduled pt for Wednesday. MAINTENANCE TECHNICIAN * Telephone Encounter - Christelle Valdez - 09/22/2024 8:06 AM CST Pt was seen at [facility] on 09/13/24 for: Sinus congestion, drainage, cough Pt discharged with orders for Augmentin BID x 10 days and medrol dose pack for tx of sinusitis and bronchitis. See Attached Notes Staff will f/u with pt MAINTENANCE TECHNICIAN documented in this encounter Plan of Treatment Not on file documented as of this encounter Visit Diagnoses Not on filedocumented in this encounter Care Teams Assessment Nurse Practitioner Relationship Specialty Start Date End Date Madonna Salamanca PA [facility] [facility] [address] [place] [address] PCP - General Internal Medicine 12/23/20 documented as of this encounter
--- OUTSIDE RECORDS SUMMARY | 2024-09-25 14:39 | XMS_ITS | Encounter Summary ---
Author Organization [facility] Facility Care Team Providers Care Floorman Name Role Phone Madonna Salamanca Primary Care Provider +1- [phone] Madonna Salamanca Primary Care Provider +1- [phone] Encounter Details Date Type Department Care Team (Latest Contact Info) Description 01/20/2017 Orders Only [facility] CLINCONV ProviderElisa MD [address] [place] [id number] Social History Tobacco Use Types Packs/Day Years Used Date Smoking Tobacco: Never Alcohol Use Standard Drinks/Week Comments Yes 0 (1 standard drink = 0.6 oz pur e alcohol) Comments Unknown Sex and Gender Information Value Date Recorded Sex Assigned at Not on file Legal Sex Female 3:10 AM 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 us Historical Provider Final Res ult documented in this encounter Visit Diagnoses Not on filedocumented in this encounter Additional Health Concerns Infection Onset Date Last Indicated Resolved Time COVID: Suspected 01/29/2021 01/29/2021 01/30/2021 3:33 AM CDT COVID: Suspected 05/01/2022 05/01/2022 05/01/2022 12:26 PM CDT documented as of this encounter Care Teams Floorman Relationship Specialty Start Date End Date Madonna Salamanca PA [address] [place] [address] PCP - General 01/23/19 12/22/20 Madonna Salamanca PA [address] [place] [address] PCP - General Internal Medicine 12/23/20 documented as of this encounter
--- OUTSIDE RECORDS SUMMARY | 2024-09-25 14:39 | XMS_ITS | Encounter Summary ---
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 Name Role Phone Madonna Salamanca Primary Care Provider +1- [phone] Madonna Salamanca Primary Care Provider +1- [phone] Encounter Details Date Type Department Care Team (Latest Contact Info) Description 04/04/2018 Orders Only [facility] CLINCONV ProviderElisa MD [address] [place] [id number] Social History Tobacco Use Types Packs/Day Years Used Date Smoking Tobacco: Never Alcohol Use Standard Drinks/Week Comments Yes 0 (1 standard drink = 0.6 oz pur e alcohol) Comments Unknown Sex and Gender Information Value Date Recorded Sex Assigned at Not on file 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 us Historical Provider Final Res ult documented in this encounter Visit Diagnoses Not on filedocumented in this encounter Additional Health Concerns Infection Onset Date Last Indicated Resolved Time COVID: Suspected 01/29/2021 01/29/2021 01/30/2021 3:33 AM CDT COVID: Suspected 05/01/2022 05/01/2022 05/01/2022 12:26 PM CDT documented as of this encounter Care Teams Spring Fitter Helper Relationship Specialty Start Date End Date Madonna Salamanca PA [address] [place] [address] PCP - General 01/23/19 12/22/20 Madonna Salamanca PA [address] [place] [address] PCP - General Internal Medicine 12/23/20 documented as of this encounter
--- OUTSIDE RECORDS SUMMARY | 2024-09-25 14:39 | XMS_ITS | Referral Summary ---
Author Organization [facility] [place] [facility] [facility] Address [address] [place] [address] Care Team Providers Care Jailer/Training Officer Name Role Phone Madonna Salamanca Primary Care Provider [phone] Encounters Date Type Department Care Team Description 09/25/2024 Results Follow-Up [facility] Medicine [address] [place] [address] [place] [phone] Madonna Salamanca PA 09/25/2024 9:30 AM DRUG ENFORCEMENT ADMINISTRATION AGENT Office Visit [address] [place] [phone] Madonna Salamanca PA Positive depression screening (Primary Dx); LIMA (obstructive sleep apnea); LLQ pain 09/22/[address] [place] [phone] Madonna Salamanca PA from Last 3 Months Allergies Active Allergy Reactions Criticality Noted Date Comments Niacin Hives,Swelling Medium Medications aspirin 81 mg tablet take 1 tablet by oral route every day 0 0 015 Active multivitamin (MULTIPLE VITAMINS) tablet tablet take 1 by Oral route once 0 0 015 Active nitroglycerin (NITROSTAT) 0.[address] 1 tablet (0.4 mg total) under the tongue every 5 (five) minutes as needed for chest pain May repeat dose q 5 min, up to 3 doses total 30 tablet Active Additional Information Patient not taking.Reported on 07/06/2023 Ventolin HFA 90 mcg/actuation inhaler Inhale 2 puffs every 4 (four) hours as needed for wheezing 18 g 1 023 Active famotidine (PEPCID) 20 mg tabletIndications :Gastroesophageal reflux disease, unspecified whether esophagitis present Take 1 tablet (20 mg total) by mouth daily Active ondansetron ODT (ZOFRAN-ODT) 4 mg disintegrating tablet DISSOLVE 1 TABLET IN MOUTH EVERY 8 HOURS Active albuterol HFA (PROVENTIL HFA,VENTOLIN HFA,PROAIR HFA) 90 mcg/actuation inhalerIndication s:SOB (shortness of breath) Inhale 2 puffs every 6 (six) hours as needed for wheezing 3 each 4 Active potassium chloride ER 20 mEq CR tabletIndications :Palpitations TAKE 1 BY MOUTH TWICE DAILY 180 tablet 1 Active lisinopriL (PRINIVIL,ZESTRIL ) 10 mg tablet Take 1 tablet by mouth once daily 90 tablet 1 024 Active rosuvastatin (CRESTOR) 10 mg tablet Take 1 tablet by mouth once daily 90 tablet [address] (CYMBALTA) 30 mg capsuleIndication s:Moderate episode of recurrent major depressive disorder (HCC) Take 1 capsule (30 mg total) by mouth 2 (two) times a day 60 capsule Active Additional Information Patient taking differently:30 mg oral 2 times daily,60mg in the morning 30mg in the evening, Reported on 09/25/2024 furosemide (LASIX) 20 mg tablet Take 1 tablet (20 mg total) by mouth 2 (two) times a day 180 tablet Active carvediloL (COREG) 3.125 mg tabletIndications :Benign hypertension with coincident congestive heart failure (CMS/HCC) ([facility]) Take 1 tablet (3.125 mg total) by mouth 2 (two) times a day 180 tablet 1 Active propranoloL (INDERAL) 10 mg tablet Take 1 tablet (10 mg total) by mouth 2 (two) times a day as needed Active fluticasone propionate (FLONASE) 50 mcg/actuation nasal spray Administer 2 sprays into each nostril daily 3 each 1 Active tirzepatide (Mounjaro) 15 mg/0.5 mL pen injector injection Inject 0.5 mL (15 mg total) under the skin once a week Active gabapentin (NEURONTIN) 300 mg capsule Take 1 capsule (300 mg total) by mouth 2 (two) times a day 180 capsule 1 Active fenofibrate micronized (LOFIBRA) 134 mg capsule Take 1 capsule (134 mg total) by mouth daily before breakfast 90 capsule 2 Active ciprofloxacin (CIPRO) 500 mg tablet Take 1 tablet (500 mg total) by mouth 2 (two) times a day for 7 days 14 tablet 025 2024 Active metroNIDAZOLE (FLAGYL) 500 mg tablet Take 1 tablet (500 mg total) by mouth 3 (three) times a day for 7 days 21 tablet 025 2024 Active modafiniL (PROVIGIL) 100 mg tablet TAKE 1 TABLET BY MOUTH ONCE DAILY IN THE MORNING 021 2024 Discontinued vilazodone (VIIBRYD) 40 mg tablet Take 1 tablet (40 mg total) by mouth daily 023 2024 Discontinued fenofibrate micronized (LOFIBRA) 134 mg capsule Take 1 capsule (134 mg total) by mouth daily before breakfast 90 capsule 2 024 2024 Discontinued(R eorder) tirzepatide (MOUNJARO) 12.5 mg/0.5 mL pen injectorIndicatio ns:Type 2 diabetes mellitus with hyperlipidemia (HCC) Inject 12.5 mg under the skin every 7 days 6 mL 024 2024 Discontinued gabapentin (NEURONTIN) 300 mg capsule TAKE 1 CAPSULE BY MOUTH IN THE MORNING AND AT BEDTIME 2024 Discontinued(R eorder) Active Problems Problem Noted Date Diagnosed Date Benign hypertension with coi ncident congestive heart failure (CMS/HCC) 08/23/2023 Assessment & Plan (08/23/2023 9:15 PM DRUG ENFORCEMENT ADMINISTRATION AGENT): Managed by Dr. Esteban Continue Lasix 20 b.i.d. potassium Coreg 3.125 b.i.d. lisinopril 10 with aspirin BMI 40.0-44.9, adult 08/22/2023 Assessment & Plan (08/23/2023 9:17 PM DRUG ENFORCEMENT ADMINISTRATION AGENT): Discussed the patient's BMI. The BMI is above average. BMI management plan is completed. BMI Follow-up includes: nutrition counseling, exercise counseling and education provided. Positive depression screening 08/22/2023 Assessment & Plan (08/23/2023 9:17 PM DRUG ENFORCEMENT ADMINISTRATION AGENT): Continue per psychiatrist Elevated platelet count 08/22/2023 Assessment & Plan (08/23/2023 9:18 PM DRUG ENFORCEMENT ADMINISTRATION AGENT): Four years ago the level was just above 500. Will recheck again if remains above 500 will need to see Hematology for further evaluation she is already on an aspirin Right upper quadrant abdominal pain 07/17/2023 Assessment & Plan (07/17/2023 10:52 PM DRUG ENFORCEMENT ADMINISTRATION AGENT): Abdominal pain and symptoms have fully resolved. Will continue to monitor Medicare annual wellness visit, subsequent 03/06 Assessment & Plan (03/06/2023 11:36 PM CDT): Encouraged healthy lifestyle, good nutrition and exercise. Encouraged Calcium and Vitamin D and weight bearing exercise for bone health. Reviewed immunizations. Reviewed age appropirate screenings. Medicare Wellness Documentation is completed within the chart Morbid obesity 03/04/2023 Assessment & Plan (08/23/2023 9:17 PM DRUG ENFORCEMENT ADMINISTRATION AGENT): Discussed the patient's BMI. The BMI is above average. BMI management plan is completed. BMI Follow-up includes: nutrition counseling, exercise counseling and education provided. Assessment & Plan (07/06/2023 1:15 PM DRUG ENFORCEMENT ADMINISTRATION AGENT): Discussed the patient's BMI. The BMI is above average. BMI management plan is completed. BMI Follow-up includes: nutrition counseling, exercise counseling and education provided. Assessment & Plan (03/04/2023 8:11 AM CDT): Discussed the patient's BMI. The BMI is above average. BMI management plan is completed. BMI Follow-up includes: nutrition counseling, exercise counseling and education provided. Acute parotitis 01/19/2022 Assessment & Plan (03/08/2022 6:28 PM CDT): Parotitis appears to be resolving. Has final follow-up with ENT. Swelling of right parotid gland 01/06/2022 Assessment & Plan (01/19/2022 1:44 AM CDT): Swelling of the right parotid gland. Area continues to remain very firm and very uncomfortable. My staff called and spoke with Dr. Espino staff to determine if an ultrasound would be helpful for further evaluation verses trying to get the CT stat. They recommended stat CT and then follow-up pending those results. Patient was sent to [facility] and stat results were obtained IMPRESSION: 1. No acute maxillofacial bones fracture. 2. While robust metal streak artifact from combination of dental amalgam and hardware compromises evaluation, there is an approximately 3.5 cm circumscribed indeterminate mass (with attenuation on this nonenhanced study indeterminate for complicated fluid collection versus soft tissue attenuation solid mass) isocentric to the posteroinferior right parotid gland. 3. Mass produces locoregional mass effect in association with posterolateral predominant inflammatory changes with extension, beyond the thickened overlying platysma, into the adjoining subcutaneous tissues of the lower right face/upper neck consistent with a reactive parotitis. 4. Associated right level 1B and 2A cervical lymphadenopathy. 5. Focused sonographic evaluation of the right parotid gland/mass recommended in association with ENT consultation for further evaluation. ENT was office to and follow-up scheduled with Dr. Prado early next week. Patient notified of results. Will start her on levaquin and Flagyl to have more broad coverage while waiting to see ENT. If she has difficulty breathing, increased sxs she is to go to ER> She is in agreement with the plan. Assessment & Plan (01/06/2022 7:43 PM CDT): Advised patient stat ct of face - she declines as she has grandchildren with her this week. Advised eating sour candy Will give norco to take at hs due to pain, advised no driving for 6h after taking it. She will f/u with pcp in next week if not improving, sooner if worsening. Colonic diverticular abscess 12/03/2021 Assessment & Plan (12/03/2021 8:14 PM CDT): Discussed with patient the importance of monitoring very closely and if she has any fever chills sweats increased abdominal pain that does not respond to the Tylenol she is immediately to go to the ER for evaluation. Reviewed with her that if this abscess would progress it could be very concerning and changes could happen quickly. She voices understanding and is able to verbalize the plan. She is to complete her Augmentin and Flagyl as instructed. She has follow-up with Dr. Scruggs next week to for further evaluation and determination of plan. Diverticulitis 12/03/2021 Assessment & Plan (04/06/2022 1:51 PM CDT): Patient is a history of sigmoid diverticulitis with pericolonic abscess in November 2021. She was treated with Augmentin and metronidazole. She did not require any surgical intervention. She is not had any recurrence of the abdominal pain since. She is not had a colonoscopy since then. Last colonoscopy in February of [address] Hall with left-sided diverticulosis. -high-fiber diet -avoid seeds, nuts, and popcorn -plan for colonoscopy as above -advised patient to go to ER for any recurrence of the abdominal pain Assessment & Plan (12/03/2021 8:14 PM CDT): Discussed with patient the importance of monitoring very closely and if she has any fever chills sweats increased abdominal pain that does not respond to the Tylenol she is immediately to go to the ER for evaluation. Reviewed with her that if this abscess would progress it could be very concerning and changes could happen quickly. She voices understanding and is able to verbalize the plan. She is to complete her Augmentin and Flagyl as instructed. She has follow-up with Dr. Scruggs next week to for further evaluation and determination of plan. Sindy sent to pharmacy for her nausea. Palpitations 12/01/2021 Annual physical exam 10/03/2021 Assessment & Plan (08/23/2023 9:16 PM DRUG ENFORCEMENT ADMINISTRATION AGENT): Encouraged healthy lifestyle, good nutrition and exercise. Encouraged Calcium and Vitamin D and weight bearing exercise for bone health. Reviewed immunizations Reviewed age appropirate screenings. Assessment & Plan (10/12/2022 1:48 PM DRUG ENFORCEMENT ADMINISTRATION AGENT): Encouraged healthy lifestyle, good nutrition and exercise. Encouraged Calcium and Vitamin D and weight bearing exercise for bone health. Reviewed immunizations Reviewed age appropirate screenings. Assessment & Plan (10/03/2021 6:19 PM DRUG ENFORCEMENT ADMINISTRATION AGENT): Encouraged healthy lifestyle, good nutrition and exercise. Encouraged Calcium and Vitamin D and weight bearing exercise for bone health. Reviewed immunizations Reviewed age appropirate screenings. Leg cramps 10/03/2021 Assessment & Plan (10/03/2021 6:19 PM DRUG ENFORCEMENT ADMINISTRATION AGENT): This is a significant, separately identifiable problem that was evaluated and managed on the same day as the wellness exam Check labs to rule out electrolyte imbalance. Continue CPAP. Abnormal EKG 10/03/2021 Assessment & Plan (10/03/2021 6:20 PM DRUG ENFORCEMENT ADMINISTRATION AGENT): This is a significant, separately identifiable problem that was evaluated and managed on the same day as the wellness exam Patient is experiencing fatigue and increased shortness of breath with activity. EKG today revealed Left axis deviation RSR' or QR pattern in V1 suggests right ventricular conduction delay Abnormal EKG This is similar to an EKG from 2019 but recommend referral to Cardiology for further evaluation and determine if fatigue is related to underlying cardiology reason. Breast cancer screening by mammogram 02/24/2021 Assessment & Plan (08/23/2023 9:16 PM DRUG ENFORCEMENT ADMINISTRATION AGENT): Mammogram order provided Assessment & Plan (03/06/2023 11:26 PM CDT): Mammogram order provided Assessment & Plan (02/24/2021 9:38 AM CDT): Mammogram order provided Fatigue 02/24/2021 Assessment & Plan (07/17/2023 10:54 PM DRUG ENFORCEMENT ADMINISTRATION AGENT): Probably multifactorial. Check labs and followup to re-evaluate Assessment & Plan (10/12/2022 1:47 PM DRUG ENFORCEMENT ADMINISTRATION AGENT): Probably multifactorial. Check labs and followup to re-evaluate Assessment & Plan (03/08/2022 6:27 PM CDT): Probably multifactorial. Check labs and followup to re-evaluate Assessment & Plan (10/16/2021 2:29 PM DRUG ENFORCEMENT ADMINISTRATION AGENT): Continued fatigue. Awaiting recommendation from Cardiology. Scheduled for November. If she has acute chest pain or acute symptoms she is to immediately go to the ER. She voices understanding and agreement. Assessment & Plan (10/03/2021 6:05 PM DRUG ENFORCEMENT ADMINISTRATION AGENT): Probably multifactorial. Check labs and followup to re-evaluate Assessment & Plan (02/24/2021 9:38 AM CDT): Probably multifactorial. Check labs and followup to re-evaluate Fever 02/02/2021 Assessment & Plan (02/02/2021 10:21 AM CDT): Check COVID and Strep thru [facility] in [place]. Start antihistamine (Claritin OR Zyrtec), Mucinex 12hour and Steroid nasal spray (Flonase). Push fluids. Rest. Supportive care. If sxs worsen or don\'t improve, pt is to followup in the office. Will start antibiotic as fever with chills but advised may be viral and antibiotic won't help. Monitor for dehydration due to vomiting/diarrhea. Moderate episode of recurrent major depressive d isorder 02/21/2020 Assessment & Plan (08/23/2023 9:16 PM DRUG ENFORCEMENT ADMINISTRATION AGENT): Patient follows closely with Dr. Walker her psychiatrist. She is currently on Cymbalta 60 b.i.d. modafinil and Viibryd Assessment & Plan (03/06/2023 11:25 PM CDT): Managed by Dr. Rivera Assessment & Plan (10/12/2022 1:47 PM DRUG ENFORCEMENT ADMINISTRATION AGENT): Continue per Dr. Amato. He is managing her medications which include Cymbalta 60 modafinil and Seroquel Assessment & Plan (07/19/2022 11:47 PM DRUG ENFORCEMENT ADMINISTRATION AGENT): Continue duloxetine 90 mg daily. Doing well with current dose. Currently using Seroquel to sleep. Psychiatry is helping manage. Assessment & Plan (07/05/2022 5:12 PM DRUG ENFORCEMENT ADMINISTRATION AGENT): Continue per Psychiatry. Assessment & Plan (03/08/2022 6:27 PM CDT): Continue with BuSpar and Cymbalta Assessment & Plan (12/03/2021 8:11 PM CDT): Stable with Wellbutrin and Cymbalta Assessment & Plan (10/16/2021 2:29 PM DRUG ENFORCEMENT ADMINISTRATION AGENT): Continue per psychiatrist. She is grieving appropriately and has the support around her that she needs. Assessment & Plan (10/03/2021 6:05 PM DRUG ENFORCEMENT ADMINISTRATION AGENT): Continue per psychiatrist. She is happy with her current regimen Assessment & Plan (02/23/2021 10:20 AM CDT): Continue per psychiatry Assessment & Plan (08/27/2020 8:17 AM DRUG ENFORCEMENT ADMINISTRATION AGENT): Continue cycarialdarline brownepar and abilify. Encouraged f.u with Dr. Rivera. Assessment & Plan (05/25/2020 10:27 AM CDT): This is a significant, separately identifiable problem that was evaluated and managed on the same day as the wellness exam Continue Cymbalta, buspar and stop the Wellbutrin. Stressed importance of established with a psychiatrist to have full evaluation. I a.m. concerned this is bipolar but does not seem to recent be responding to the mood stabilizer. Will have her pull back on the Wellbutrin to decrease the amount of antidepressant on board continue the Abilify BuSpar and Cymbalta. Provided names of psychiatrists in the area. She denies any suicidal or homicidal thoughts. Will follow-up pending this evaluation. Assessment & Plan (04/07/2020 8:08 PM CDT): This is a significant, separately identifiable problem that was evaluated and managed on the same day as the wellness exam Depression has been well controlled---? Sveta bipolar. Start Abilify 10mg. Reviewed risks, benefit, alternatives, side effects and proper use. F.u 4-6 weeks. Assessment & Plan (04/06/2020 1:01 PM CDT): Pt is still manic. Depression controlled. Will increase the Abilfy to 20mg. Monitor closely. If increased sxs she is to call. Offered referral to psychiatrist but she prefers to increase the Abilfy first. Anxiety 02/21/2020 Assessment & Plan (07/17/2023 10:52 PM DRUG ENFORCEMENT ADMINISTRATION AGENT): Continue with psychiatrist Dr. Rivera Assessment & Plan (04/04/2022 6:48 PM CDT): Patient continues to have anxiety and depression symptoms. She still and BuSpar and Cymbalta and Wellbutrin. [place] like she had been doing well until this creeped up this week regarding family moving into the home and taking belongings. Encouraged to monitor blood pressure closely and call with readings. If her symptoms get worse she is to call for further evaluation. Assessment & Plan (12/03/2021 8:11 PM CDT): Stable with Wellbutrin and Cymbalta Assessment & Plan (10/03/2021 6:05 PM DRUG ENFORCEMENT ADMINISTRATION AGENT): Anxiety is stable with her current regimen. Continue per psychiatrist Assessment & Plan (02/23/2021 10:20 AM CDT): Continue per psychiatry Assessment & Plan (08/27/2020 8:17 AM DRUG ENFORCEMENT ADMINISTRATION AGENT): See depression Assessment & Plan (05/25/2020 10:27 AM CDT): See depression Assessment & Plan (04/07/2020 8:09 PM CDT): See depresssion Assessment & Plan (04/06/2020 1:00 PM CDT): See depression Cough 08/08/2019 Assessment & Plan (08/08/2019 12:59 PM DRUG ENFORCEMENT ADMINISTRATION AGENT): Persistent after 10 days of Augmentin. Obtain CXR---It was negative for acute Cardiopulm disease. Start Prednisone 60 mg x 5 days levaquin cheratussin Pt notified of CXR results and plan after results were obtained. Nail abnormality 05/26/2019 Assessment & Plan (05/26/2019 11:08 PM CDT): This is a significant, separately identifiable problem that was evaluated and managed on the same day as the wellness exam Refer to agricultural appraiser to further evaluate this black area. Tremor 02/02/2019 Assessment & Plan (02/05/2019 4:06 PM CDT): Pt is concerned and would like to see a specialist. Will refer to neurologist. CASTANEDA (dyspnea on exertion) 01/28/2019 Assessment & Plan (10/12/2022 1:47 PM DRUG ENFORCEMENT ADMINISTRATION AGENT): Dyspnea on exertion has improved with the weight loss. She is down almost 30 lb and can tell a significant improvement with her breathing ability. Continue with the weight loss effort Assessment & Plan (01/28/2019 5:30 PM CDT): Pt with cough/SOB. Differentials include bronchitis vs pneumonia vs PE/DVT. Pt is acutely SOB and it seems more severe than what her cold sxs are presenting. Needs to rule out PE/DVT and get a CXR. Recommend to ER as pt states she doesn't think she has the energy to go to the lab/imaging etc. She plans to to to [facility]. Her son is here to take her so she doesn't have to drive. Seasonal allergies 03/31/2018 Gastroesophageal reflux disease without esophagi tis 12/24/2016 Assessment & Plan (10/12/2022 1:49 PM DRUG ENFORCEMENT ADMINISTRATION AGENT): Currently stable without medication. Continue with weight loss effort as it will continue to improve her symptoms Cholecystitis 11/14/2014 Overview (11/12/2016): Cholecystitis Hypersomnia 11/14/2014 Overview (11/12/2016): Hypersomnia Assessment & Plan (02/23/2021 10:20 AM CDT): Continue per sleep Edema 11/14/2014 Overview (11/12/2016): Edema Chronic pain syndrome 11/14/2014 Overview (11/12/2016): Chronic pain syndrome Speech disturbance 11/14/2014 Overview (11/12/2016): Disturbance in speech LIMA on CPAP 11/14/2014 Overview (11/12/2016): Sleep apnea Assessment & Plan (08/23/2023 9:16 PM DRUG ENFORCEMENT ADMINISTRATION AGENT): Patient has not been using her CPAP. Reviewed the long-term sequela of untreated or undertreated sleep apnea not limited to dementia heart rhythm issues like AFib pulmonary hypertension etc.. Patient has all the needed supplies and just needs to reset it up in her new location Assessment & Plan (10/12/2022 1:46 PM DRUG ENFORCEMENT ADMINISTRATION AGENT): Has CPAP at home. Continue to use nightly as instructed. Continue to follow with Dr. Euceda Assessment & Plan (10/03/2021 6:04 PM DRUG ENFORCEMENT ADMINISTRATION AGENT): Continue CPAP. Has all needed supplies. Assessment & Plan (08/27/2020 7:43 AM DRUG ENFORCEMENT ADMINISTRATION AGENT): Has needed supplies. Using nightly Assessment & Plan (05/25/2020 10:25 AM CDT): Continue CPAP Assessment & Plan (02/21/2020 11:47 AM CDT): Using CPAP Dysthymia 11/14/2014 Overview (11/12/2016): Dysthymia Type 2 diabetes mellitus with hyperlipidemia 03/2015 Overview (11/12/2016): HLD - Hyperlipidaemia Assessment & Plan (08/23/2023 9:15 PM DRUG ENFORCEMENT ADMINISTRATION AGENT): Stressed importance of continued A1c control to minimize the intermediate manager effects of diabetes. Bring accuchecks to office when instructed to do so. Check A1c about every 3-6 months. Take medication as prescribed. Get annual eye exam. Encouraged RYDER/Statin if able to tolerate. Encouraged weight control and encouraged diabetic diet and exercise. Encouraged patient to follow low fat/low chol diet like the Mediterranean diet. Increase good fats in the diet. Increase exercise. Monitor labs as needed. Continue fenofibrate and Crestor. Continue majora. A1c at 5.4 which is great control Assessment & Plan (07/17/2023 10:57 PM DRUG ENFORCEMENT ADMINISTRATION AGENT): Stressed importance of continued A1c control to minimize the intermediate manager effects of diabetes. Bring accuchecks to office when instructed to do so. Check A1c about every 3-6 months. Take medication as prescribed. Get annual eye exam. Encouraged RYDER/Statin if able to tolerate. Encouraged weight control and encouraged diabetic diet and exercise. Encouraged patient to follow low fat/low chol diet like the Mediterranean diet. Increase good fats in the diet. Increase exercise. Monitor labs as needed. Patient had nice weight loss with the mounjaro She is discontinued it as A1c but would like to restart at the 2.5. Refills sent to pharmacy. Assessment & Plan (03/06/2023 11:20 PM CDT): Encouraged patient to follow low fat/low chol diet like the Mediterranean diet. Increase good fats in the diet. Increase exercise. Monitor labs as needed. Continue crestor and fenofibrate Assessment & Plan (10/12/2022 1:46 PM DRUG ENFORCEMENT ADMINISTRATION AGENT): Encouraged patient to follow low fat/low chol diet like the Mediterranean diet. Increase good fats in the diet. Increase exercise. Monitor labs as needed. Continue fenofibrate and Crestor Assessment & Plan (07/19/2022 11:48 PM DRUG ENFORCEMENT ADMINISTRATION AGENT): Encouraged patient to follow low fat/low chol diet like the Mediterranean diet. Increase good fats in the diet. Increase exercise. Monitor labs as needed. Continue statin Stressed importance of continued A1c control to minimize the jail effects of diabetes. Bring accuchecks to office when instructed to do so. Check A1c about every 3-6 months. Take medication as prescribed. Get annual eye exam. Encouraged RYDER/Statin if able to tolerate. Encouraged weight control and encouraged diabetic diet and exercise. Tolerating mounjaro. Continue to titrate up for continue diabetes control and weight loss. Assessment & Plan (07/05/2022 5:11 PM DRUG ENFORCEMENT ADMINISTRATION AGENT): New Diagnosis Diabetes. Discussed with patient at length diabetes, pathogenesis, jail sequela, end organ damage, diet/exercise/weight loss, and medication options for treatment. Reviewed A1c, normal values, goals of treatment and need to monitor about every 90 days until well regulated. Discussed importance of annual DM eye exams. Reviewed benefits of RYDER and Statin as a diabetic. Discussed how DM affects the kidney's and ways to monitor. Reviewed increased CV risk and importance of tight control. Reviewed foot care and need to wear shoes to check feet on a regular basis to avoid jail problems. Offered referral to wireless manager. Discussed treatment options including metformin versus G LP verses and G LP/ GI P verses SG LT. Reviewed risks benefits alternatives side effects and proper use. No history of pancreatitis. She would definitely benefit from assistance with weight loss. Will start much RO. Start with 2.5 mg weekly subcu injection x4 weeks and then increase in 2.5 increments each month until either at goal of 15 or unable to tolerate. Will check kidney and liver function in about a month or so follow-up in 6 weeks to reassess she is doing Continue statin Assessment & Plan (04/04/2022 6:43 PM CDT): New Diagnosis Diabetes. Discussed with patient at length diabetes, pathogenesis, intermediate manager sequela, end organ damage, diet/exercise/weight loss, and medication options for treatment. Reviewed A1c, normal values, goals of treatment and need to monitor about every 90 days until well regulated. Discussed importance of annual DM eye exams. Reviewed benefits of RYDER and Statin as a diabetic. Discussed how DM affects the kidney's and ways to monitor. Reviewed increased CV risk and importance of tight control. Reviewed foot care and need to wear shoes to check feet on a regular basis to avoid jail problems. Offered referral to wireless manager. Discussed treatment options She is very interested in a G LP or G LP GI P for the weight loss. Discussed risks benefits alternatives side effects and proper use. No history of pancreatitis. She would definitely benefit from cardiovascular protection in addition. Provided names of G LP is and Fabi to see which 1 her insurance covers. Later in the day she called back stating Mounjaro is covered. She will start 2.5 mg per week injections x4 weeks then increase to 5. Will continue to monitor as we progress. Will monitor labs as we titrate up. Assessment & Plan (03/08/2022 6:26 PM CDT): Encouraged patient to follow low fat/low chol diet like the Mediterranean diet. Increase good fats in the diet. Increase exercise. Monitor labs as needed. Continue statin Assessment & Plan (10/03/2021 6:04 PM DRUG ENFORCEMENT ADMINISTRATION AGENT): Encouraged patient to follow fat/low chol diet like the Mediterranean diet. Increase good fats in the diet. Increase exercise. Monitor labs as needed. Continue Crestor and fenofibrate Assessment & Plan (02/23/2021 10:19 AM CDT): Encouraged patient to follow fat/low chol diet like the Mediterranean diet. Increase good fats in the diet. Increase exercise. Monitor labs as needed. Continue crestor and fenofibrate Assessment & Plan (08/27/2020 8:15 AM DRUG ENFORCEMENT ADMINISTRATION AGENT): Encouraged patient to follow fat/low chol diet like the Mediterranean diet. Increase good fats in the diet. Increase exercise. Monitor labs as needed. Continue fenofibrate and crestor Assessment & Plan (05/25/2020 10:26 AM CDT): Encouraged patient to follow fat/low chol diet like the Mediterranean diet. Increase good fats in the diet. Increase exercise. Monitor labs as needed. Continue fenofibrate and crestor Assessment & Plan (04/07/2020 8:07 PM CDT): Encouraged patient to continue low fat/low chol diet. Continue exercise. Increase good fats in the diet. Monitor labs as needed. Continue statin and fenofibrate Assessment & Plan (05/26/2019 11:04 PM CDT): Encouraged patient to continue low fat/low chol diet. Continue exercise. Increase good fats in the diet. Monitor labs as needed. Meningitis 11/14/2014 Overview (11/12/2016): Meningitis Hypertension associated with diabetes 11/14/2014 Overview (11/12/2016): HBP Assessment & Plan (08/23/2023 9:15 PM DRUG ENFORCEMENT ADMINISTRATION AGENT): Bp is stable/in acceptable range for any co-morbidities. Encouraged to limit sodium intake and exercise for weight control. Continue Lasix lisinopril and Coreg Assessment & Plan (10/12/2022 1:58 PM DRUG ENFORCEMENT ADMINISTRATION AGENT): This is a significant, separately identifiable problem that was evaluated and managed on the same day as the wellness exam Bp is stable/in acceptable range for any co-morbidities. Encouraged to limit sodium intake and exercise for weight control. Continue per Dr. Esteban. Currently on Imdur aspirin Lasix 40 in the morning 20 at night and potassium with Coreg 3.125 b.i.d. and lisinopril 10. Has mild increased swelling in the feet. Will have her increased lasix to 40mg bid x 1 week, then return to 40/20. Pt in agreement. Assessment & Plan (07/05/2022 5:11 PM DRUG ENFORCEMENT ADMINISTRATION AGENT): Bp is stable/in acceptable range for any co-morbidities. Encouraged to limit sodium intake and exercise for weight control. Continue Coreg and lisinopril Assessment & Plan (04/04/2022 6:47 PM CDT): Encouraged to limit sodium intake and exercise for weight control. BP is not well controlled today. She states she is stressed with family issues at home right before she came. Encouraged her to monitor her readings and give us a call in a week with those readings to make sure that they have come down. She continues to follow with Dr. Esteban Cardiology. If she would have increased chest pain shortness of breath visual changes difficulty finding her words weakness on 1 side she is to immediately go to the ER as these could be stroke or heart attack symptoms. Patient verbalizes understanding Assessment & Plan (03/08/2022 6:26 PM CDT): Bp is stable/in acceptable range for any co-morbidities. Encouraged to limit sodium intake and exercise for weight control. Continue per current regimen. Awaiting recommendations from Cardiology workup Assessment & Plan (10/03/2021 6:05 PM DRUG ENFORCEMENT ADMINISTRATION AGENT): Bp is stable/in acceptable range for any co-morbidities. Encouraged to limit sodium intake and exercise for weight control. Continue Coreg lisinopril and Lasix Assessment & Plan (02/23/2021 10:19 AM CDT): Bp is stable/in acceptable range for any co-morbidities. Encouraged to limit sodium intake and exercise for weight control. Continue lasix and lisinopril Assessment & Plan (08/27/2020 8:15 AM DRUG ENFORCEMENT ADMINISTRATION AGENT): Bp is stable/in acceptable range for any co-morbidities. Encouraged to limit sodium intake and exercise for weight control. Continue coreg, lasix and lisinopril Assessment & Plan (05/25/2020 10:25 AM CDT): Bp is stable/in acceptable range for any co-morbidities. Encouraged to limit sodium intake and exercise for weight control. Continue Coreg, lasix and lisinopril Assessment & Plan (05/26/2019 11:01 PM CDT): Bp is stable/in acceptable range for any co-morbidities. Encouraged to limit sodium intake and exercise for weight control. Atopic rhinitis 11/14/2014 Overview (11/12/2016): Allergic rhinitis Assessment & Plan (02/23/2021 10:19 AM CDT): Continue current regimen/albuterol prn Chronic diastolic congestive heart failure (CMS/ HCC) 08/19/2012 Assessment & Plan (08/23/2023 9:15 PM DRUG ENFORCEMENT ADMINISTRATION AGENT): Managed by Dr. Esteban Continue Lasix 20 b.i.d. potassium Coreg 3.125 b.i.d. lisinopril 10 with aspirin Appears compensated today Assessment & Plan (03/06/2023 11:25 PM CDT): Continue per Dr. Esteban Appears compensated today Dizziness 08/19/2012 Malignant neoplasm of cervix (CMS/HCC) 3 Resolved Problems Problem Noted Date Diagnosed Date Resolved Date Colon cancer screening 03/06/202308/23 Benign hypertensive heart an d kidney disease with congestive heart failure and stage 3 chronic kidney disease 03/06/2023 08/23/2023 Assessment & Plan (03/06/2023 11:15 PM CDT): Continue per Dr. Esteban Bp is stable/in acceptable range for any co-morbidities. Encouraged to limit sodium intake and exercise for weight control. Avoid nephrotoxic drugs including NSAIDs. Monitor labs. Continue medication regimen managed by Dr. Esteban BMI 45.0-49.9, adult 03/04/2023 024 Assessment & Plan (07/06/2023 1:15 PM DRUG ENFORCEMENT ADMINISTRATION AGENT): Discussed the patient's BMI. The BMI is above average. BMI management plan is completed. BMI Follow-up includes: nutrition counseling, exercise counseling and education provided. Assessment & Plan (03/06/2023 11:28 PM CDT): Discussed the patient's BMI. The BMI is above average. BMI management plan is completed. BMI Follow-up includes: nutrition counseling, exercise counseling and education provided. Continue Mounjaro. Had built up to 15 but supply is an issue so down at 12.5 and still having good results Morbid obesity 10/12/2022 03/04/2023 Assessment & Plan (10/12/2022 1:09 PM DRUG ENFORCEMENT ADMINISTRATION AGENT): Discussed the patient's BMI. The BMI is above average. BMI management plan is completed. BMI Follow-up includes: nutrition counseling, exercise counseling and education provided. BMI 50.0-59.9, adult 10/12/2022 023 Assessment & Plan (10/12/2022 1:10 PM DRUG ENFORCEMENT ADMINISTRATION AGENT): Discussed the patient's BMI. The BMI is above average. BMI management plan is completed. BMI Follow-up includes: nutrition counseling, exercise counseling and education provided. Stage 3a chronic kidney disease (CKD) 07/05/2022 08/23/2023 Assessment & Plan (03/06/2023 11:25 PM CDT): Avoid nephrotoxic drugs including NSAIDs. Monitor labs. Assessment & Plan (10/12/2022 1:51 PM DRUG ENFORCEMENT ADMINISTRATION AGENT): Avoid nephrotoxic drugs including NSAIDs. Monitor labs. Assessment & Plan (07/05/2022 5:13 PM DRUG ENFORCEMENT ADMINISTRATION AGENT): Avoid nephrotoxic drugs including NSAIDs. Monitor labs. Flu vaccine need 07/05/2022 07/19/2022 Adult BMI 50.0-59.9 kg/sq m 03/23/2022 07/05/2022 Assessment & Plan (03/23/2022 10:08 AM CDT): Obesity is unchanged. Discussed the patient's BMI. The BMI is above average. BMI management plan is completed. BMI Follow-up includes: nutrition counseling, exercise counseling and education provided. Morbid obesity with BMI of 50.0-59.9, adult 03/23/2022 10/12/2022 Assessment & Plan (07/19/2022 11:47 PM DRUG ENFORCEMENT ADMINISTRATION AGENT): Discussed the patient's BMI. The BMI is above average. BMI management plan is completed. BMI Follow-up includes: nutrition counseling, exercise counseling and education provided. Majoramadou is helping with weight loss. Will continue to titrate dose as tolerated. Is also helping with diabetes management. Assessment & Plan (07/05/2022 5:13 PM DRUG ENFORCEMENT ADMINISTRATION AGENT): Discussed the patient's BMI. The BMI is above average. BMI management plan is completed. BMI Follow-up includes: nutrition counseling, exercise counseling and education provided. Assessment & Plan (03/23/2022 10:08 AM CDT): Obesity is unchanged. Discussed the patient's BMI. The BMI is above average. BMI management plan is completed. BMI Follow-up includes: nutrition counseling, exercise counseling and education provided. Controlled type 2 diabetes m ellitus with circulatory disorder, without long-term current use of insulin 03/22/2022 03/22/2022 Type 2 diabetes mellitus wit h stage 3a chronic kidney disease, without long-term current use of insulin 03/22/2022 08/23/2023 Assessment & Plan (03/06/2023 11:20 PM CDT): Stressed importance of continued A1c control to minimize the jail effects of diabetes. Bring accuchecks to office when instructed to do so. Check A1c about every 3-6 months. Take medication as prescribed. Get annual eye exam. Encouraged RYDER/Statin if able to tolerate. Encouraged weight control and encouraged diabetic diet and exercise. Continue Mounjaro as A1c is tightly controlled. Assessment & Plan (10/12/2022 1:51 PM DRUG ENFORCEMENT ADMINISTRATION AGENT): Stressed importance of continued A1c control to minimize the intermediate manager effects of diabetes. Bring accuchecks to office when instructed to do so. Check A1c about every 3-6 months. Take medication as prescribed. Get annual eye exam. Encouraged RYDER/Statin if able to tolerate. Encouraged weight control and encouraged diabetic diet and exercise. Avoid nephrotoxic drugs including NSAIDs. Monitor labs. Patient had been using anti-inflammatory so encouraged her to completely stop that. Will continue to monitor closely. Due to recheck labs to determine A1c control. Continue Faib Assessment & Plan (07/05/2022 5:12 PM DRUG ENFORCEMENT ADMINISTRATION AGENT): New diagnosis diabetes. Avoid nephrotoxic drugs including NSAIDs. Monitor labs. Assessment & Plan (04/04/2022 6:48 PM CDT): See diabetes hyperlipidemia as new diagnosis. Avoid nephrotoxic drugs including NSAIDs. Monitor labs. Controlled type 2 diabetes m ellitus with circulatory disorder, without long-term current use of insulin 03/22/2022 03/22/2022 BMI 50.0-59.9, adult 03/08/2022 022 Assessment & Plan (03/08/2022 6:28 PM CDT): Discussed the patient's BMI. The BMI is above average. BMI management plan is completed. BMI Follow-up includes: nutrition counseling, exercise counseling and education provided. Morbid obesity 03/08/2022 03/23/2022 Assessment & Plan (03/08/2022 6:28 PM CDT): Discussed the patient's BMI. The BMI is above average. BMI management plan is completed. BMI Follow-up includes: nutrition counseling, exercise counseling and education provided. Stool mucus 03/08/2022 08/23/2023 Assessment & Plan (04/06/2022 1:49 PM CDT): Chronic diarrhea for the past 2 months alternating with constipation. Diarrhea is associated with mucus in her stool. She denies any rectal bleeding. Differential includes IBD versus IBS versus infectious etiologies. -stool studies ordered -schedule colonoscopy -The risks (risks of bleeding, infection, perforation requiring surgery, missed polyps/cancer, dental injury, aspiration pneumonia, anesthesia complications such as drug reaction and cardiopulmonary complications including rare chance of ), benefits, and alternatives of the planned procedure were explained to the patient who understands and consents to having procedure done. Assessment & Plan (03/08/2022 6:28 PM CDT): Patient has noticed changes other stool including a mucousy type stool. Will refer to GI for further evaluation Morbid obesity with BMI of 50.0-59.9, adult 01/15/2022 03/23/2022 Assessment & Plan (01/15/2022 9:06 AM CDT): Obesity is unchanged. Discussed the patient's BMI. The BMI is above average. BMI management plan is completed. BMI Follow-up includes: nutrition counseling, exercise counseling and education provided. Morbid obesity with BMI of 50.0-59.9, adult 10/16/2021 01/15/2022 Assessment & Plan (12/03/2021 2:51 PM CDT): Obesity is unchanged. Discussed the patient's BMI. The BMI is above average. BMI management plan is completed. BMI Follow-up includes: nutrition counseling, exercise counseling and education provided. Assessment & Plan (10/16/2021 8:33 AM DRUG ENFORCEMENT ADMINISTRATION AGENT): Obesity is unchanged. Discussed the patient's BMI. The BMI is above average. BMI management plan is completed. BMI Follow-up includes: nutrition counseling, exercise counseling and education provided. Acute non-recurrent maxillary sinusitis 10/16/2021 12/03/2021 Assessment & Plan (10/16/2021 2:29 PM DRUG ENFORCEMENT ADMINISTRATION AGENT): Start antibiotic, antihistamine (Claritin OR Zyrtec), Mucinex 12hour and Steroid nasal spray (Flonase). Push fluids. Rest. Supportive care. If sxs worsen or don\'t improve, pt is to followup in the office. Morbid obesity with BMI of 50.0-59.9, adult 09/04/2021 10/16/2021 Assessment & Plan (09/04/2021 3:35 PM DRUG ENFORCEMENT ADMINISTRATION AGENT): Obesity is unchanged. Discussed the patient's BMI. The BMI is above average. BMI management plan is completed. BMI Follow-up includes: nutrition counseling, exercise counseling and education provided. BMI 50.0-59.9, adult 09/04/2021 Assessment & Plan (09/04/2021 3:35 PM DRUG ENFORCEMENT ADMINISTRATION AGENT): Obesity is unchanged. Discussed the patient's BMI. The BMI is above average. BMI management plan is completed. BMI Follow-up includes: nutrition counseling, exercise counseling and education provided. Morbid obesity with BMI of 50.0-59.9, adult 02/24/2021 09/04/2021 Assessment & Plan (02/24/2021 9:07 AM CDT): Obesity is unchanged. Discussed the patient's BMI. The BMI is above average. BMI management plan is completed. BMI Follow-up includes: nutrition counseling, exercise counseling and education provided. Adult BMI 50.0-59.9 kg/sq m 02/24/2021 09/04/2021 Assessment & Plan (02/24/2021 9:08 AM CDT): Obesity is unchanged. Discussed the patient's BMI. The BMI is above average. BMI management plan is completed. BMI Follow-up includes: nutrition counseling, exercise counseling and education provided. Medicare annual wellness visit, subsequent 02/23/2021 10/11/2022 Assessment & Plan (03/08/2022 6:27 PM CDT): Encouraged healthy lifestyle, good nutrition and exercise. Encouraged Calcium and Vitamin D and weight bearing exercise for bone health. Reviewed immunizations. Reviewed age appropirate screenings. Medicare Wellness Documentation is completed within the chart Assessment & Plan (02/24/2021 9:40 AM CDT): Encouraged healthy lifestyle, good nutrition and exercise. Encouraged Calcium and Vitamin D and weight bearing exercise for bone health. Reviewed immunizations Reviewed age appropirate screenings. POLST form provided and reviewed. Morbid obesity with BMI of 50.0-59.9, adult 02/05/2021 02/24/2021 Assessment & Plan (02/05/2021 2:54 PM CDT): Obesity is unchanged. Discussed the patient's BMI. The BMI is above average. BMI management plan is completed. BMI Follow-up includes: nutrition counseling, exercise counseling and education provided. Acute lower respiratory infection 02/05/2021 02/23/2021 Assessment & Plan (02/05/2021 6:03 PM CDT): Suspect pneumonia. It appears as though she is having some improvement from her previous days. She should complete the Augmentin as prescribed. Continue with albuterol inhaler as needed. She states she has plenty at home. Will send out prednisone 60 mg q.a.m. x5 days. Reviewed with her the risks benefits alternatives side effects and proper use. Keep pushing fluids. Patient is to call if she has increased symptoms or go to the ER her O2 sats drop below 92% or has increased difficulty breathing. Await CXR results BMI 50.0-59.9, adult 08/27/2020 021 Assessment & Plan (01/29/2021 1:21 PM CDT): Obesity is unchanged. Discussed the patient's BMI. The BMI is above average. BMI management plan is completed. BMI Follow-up includes: nutrition counseling, exercise counseling and education provided. Assessment & Plan (08/27/2020 7:32 AM DRUG ENFORCEMENT ADMINISTRATION AGENT): Obesity is unchanged. Discussed the patient's BMI. The BMI is above average. BMI management plan is completed. BMI Follow-up includes: nutrition counseling, exercise counseling and education provided. Obesity (BMI 30-39.9) 08/27/20202020 Assessment & Plan (08/27/2020 7:32 AM DRUG ENFORCEMENT ADMINISTRATION AGENT): Obesity is unchanged. Discussed the patient's BMI. The BMI is above average. BMI management plan is completed. BMI Follow-up includes: nutrition counseling, exercise counseling and education provided.\ Encounter for screening mamm ogram for malignant neoplasm of breast 02/21/2020 02/23/2021 Assessment & Plan (08/27/2020 8:16 AM DRUG ENFORCEMENT ADMINISTRATION AGENT): Has order to complete Assessment & Plan (05/25/2020 10:27 AM CDT): Mammogram order provided Assessment & Plan (04/07/2020 8:08 PM CDT): Encouraged healthy lifestyle, good nutrition and exercise. Encouraged Calcium and Vitamin D and weight bearing exercise for bone health. Reviewed immunizations. Reviewed age appropirate screenings. Medicare Wellness Documentation is completed within the chart Flu-like symptoms 07/27/2019 02/21/2020 Assessment & Plan (08/08/2019 12:59 PM DRUG ENFORCEMENT ADMINISTRATION AGENT): Negative flu again Assessment & Plan (07/27/2019 10:35 PM DRUG ENFORCEMENT ADMINISTRATION AGENT): Negative flu screening. Sxs have been persistent so concern may be progressing from viral to bacterial. Will cover with antibotic/complete the Augmentin course. Start antibiotic, antihistamine, Mucinex and Steroid nasal spray. Push fluids. Rest. Supportive care. If sxs worsen or don\'t improve, pt is to followup in the office. Annual physical exam 05/26/2019 021 Assessment & Plan (08/27/2020 8:15 AM DRUG ENFORCEMENT ADMINISTRATION AGENT): Encouraged healthy lifestyle, good nutrition and exercise. Encouraged Calcium and Vitamin D and weight bearing exercise for bone health. Reviewed immunizations Reviewed age appropirate screenings. Assessment & Plan (05/25/2020 10:28 AM CDT): Encouraged healthy lifestyle, good nutrition and exercise. Encouraged Calcium and Vitamin D and weight bearing exercise for bone health. Reviewed immunizations Reviewed age appropirate screenings. Assessment & Plan (05/26/2019 11:04 PM CDT): Encouraged healthy lifestyle, good nutrition and exercise. Encouraged Calcium and Vitamin D and weight bearing exercise for bone health. Reviewed immunizations Reviewed age appropirate screenings. Other fatigue 05/26/2019 02/24/2021 Assessment & Plan (08/27/2020 8:15 AM DRUG ENFORCEMENT ADMINISTRATION AGENT): Probably multifactorial. Check labs and followup to re-evaluate Assessment & Plan (04/07/2020 8:08 PM CDT): Probably multifactorial. Check labs and followup to re-evaluate Assessment & Plan (05/26/2019 11:06 PM CDT): Probably multifactorial. Check labs and followup to re-evaluate Other abnormal glucose 05/26/201902/20 Flu vaccine need 05/26/2019 08/27/2020 Assessment & Plan (05/25/2020 10:27 AM CDT): Updated in the office today Assessment & Plan (05/26/2019 11:05 PM CDT): Updated at office today Hyperglycemia 05/25/2019 10/11/2022 Assessment & Plan (03/08/2022 6:26 PM CDT): Pre-diabetes/hyperglycemia is a precursor to Dm. Stressed importance of working on diet (decrease your simple sugars and one carbohydrate with each meal) and increase you exercise to achieve weight loss and this will help prevent you from progressing to diabetes. Assessment & Plan (10/03/2021 6:05 PM DRUG ENFORCEMENT ADMINISTRATION AGENT): Pre-diabetes/hyperglycemia is a precursor to Dm. Stressed importance of working on diet (decrease your simple sugars and one carbohydrate with each meal) and increase you exercise to achieve weight loss and this will help prevent you from progressing to diabetes. Assessment & Plan (02/23/2021 10:19 AM CDT): Pre-diabetes/hyperglycemia is a precursor to Dm. Stressed importance of working on diet (decrease your simple sugars and one carbohydrate with each meal) and increase you exercise to achieve weight loss and this will help prevent you from progressing to diabetes. Assessment & Plan (08/27/2020 8:15 AM DRUG ENFORCEMENT ADMINISTRATION AGENT): Pre-diabetes is a precursor to Dm. Stressed importance of working on diet (decrease your simple sugars and one carbohydrate with each meal) and increase you exercise to achieve weight loss and this will help prevent you from progressing to diabetes. Assessment & Plan (05/25/2020 10:26 AM CDT): Pre-diabetes is a precursor to Dm. Stressed importance of working on diet (decrease your simple sugars and one carbohydrate with each meal) and increase you exercise to achieve weight loss and this will help prevent you from progressing to diabetes. Assessment & Plan (04/07/2020 8:07 PM CDT): Pre-diabetes/hyperglycemia is a precursor to Dm. Stressed importance of working on diet (decrease your simple sugars and one carbohydrate with each meal) and increase you exercise to achieve weight loss and this will help prevent you from progressing to diabetes. Assessment & Plan (05/26/2019 11:04 PM CDT): This is a significant, separately identifiable problem that was evaluated and managed on the same day as the wellness exam Pre-diabetes is a precursor to Dm. Stressed importance of working on diet (decrease your simple sugars and one carbohydrate with each meal) and increase you exercise to achieve weight loss and this will help prevent you from progressing to diabetes. Bronchitis 02/05/2019 02/21/2020 Assessment & Plan (02/05/2019 4:04 PM CDT): Sxs have improved. Continue allergy medications. Call if sxs return. BMI 50.0-59.9, adult 01/23/201908/27/2 021 Assessment & Plan (05/25/2020 10:25 AM CDT): Obesity is unchanged. Discussed the patient's BMI. The BMI is above average. BMI management plan is completed. BMI Follow-up includes: nutrition counseling, exercise counseling and education provided. Assessment & Plan (04/07/2020 8:07 PM CDT): Obesity is unchanged. Discussed the patient's BMI. The BMI is above average. BMI management plan is completed. BMI Follow-up includes: nutrition counseling, exercise counseling and education provided. Assessment & Plan (08/08/2019 8:31 AM DRUG ENFORCEMENT ADMINISTRATION AGENT): Obesity is unchanged. Discussed the patient's BMI. The BMI is above average. BMI management plan is completed. BMI Follow-up includes: nutrition counseling, exercise counseling and education provided. Assessment & Plan (05/26/2019 11:03 PM CDT): Obesity is unchanged. Discussed the patient's BMI. The BMI is above average. BMI management plan is completed. BMI Follow-up includes: nutrition counseling, exercise counseling and education provided. Assessment & Plan (02/02/2019 11:44 AM CDT): Obesity is unchanged. Discussed the patient's BMI. The BMI is above average; BMI management plan is completed. General weight loss/lifestyle modification strategies discussed (elicit support from others; identify saboteurs; non-food rewards, etc). Encouraged increased exercise. Assessment & Plan (01/23/2019 11:58 AM CDT): Obesity is unchanged. Discussed the patient's BMI. The BMI is above average; BMI management plan is completed. General weight loss/lifestyle modification strategies discussed (elicit support from others; identify saboteurs; non-food rewards, etc). Encouraged increased exercise. Cellulitis 11/14/2014 05/26/2019 Overview (11/12/2016): Cellulitis Morbid obesity 11/14/2014 12/03/2021 Overview (11/12/2016): Obesity Assessment & Plan (12/03/2021 2:51 PM CDT): Obesity is unchanged. Discussed the patient's BMI. The BMI is above average. BMI management plan is completed. BMI Follow-up includes: nutrition counseling, exercise counseling and education provided. Assessment & Plan (01/29/2021 1:21 PM CDT): Obesity is unchanged. Discussed the patient's BMI. The BMI is above average. BMI management plan is completed. BMI Follow-up includes: nutrition counseling, exercise counseling and education provided. Assessment & Plan (08/27/2020 7:42 AM DRUG ENFORCEMENT ADMINISTRATION AGENT): Obesity is unchanged. Discussed the patient's BMI. The BMI is above average. BMI management plan is completed. BMI Follow-up includes: nutrition counseling, exercise counseling and education provided. Assessment & Plan (05/25/2020 10:25 AM CDT): Obesity is unchanged. Discussed the patient's BMI. The BMI is above average. BMI management plan is completed. BMI Follow-up includes: nutrition counseling, exercise counseling and education provided. Assessment & Plan (04/07/2020 8:07 PM CDT): Obesity is unchanged. Discussed the patient's BMI. The BMI is above average. BMI management plan is completed. BMI Follow-up includes: nutrition counseling, exercise counseling and education provided. Assessment & Plan (08/08/2019 8:31 AM DRUG ENFORCEMENT ADMINISTRATION AGENT): Obesity is unchanged. Discussed the patient's BMI. The BMI is above average. BMI management plan is completed. BMI Follow-up includes: nutrition counseling, exercise counseling and education provided. Assessment & Plan (05/26/2019 11:02 PM CDT): Obesity is unchanged. Discussed the patient's BMI. The BMI is above average. BMI management plan is completed. BMI Follow-up includes: nutrition counseling, exercise counseling and education provided. Anxiety 11/14/2014 02/21/2020 Overview (11/12/2016): Anxiety Assessment & Plan (05/26/2019 11:05 PM CDT): Stable with cymbalta, wellbutrin and buspar Depression 11/14/2014 02/21/2020 Overview (11/12/2016): Depression Assessment & Plan (05/26/2019 11:05 PM CDT): See depression Pain in left arm 11/14/2014 02/21/2020 Overview (11/12/2016): Pain in left arm Pain in right arm 11/14/2014 02/21/2020 Overview (11/12/2016): Pain in right arm Closed fracture of bone 11/14/201408/09 Overview (11/12/2016): Closed fracture Immunizations Immunization Administration Dates Next Due Influenza, Quadrivalent, Spl it, Intramuscular 05/28/2020 Influenza, Quadrivalent, Spl it, Preservative Free, Intramuscular 05/23/2023,05/11/2022,06/04/2021,05/23,05/25/2019,07/07/2018,04/27/2017 Influenza, Trivalent, IM (MDV) 05/11/2017,2014 Influenza, Unspecified 05/10/2023,2022(Deferred: Patient Refused) Pfizer SARS-CoV-2 Monovalent Vaccination (12+ Yrs) PURPLE 11/11/2020,10/21/2020 Pneumococcal Conjugate Pcv20 11/19/2021 Pneumococcal Polysaccharide PPV23 12/07/2016 RSV Vaccine, Pref, Recombina nt, Subunit, Adjuvanted, PF, IM (Arexvy) 05/23/2023 Tdap 12/07/2016 Social History Tobacco Use Types Packs/Day Years [...] on file Legal Sex Female 3:10 AM DRUG ENFORCEMENT ADMINISTRATION AGENT Gender Identity Not on file Sexual Orientation Not on file Last Filed Vital Signs Vital Sign Reading Time Taken Comments Blood Pressure 132/80 09/25/2024 9:34 AM DRUG ENFORCEMENT ADMINISTRATION AGENT Pulse 82 09/25/2024 9:34 AM DRUG ENFORCEMENT ADMINISTRATION AGENT Temperature 36.6 C (97.9 F) 09/25/2024 9:34 AM DRUG ENFORCEMENT ADMINISTRATION AGENT Respiratory Rate 16 07/06/2022 1:32 PM DRUG ENFORCEMENT ADMINISTRATION AGENT Oxygen Saturation 99% 09/25/2024 9:34 AM DRUG ENFORCEMENT ADMINISTRATION AGENT Inhaled Oxygen Concentration - - Weight 104.8 kg (231 lb) 09/25/2024 9:34 AM DRUG ENFORCEMENT ADMINISTRATION AGENT Height 157.5 cm (5' 2 ) 09/25/2024 9:34 AM DRUG ENFORCEMENT ADMINISTRATION AGENT Body Mass Index 42.25 09/25/2024 9:34 AM DRUG ENFORCEMENT ADMINISTRATION AGENT Plan of Treatment Not on file Procedures Procedure Name Priority Date/Time Associated Diagnosis Comments CT ABDOMEN PELVIS W CONTRAST Schedule NERY, Read NERY (Appt Today, Awaiting Results) 09/25/2024 2:17 PM DRUG ENFORCEMENT ADMINISTRATION AGENT LLQ pain COMPREHENSIVE METABOLIC PANEL Routine 08/12/2023 9:42 AM DRUG ENFORCEMENT ADMINISTRATION AGENT Type 2 diabetes mellitus with hyperlipidemia (HCC) HEMOGLOBIN A1C Routine 08/12/2023 9:42 AM DRUG ENFORCEMENT ADMINISTRATION AGENT Type 2 diabetes mellitus with hyperlipidemia (HCC) LIPID PANEL Routine 08/12/2023 9:42 AM DRUG ENFORCEMENT ADMINISTRATION AGENT Type 2 diabetes mellitus with hyperlipidemia (HCC) ALBUMIN CREATININE RATIO, URINE Routine 08/12/2023 9:42 AM DRUG ENFORCEMENT ADMINISTRATION AGENT Type 2 diabetes mellitus with hyperlipidemia (HCC) STOOL DNA COLOGUARD Routine 03/16/2023 11:00 AM CDT Colon cancer screening SCREENING MAMMOGRAM BILATERAL W LARS Schedule Routine, Read Routine (OP Routine) 08/27/2021 Breast cancer screening by mammogram from Last 3 Months or Most Recently Relevant to Health Maintenance Results * CT Abdomen Pelvis W Contrast (09/25/2024 2:17 PM DRUG ENFORCEMENT ADMINISTRATION AGENT) Anatomical Region Laterality Modality Body N/A Computed Tomogra phy us Madonna CLAYTON IMAbhishek CT PROCEDURES Final Re sult * Albumin Creatinine Ratio, Urine (08/12/2023 9:42 AM DRUG ENFORCEMENT ADMINISTRATION AGENT) Creatinine, ur 35 20 - 275 mg/dL [facility] Microalbumin, ur <0.2 See Note: mg/dL [facility] Comment: Reference Range: Reference Range Not established Microalbumin/creat ratio NOTE <30 mcg/mg creat [facility] Comment: NOTE: The urine albumin value is less than 0.2 mg/dL therefore we are unable to calculate excretion and/or creatinine ratio. The ADA defines abnormalities in albumin excretion as follows: Albuminuria Category Result (mcg/mg creatinine) Normal to Mildly increased <30 Moderately increased 30-299 Severely increased > OR = 300 The ADA recommends that at least two of three specimens collected within a 3-6 month period be abnormal before considering a patient to be within a diagnostic category. Urine 08/12/2023 9:42 AM DRUG ENFORCEMENT ADMINISTRATION AGENT 08/12/2023 9:43 AM DRUG ENFORCEMENT ADMINISTRATION AGENT Narrative [facility] - 08/13/2023 4:16 PM DRUG ENFORCEMENT ADMINISTRATION AGENT FASTING:YES FASTING: YES Madonna CLAYTON [facility] URINE ORDERABLES Final Result [facility] [address] [place] [address] * Hemoglobin A1c (08/12/2023 9:42 AM DRUG ENFORCEMENT ADMINISTRATION AGENT) Hgb A1C 5.4 <5.7 % of total Hgb [facility] Comment: For the purpose of screening for the presence of diabetes: <5.7% Consistent with the absence of diabetes 5.7-6.4% Consistent with increased risk for diabetes (prediabetes) > or =6.5% Consistent with diabetes This assay result is consistent with a decreased risk of diabetes. Currently, no consensus exists regarding use of hemoglobin A1c for diagnosis of diabetes in children. According to [place] Diabetes Association (ADA) guidelines, hemoglobin A1c <7.0% represents optimal control in non- diabetic patients. Different metrics may apply to specific patient populations. Standards of Medical Care in Diabetes(ADA). Blood 08/12/2023 9:42 AM DRUG ENFORCEMENT ADMINISTRATION AGENT 08/12/2023 9:43 AM DRUG ENFORCEMENT ADMINISTRATION AGENT Narrative [facility] - 08/13/2023 4:16 PM DRUG ENFORCEMENT ADMINISTRATION AGENT FASTING:YES FASTING: YES Madonna CLAYTON LAB BLOOD ORDERABLES Final Result Performing Organization Address [facility]/ZIP Co de Phone Number [facility] [address] [place] [address] * (ABNORMAL) Lipid panel (08/12/2023 9:42 AM DRUG ENFORCEMENT ADMINISTRATION AGENT) Cholesterol 159 <200 mg/dL [facility] HDL 53 > OR = 50 mg/dL [facility] Triglycerides 184(H) <150 mg/dL [facility] LDL 78 mg/dL (calc) [facility] Comment: Reference range: <100 Desirable range <100 mg/dL for primary prevention; <70 mg/dL for patients with CHD or diabetic patients with > or = 2 CHD risk factors. LDL-C is now calculated using the Ellie calculation, which is a validated novel method providing better accuracy than the Friedewald equation in the estimation of LDL-C. Felipe WHATLEY et al. MOLINA. 2013;310(19): 0383-9639 (http://education.23andMe/faq/OUL564) Chol/HDL ratio 3.0 <5.0 (calc) [facility] Non-HDL, (LDL+VLDL) 106 <130 mg/dL (calc) [facility] Comment: For patients with diabetes plus 1 major ASCVD risk factor, treating to a non-HDL-C goal of <100 mg/dL (LDL-C of <70 mg/dL) is considered a therapeutic option. Blood 08/12/2023 9:42 AM DRUG ENFORCEMENT ADMINISTRATION AGENT 08/12/2023 9:43 AM DRUG ENFORCEMENT ADMINISTRATION AGENT Narrative [facility] - 08/13/2023 4:16 PM DRUG ENFORCEMENT ADMINISTRATION AGENT FASTING:YES FASTING: YES Madonna CLAYTON LAB BLOOD ORDERABLES Final Result Performing Organization Address [facility]/ZIP Co de Phone Number [facility] [address] [place] [address] * Comprehensive metabolic panel (08/12/2023 9:42 AM DRUG ENFORCEMENT ADMINISTRATION AGENT) Glucose 90 65 - 99 mg/dL [facility] Comment: Fasting reference interval BUN 23 7 - 25 mg/dL [facility] Creatinine 1.03 0.50 - 1.05 mg/dL [facility] eGFR 60 > OR = 60 mL/min/1.7 3m2 [facility] BUN/creat ratio SEE NOTE: 6 - 22 (calc) [facility] Comment: Not Reported: BUN and Creatinine are within reference range. Sodium 140 135 - 146 mmol/L [facility] Potassium, pl 4.7 3.5 - 5.3 mmol/L [facility] Chloride 104 98 - 110 mmol/L [facility] CO2 29 20 - 32 mmol/L [facility] Calcium 9.7 8.6 - 10.4 mg/dL [facility] Protein, sr 7.0 6.1 - 8.1 g/dL [facility] Albumin 4.0 3.6 - 5.1 g/dL [facility] GLOBULIN 3.0 1.9 - 3.7 g/dL (calc) [facility] Alb/glob ratio 1.3 1.0 - 2.5 (calc) [facility] Bilirubin, total 0.4 0.2 - 1.2 mg/dL [facility] Alk phos 54 37 - 153 U/L [facility] AST 16 10 - 35 U/L [facility] ALT (SGPT) 12 6 - 29 U/L [facility] Blood 08/12/2023 9:42 AM DRUG ENFORCEMENT ADMINISTRATION AGENT 08/12/2023 9:43 AM DRUG ENFORCEMENT ADMINISTRATION AGENT Narrative [facility] - 08/13/2023 4:16 PM DRUG ENFORCEMENT ADMINISTRATION AGENT FASTING:YES FASTING: YES Madonna CLAYTON LAB BLOOD ORDERABLES Final Result [facility] [address] [place] [address] * Stool DNA - Cologuard (03/16/2023 11:00 AM CDT) Stool DNA - Cologuard Negative Negative [employer] [facility] (CLIA #:[id number]) Comment: NEGATIVE TEST RESULT. A negative Cologuard result indicates a low likelihood that a colorectal cancer (CRC) or advanced adenoma (adenomatous polyps with more advanced pre-malignant features) is present. The chance that a person with a negative Cologuard test has a colorectal cancer is less than 1 in 1500 (negative predictive value >99.9%) or has an advanced adenoma is less than 5.3% (negative predictive value 94.7%). These data are based on a prospective cross-sectional study of 10,000 individuals at average risk for colorectal cancer who were screened with both Cologuard and colonoscopy. (Sylvie Glover al, N Engl J Med 2014;370(14):3771-0784) The normal value (reference range) for this assay is negative. COLOGUARD RE-SCREENING RECOMMENDATION: Periodic colorectal cancer screening is an important part of preventive healthcare for asymptomatic individuals at average risk for colorectal cancer. Following a negative Cologuard result, the [place] Cancer Society and U.S. Multi-Society Task Force screening guidelines recommend a Cologuard re-screening interval of 3 years. References: [place] [employer] Society Guideline for Colorectal Cancer Screening: https://www.cancer.org/cancer/kdvxc-lqofzm-ihyqsz/somyxnqhi-cawuqapoq-ctazetc/ac s-rec ommendations.html.; Fredis DK, Nahomi CR, Theresa GonzalesK, Colorectal Cancer Screening: Recommendations for Physicians and Patients from the U.S. Multi-Society Task Force on Colorectal Cancer Screening , Am J Gastroenterology 2017; 112:8450-7136. TEST DESCRIPTION: Composite algorithmic analysis of stool DNA-biomarkers with hemoglobin immunoassay. Quantitative values of individual biomarkers are not reportable and are not associated with individual biomarker result reference ranges. Cologuard is intended for colorectal cancer screening of adults of either sex, 45 years or older, who are at average-risk for colorectal cancer (CRC). Cologuard has been approved for use by the U.S. FDA. The performance of Cologuard was established in a cross sectional study of average-risk adults aged 50-84. Cologuard performance in patients ages 45 to 49 years was estimated by sub-group analysis of near-age groups. Colonoscopies performed for a positive result may find as the most clinically significant lesion: colorectal cancer [4.0%], advanced adenoma (including sessile serrated polyps greater than or equal to 1cm diameter) [20%] or non- advanced adenoma [31%]; or no colorectal neoplasia [45%]. These estimates are derived from a prospective cross-sectional screening study of 10,000 individuals at average risk for colorectal cancer who were screened with both Cologuard and colonoscopy. (Sylvie Glover al, N Engl J Med 2014;370(14):1206-2407.) Cologuard may produce a false negative or false positive result (no colorectal cancer or precancerous polyp present at colonoscopy follow up). A negative Cologuard test result does not guarantee the absence of CRC or advanced adenoma (pre-cancer). The current Cologuard screening interval is every 3 years. ([place] Cancer Society and U.S. Multi-Society Task Force). Cologuard performance data in a 10,000 patient pivotal study using colonoscopy as the reference method can be accessed at the following location: www.Selltag/results. Additional description of the Cologuard test process, warnings and precautions can be found at www.[employer]lerd.Runivermag. Stool 03/16/2023 11:0 0 AM CDT 03/19/2023 5:56 PM CDT [facility] C[facility]TON [facility] BODY FLUIDS AND STOOLS ORDERABLES Final Result [facility] (CLIA #:[id number]) [address] [address] * Screening Mammogram Bilateral W Lars (08/27/2021) Anatomical Region Laterality Modality Breast Bilateral Mammography Madonna CLAYTON IMG MAMMO PROCEDURES Final Result from Last 3 Months or Most Recently Relevant to Health Maintenance Insurance [employer] CHOICE MEDICARE PPO [employer] CHOICE MEDICARE PPO Care Teams Jailer/Training Officer Relationship Specialty Start Date End Date Madonna Salamanca PA [address] [place] [id number] PCP - General Internal Medicine 12/23/20
--- OUTSIDE RECORDS SUMMARY | 2024-09-25 14:39 | XMS_ITS | Clinical Summary ---
Author Organization [facility] Address [address] [place] [address] Care Team Providers Care Business Technology Architect Name Role Phone Madonna Salamanca Primary Care Provider [phone] Allergies Active Allergy Reactions Criticality Noted Date [...] up to 3 doses total 30 tablet 022 Active Additional Information Patient not taking.Reported on 07/06/2023 Ventolin HFA 90 mcg/actuation inhaler Inhale 2 puffs every 4 (four) hours as needed for wheezing 18 g 1 023 Active famotidine (PEPCID) 20 mg tabletIndications :Gastroesophageal reflux disease, unspecified whether esophagitis present Take 1 tablet (20 mg total) by mouth daily 023 Active ondansetron ODT (ZOFRAN-ODT) 4 mg disintegrating tablet DISSOLVE 1 TABLET IN MOUTH EVERY 8 HOURS 023 Active albuterol HFA (PROVENTIL HFA,VENTOLIN HFA,PROAIR HFA) 90 mcg/actuation inhalerIndication s:SOB (shortness of breath) Inhale 2 puffs every 6 (six) hours as needed for wheezing 3 each 4 023 Active potassium chloride ER 20 mEq CR [...] hypertension with coincident congestive heart failure (CMS/HCC) (HCC) Take 1 tablet (3.125 mg total) by [...] 08/23/2023 Assessment & Plan (08/23/2023 9:15 PM TRANSITION SPECIALIST): Managed by Dr. Esteban Continue Lasix 20 b.i.d. potassium Coreg 3.125 b.i.d. lisinopril 10 with aspirin BMI 40.0-44.9, adult 08/22/2023 Assessment & Plan (08/23/2023 9:17 PM TRANSITION SPECIALIST): Discussed the patient's BMI. The BMI is above average. BMI management plan is completed. BMI Follow-up includes: nutrition counseling, exercise counseling and education provided. Positive depression screening 08/22/2023 Assessment & Plan (08/23/2023 9:17 PM TRANSITION SPECIALIST): Continue per psychiatrist Elevated platelet count 08/22/2023 Assessment & Plan (08/23/2023 9:18 PM TRANSITION SPECIALIST): Four years ago the level was just above 500. Will recheck again if remains above 500 will need to see Hematology for further evaluation she is already on an aspirin Right upper quadrant abdominal pain 07/17/2023 Assessment & Plan (07/17/2023 10:52 PM TRANSITION SPECIALIST): Abdominal pain and symptoms have fully resolved. [...] 03/04/2023 Assessment & Plan (08/23/2023 9:17 PM TRANSITION SPECIALIST): Discussed the patient's BMI. The BMI is above average. BMI management plan is completed. BMI Follow-up includes: nutrition counseling, exercise counseling and education provided. Assessment & Plan (07/06/2023 1:15 PM TRANSITION SPECIALIST): Discussed the patient's BMI. The BMI is [...] pending those results. Patient was sent to [facility] and stat results were obtained IMPRESSION: 1. [...] 10/03/2021 Assessment & Plan (08/23/2023 9:16 PM TRANSITION SPECIALIST): Encouraged healthy lifestyle, good nutrition and exercise. Encouraged Calcium and Vitamin D and weight bearing exercise for bone health. Reviewed immunizations Reviewed age appropirate screenings. Assessment & Plan (10/12/2022 1:48 PM TRANSITION SPECIALIST): Encouraged healthy lifestyle, good nutrition and exercise. Encouraged Calcium and Vitamin D and weight bearing exercise for bone health. Reviewed immunizations Reviewed age appropirate screenings. Assessment & Plan (10/03/2021 6:19 PM TRANSITION SPECIALIST): Encouraged healthy lifestyle, good nutrition and exercise. Encouraged Calcium and Vitamin D and weight bearing exercise for bone health. Reviewed immunizations Reviewed age appropirate screenings. Leg cramps 10/03/2021 Assessment & Plan (10/03/2021 6:19 PM TRANSITION SPECIALIST): This is a significant, separately identifiable problem that was evaluated and managed on the same day as the wellness exam Check labs to rule out electrolyte imbalance. Continue CPAP. Abnormal EKG 10/03/2021 Assessment & Plan (10/03/2021 6:20 PM TRANSITION SPECIALIST): This is a significant, separately identifiable problem [...] 02/24/2021 Assessment & Plan (08/23/2023 9:16 PM TRANSITION SPECIALIST): Mammogram order provided Assessment & Plan (03/06/2023 11:26 PM CDT): Mammogram order provided Assessment & Plan (02/24/2021 9:38 AM CDT): Mammogram order provided Fatigue 02/24/2021 Assessment & Plan (07/17/2023 10:54 PM TRANSITION SPECIALIST): Probably multifactorial. Check labs and followup to re-evaluate Assessment & Plan (10/12/2022 1:47 PM TRANSITION SPECIALIST): Probably multifactorial. Check labs and followup to re-evaluate Assessment & Plan (03/08/2022 6:27 PM CDT): Probably multifactorial. Check labs and followup to re-evaluate Assessment & Plan (10/16/2021 2:29 PM TRANSITION SPECIALIST): Continued fatigue. Awaiting recommendation from Cardiology. Scheduled for November. If she has acute chest pain or acute symptoms she is to immediately go to the ER. She voices understanding and agreement. Assessment & Plan (10/03/2021 6:05 PM TRANSITION SPECIALIST): Probably multifactorial. Check labs and followup to re-evaluate Assessment & Plan (02/24/2021 9:38 AM CDT): Probably multifactorial. Check labs and followup to re-evaluate Fever 02/02/2021 Assessment & Plan (02/02/2021 10:21 AM CDT): Check COVID and Strep thru [facility] in [place]. Start antihistamine (Claritin OR Zyrtec), Mucinex 12hour [...] 02/21/2020 Assessment & Plan (08/23/2023 9:16 PM TRANSITION SPECIALIST): Patient follows closely with Dr. Walker her psychiatrist. She is currently on Cymbalta 60 b.i.d. modafinil and Viibryd Assessment & Plan (03/06/2023 11:25 PM CDT): Managed by Dr. Rivera Assessment & Plan (10/12/2022 1:47 PM TRANSITION SPECIALIST): Continue per Dr. Amato. He is managing her medications which include Cymbalta 60 modafinil and Seroquel Assessment & Plan (07/19/2022 11:47 PM TRANSITION SPECIALIST): Continue duloxetine 90 mg daily. Doing well with current dose. Currently using Seroquel to sleep. Psychiatry is helping manage. Assessment & Plan (07/05/2022 5:12 PM TRANSITION SPECIALIST): Continue per Psychiatry. Assessment & Plan (03/08/2022 6:27 PM CDT): Continue with BuSpar and Cymbalta Assessment & Plan (12/03/2021 8:11 PM CDT): Stable with Wellbutrin and Cymbalta Assessment & Plan (10/16/2021 2:29 PM TRANSITION SPECIALIST): Continue per psychiatrist. She is grieving appropriately and has the support around her that she needs. Assessment & Plan (10/03/2021 6:05 PM TRANSITION SPECIALIST): Continue per psychiatrist. She is happy with her current regimen Assessment & Plan (02/23/2021 10:20 AM CDT): Continue per psychiatry Assessment & Plan (08/27/2020 8:17 AM TRANSITION SPECIALIST): Continue cymbalta, buspar and abilify. Encouraged f.u with Dr. Rivera. [...] 02/21/2020 Assessment & Plan (07/17/2023 10:52 PM TRANSITION SPECIALIST): Continue with psychiatrist Dr. Rivera Assessment & Plan (04/04/2022 6:48 PM CDT): Patient continues to have anxiety and depression symptoms. She still and BuSpar and Cymbalta and Wellbutrin. [place] like she had been doing well until this creeped up this week regarding family moving into the home and taking belongings. Encouraged to monitor blood pressure closely and call with readings. If her symptoms get worse she is to call for further evaluation. Assessment & Plan (12/03/2021 8:11 PM CDT): Stable with Wellbutrin and Cymbalta Assessment & Plan (10/03/2021 6:05 PM TRANSITION SPECIALIST): Anxiety is stable with her current regimen. Continue per psychiatrist Assessment & Plan (02/23/2021 10:20 AM CDT): Continue per psychiatry Assessment & Plan (08/27/2020 8:17 AM TRANSITION SPECIALIST): See depression Assessment & Plan (05/25/2020 10:27 AM CDT): See depression Assessment & Plan (04/07/2020 8:09 PM CDT): See depresssion Assessment & Plan (04/06/2020 1:00 PM CDT): See depression Cough 08/08/2019 Assessment & Plan (08/08/2019 12:59 PM TRANSITION SPECIALIST): Persistent after 10 days of Augmentin. Obtain [...] day as the wellness exam Refer to green building energy engineer to further evaluate this black area. Tremor 02/02/2019 Assessment & Plan (02/05/2019 4:06 PM CDT): Pt is concerned and would like to see a specialist. Will refer to neurologist. CASTANEDA (dyspnea on exertion) 01/28/2019 Assessment & Plan (10/12/2022 1:47 PM TRANSITION SPECIALIST): Dyspnea on exertion has improved with the [...] lab/imaging etc. She plans to to to [facility]. Her son is here to take her so she doesn't have to drive. Seasonal allergies 03/31/2018 Gastroesophageal reflux disease without esophagi tis 12/24/2016 Assessment & Plan (10/12/2022 1:49 PM TRANSITION SPECIALIST): Currently stable without medication. Continue with weight [...] apnea Assessment & Plan (08/23/2023 9:16 PM TRANSITION SPECIALIST): Patient has not been using her CPAP. Reviewed the long-term sequela of untreated or undertreated sleep apnea not limited to dementia heart rhythm issues like AFib pulmonary hypertension etc.. Patient has all the needed supplies and just needs to reset it up in her new location Assessment & Plan (10/12/2022 1:46 PM TRANSITION SPECIALIST): Has CPAP at home. Continue to use nightly as instructed. Continue to follow with Dr. Euceda Assessment & Plan (10/03/2021 6:04 PM TRANSITION SPECIALIST): Continue CPAP. Has all needed supplies. Assessment & Plan (08/27/2020 7:43 AM TRANSITION SPECIALIST): Has needed supplies. Using nightly Assessment & Plan (05/25/2020 10:25 AM CDT): Continue CPAP Assessment & Plan (02/21/2020 11:47 AM CDT): Using CPAP Dysthymia 11/14/2014 Overview (11/12/2016): Dysthymia Type 2 diabetes mellitus with hyperlipidemia 03/2015 Overview (11/12/2016): HLD - Hyperlipidaemia Assessment & Plan (08/23/2023 9:15 PM TRANSITION SPECIALIST): Stressed importance of continued A1c control to minimize the detention effects of diabetes. Bring accuchecks to office [...] control Assessment & Plan (07/17/2023 10:57 PM TRANSITION SPECIALIST): Stressed importance of continued A1c control to minimize the detention effects of diabetes. Bring accuchecks to office [...] fenofibrate Assessment & Plan (10/12/2022 1:46 PM TRANSITION SPECIALIST): Encouraged patient to follow low fat/low chol diet like the Mediterranean diet. Increase good fats in the diet. Increase exercise. Monitor labs as needed. Continue fenofibrate and Crestor Assessment & Plan (07/19/2022 11:48 PM TRANSITION SPECIALIST): Encouraged patient to follow low fat/low chol diet like the Mediterranean diet. Increase good fats in the diet. Increase exercise. Monitor labs as needed. Continue statin Stressed importance of continued A1c control to minimize the detention effects of diabetes. Bring accuchecks to office when instructed to do so. Check A1c about every 3-6 months. Take medication as prescribed. Get annual eye exam. Encouraged RYDER/Statin if able to tolerate. Encouraged weight control and encouraged diabetic diet and exercise. Tolerating mounjaro. Continue to titrate up for continue diabetes control and weight loss. Assessment & Plan (07/05/2022 5:11 PM TRANSITION SPECIALIST): New Diagnosis Diabetes. Discussed with patient at length diabetes, pathogenesis, detention sequela, end organ damage, diet/exercise/weight loss, and [...] feet on a regular basis to avoid lobsterman problems. Offered referral to tank hoop bender. Discussed treatment options including metformin versus G [...] Discussed with patient at length diabetes, pathogenesis, lobsterman sequela, end organ damage, diet/exercise/weight loss, and [...] feet on a regular basis to avoid lobsterman problems. Offered referral to tank hoop bender. Discussed treatment options She is very interested [...] in the day she called back stating Fabi is covered. She will start 2.5 mg [...] statin Assessment & Plan (10/03/2021 6:04 PM TRANSITION SPECIALIST): Encouraged patient to follow fat/low chol diet [...] fenofibrate Assessment & Plan (08/27/2020 8:15 AM TRANSITION SPECIALIST): Encouraged patient to follow fat/low chol diet [...] HBP Assessment & Plan (08/23/2023 9:15 PM TRANSITION SPECIALIST): Bp is stable/in acceptable range for any co-morbidities. Encouraged to limit sodium intake and exercise for weight control. Continue Lasix lisinopril and Coreg Assessment & Plan (10/12/2022 1:58 PM TRANSITION SPECIALIST): This is a significant, separately identifiable problem [...] agreement. Assessment & Plan (07/05/2022 5:11 PM TRANSITION SPECIALIST): Bp is stable/in acceptable range for any [...] workup Assessment & Plan (10/03/2021 6:05 PM TRANSITION SPECIALIST): Bp is stable/in acceptable range for any co-morbidities. Encouraged to limit sodium intake and exercise for weight control. Continue Coreg lisinopril and Lasix Assessment & Plan (02/23/2021 10:19 AM CDT): Bp is stable/in acceptable range for any co-morbidities. Encouraged to limit sodium intake and exercise for weight control. Continue lasix and lisinopril Assessment & Plan (08/27/2020 8:15 AM TRANSITION SPECIALIST): Bp is stable/in acceptable range for any [...] 08/19/2012 Assessment & Plan (08/23/2023 9:15 PM TRANSITION SPECIALIST): Managed by Dr. Esteban Continue Lasix 20 [...] 024 Assessment & Plan (07/06/2023 1:15 PM TRANSITION SPECIALIST): Discussed the patient's BMI. The BMI is above average. BMI management plan is completed. BMI Follow-up includes: nutrition counseling, exercise counseling and education provided. Assessment & Plan (03/06/2023 11:28 PM CDT): Discussed the patient's BMI. The BMI is above average. BMI management plan is completed. BMI Follow-up includes: nutrition counseling, exercise counseling and education provided. Continue Guyunsalvatorero. Had built up to 15 but supply is an issue so down at 12.5 and still having good results Morbid obesity 10/12/2022 03/04/2023 Assessment & Plan (10/12/2022 1:09 PM TRANSITION SPECIALIST): Discussed the patient's BMI. The BMI is above average. BMI management plan is completed. BMI Follow-up includes: nutrition counseling, exercise counseling and education provided. BMI 50.0-59.9, adult 10/12/2022 023 Assessment & Plan (10/12/2022 1:10 PM TRANSITION SPECIALIST): Discussed the patient's BMI. The BMI is above average. BMI management plan is completed. BMI Follow-up includes: nutrition counseling, exercise counseling and education provided. Stage 3a chronic kidney disease (CKD) 07/05/2022 08/23/2023 Assessment & Plan (03/06/2023 11:25 PM CDT): Avoid nephrotoxic drugs including NSAIDs. Monitor labs. Assessment & Plan (10/12/2022 1:51 PM TRANSITION SPECIALIST): Avoid nephrotoxic drugs including NSAIDs. Monitor labs. Assessment & Plan (07/05/2022 5:13 PM TRANSITION SPECIALIST): Avoid nephrotoxic drugs including NSAIDs. Monitor labs. [...] 10/12/2022 Assessment & Plan (07/19/2022 11:47 PM TRANSITION SPECIALIST): Discussed the patient's BMI. The BMI is above average. BMI management plan is completed. BMI Follow-up includes: nutrition counseling, exercise counseling and education provided. Majora is helping with weight loss. Will continue to titrate dose as tolerated. Is also helping with diabetes management. Assessment & Plan (07/05/2022 5:13 PM TRANSITION SPECIALIST): Discussed the patient's BMI. The BMI is above average. BMI management plan is completed. BMI Follow-up includes: nutrition counseling, exercise counseling and education provided. Assessment & Plan (03/23/2022 10:08 AM CDT): Obesity is unchanged. Discussed the patient's BMI. The BMI is above average. BMI management plan is completed. BMI Follow-up includes: nutrition counseling, exercise counseling and education provided. Controlled type 2 diabetes m marie with circulatory disorder, without long-term current use of insulin 03/22/2022 03/22/2022 Type 2 diabetes mellitus wit h stage 3a chronic kidney disease, without long-term current use of insulin 03/22/2022 08/23/2023 Assessment & Plan (03/06/2023 11:20 PM CDT): Stressed importance of continued A1c control to minimize the detention effects of diabetes. Bring accuchecks to office when instructed to do so. Check A1c about every 3-6 months. Take medication as prescribed. Get annual eye exam. Encouraged RYDER/Statin if able to tolerate. Encouraged weight control and encouraged diabetic diet and exercise. Continue Mounjaro as A1c is tightly controlled. Assessment & Plan (10/12/2022 1:51 PM TRANSITION SPECIALIST): Stressed importance of continued A1c control to minimize the lobsterman effects of diabetes. Bring accuchecks to office [...] recheck labs to determine A1c control. Continue Mounjaro Assessment & Plan (07/05/2022 5:12 PM TRANSITION SPECIALIST): New diagnosis diabetes. Avoid nephrotoxic drugs including NSAIDs. Monitor labs. Assessment & Plan (04/04/2022 6:48 PM CDT): See diabetes hyperlipidemia as new diagnosis. Avoid nephrotoxic drugs including NSAIDs. Monitor labs. Controlled type 2 diabetes m ellfernando with circulatory disorder, without long-term current use [...] provided. Assessment & Plan (10/16/2021 8:33 AM TRANSITION SPECIALIST): Obesity is unchanged. Discussed the patient's BMI. The BMI is above average. BMI management plan is completed. BMI Follow-up includes: nutrition counseling, exercise counseling and education provided. Acute non-recurrent maxillary sinusitis 10/16/2021 12/03/2021 Assessment & Plan (10/16/2021 2:29 PM TRANSITION SPECIALIST): Start antibiotic, antihistamine (Claritin OR Zyrtec), Mucinex 12hour and Steroid nasal spray (Flonase). Push fluids. Rest. Supportive care. If sxs worsen or don\'t improve, pt is to followup in the office. Morbid obesity with BMI of 50.0-59.9, adult 09/04/2021 10/16/2021 Assessment & Plan (09/04/2021 3:35 PM TRANSITION SPECIALIST): Obesity is unchanged. Discussed the patient's BMI. The BMI is above average. BMI management plan is completed. BMI Follow-up includes: nutrition counseling, exercise counseling and education provided. BMI 50.0-59.9, adult 09/04/2021 022 Assessment & Plan (09/04/2021 3:35 PM TRANSITION SPECIALIST): Obesity is unchanged. Discussed the patient's BMI. [...] provided. Assessment & Plan (08/27/2020 7:32 AM TRANSITION SPECIALIST): Obesity is unchanged. Discussed the patient's BMI. The BMI is above average. BMI management plan is completed. BMI Follow-up includes: nutrition counseling, exercise counseling and education provided. Obesity (BMI 30-39.9) 08/27/20202020 Assessment & Plan (08/27/2020 7:32 AM TRANSITION SPECIALIST): Obesity is unchanged. Discussed the patient's BMI. The BMI is above average. BMI management plan is completed. BMI Follow-up includes: nutrition counseling, exercise counseling and education provided.\ Encounter for screening mamm ogram for malignant neoplasm of breast 02/21/2020 02/23/2021 Assessment & Plan (08/27/2020 8:16 AM TRANSITION SPECIALIST): Has order to complete Assessment & Plan [...] 02/21/2020 Assessment & Plan (08/08/2019 12:59 PM TRANSITION SPECIALIST): Negative flu again Assessment & Plan (07/27/2019 10:35 PM TRANSITION SPECIALIST): Negative flu screening. Sxs have been persistent so concern may be progressing from viral to bacterial. Will cover with antibotic/complete the Augmentin course. Start antibiotic, antihistamine, Mucinex and Steroid nasal spray. Push fluids. Rest. Supportive care. If sxs worsen or don\'t improve, pt is to followup in the office. Annual physical exam 05/26/2019 021 Assessment & Plan (08/27/2020 8:15 AM TRANSITION SPECIALIST): Encouraged healthy lifestyle, good nutrition and exercise. [...] 02/24/2021 Assessment & Plan (08/27/2020 8:15 AM TRANSITION SPECIALIST): Probably multifactorial. Check labs and followup to [...] diabetes. Assessment & Plan (10/03/2021 6:05 PM TRANSITION SPECIALIST): Pre-diabetes/hyperglycemia is a precursor to Dm. Stressed [...] diabetes. Assessment & Plan (08/27/2020 8:15 AM TRANSITION SPECIALIST): Pre-diabetes is a precursor to Dm. Stressed [...] Call if sxs return. BMI 50.0-59.9, adult 01/23/2019 021 Assessment & Plan (05/25/2020 10:25 AM [...] provided. Assessment & Plan (08/08/2019 8:31 AM TRANSITION SPECIALIST): Obesity is unchanged. Discussed the patient's BMI. [...] provided. Assessment & Plan (08/27/2020 7:42 AM TRANSITION SPECIALIST): Obesity is unchanged. Discussed the patient's BMI. [...] provided. Assessment & Plan (08/08/2019 8:31 AM TRANSITION SPECIALIST): Obesity is unchanged. Discussed the patient's BMI. [...] of bone 11/14/201408/09 Overview (11/12/2016): Closed fracture Encounters Date Type Department Care Team Description 09/25/2024 9:30 AM TRANSITION SPECIALIST Office Visit [address] [place] [address] Madonna Salamanca PA Positive depression screening (Primary Dx); LIMA (obstructive sleep apnea); LLQ pain 09/25/2024 Results Follow-Up [address] [place] [id number] Madonna Salamanca PA 09/22/2024 Telephone [facility] [address] [place] [address] Madonna Salamanca PA from Last 3 Months Immunizations Immunization Administration Dates Next Due Influenza, Quadrivalent, Spl it, Intramuscular 05/28/2020 Influenza, Quadrivalent, Spl it, Preservative Free, Intramuscular 05/23/2023,05/11/2022,06/04/2021,05/23,05/25/2019,07/07/2018,04/27/2017 Influenza, Trivalent, IM (MDV) 05/11/2017,2014 Influenza, Unspecified 05/10/2023,2022(Deferred: Patient Refused) Pfizer SARS-CoV-2 Monovalent Vaccination (12+ Yrs) PURPLE 11/11/2020,10/21/2020 Pneumococcal Conjugate Pcv20 11/19/2021 Pneumococcal Polysaccharide PPV23 12/07/2016 RSV Vaccine, Pref, Recombina nt, Subunit, Adjuvanted, PF, IM (Arexvy) 05/23/2023 Tdap 12/07/2016 Surgical History Surgery Date Site/Laterality Comments APPENDECTOMY Appendectomy HYSTERECTOMY hysterectomy OTHER SURGICAL HISTORY Breast bx 06/03/15 OTHER SURGICAL HISTORY 06/03/15- Breast Bx LUMBAR PUNCTURE WO INJECTION , DIAGNOSTIC 08/30/2013 N/A DILATION AND CURETTAGE OF UTERUS CHOLECYSTECTOMY COLONOSCOPY Pt reports last colonoscopy was 10+ years ago (in or before 2011). Medical History Medical History Date Comments Gastroesophageal reflux disease GERD Hypertension Hypertension Hx Other Medical obesity; Commen ts: [facility] 09/11/2014 - Depression Depression Anxiety disorder Anxiety Hx Other Medical diastolic CHF; Comments: [facility] 09/11/2014 - Hx Other Medical LIMA; Comments: [facility] 09/11/2014 - Hx Other Medical Hx cervical can cer; Comments: [facility] 09/11/2014 - Hx Other Medical hx bacterial me ningitis; Comments: [facility] 09/11/2014 - Allergic rhinitis Cancer (CMS/HCC) (HCC) Heart disease HL (hearing loss) Type 2 diabetes mellitus (HCC) Family History Medical History Relation Name Comments Lung cancer Father Cancer, lung; Cancer Maternal Grandfather Cancer, unknown; Breast cancer Maternal Grandmother Cancer , breast; Hypertension Mother Hypertension; Lung cancer Paternal Grandfather Cancer, lung; No Known Problems Paternal Grandmother Asthma Son Relation Name Status Comments Father Maternal Grandfather Maternal Grandmother Mother Alive Paternal Grandfather Paternal Grandmother Alive Son Alive Social History Tobacco Use Types Packs/Day Years [...] on file Legal Sex Female 3:10 AM TRANSITION SPECIALIST Gender Identity Not on file Sexual Orientation Not on file Obstetrics History Last Filed Vital Signs Vital Sign Reading Time Taken Comments Blood Pressure 132/80 09/25/2024 9:34 AM TRANSITION SPECIALIST Pulse 82 09/25/2024 9:34 AM TRANSITION SPECIALIST Temperature 36.6 C (97.9 F) 09/25/2024 9:34 AM TRANSITION SPECIALIST Respiratory Rate 16 07/06/2022 1:32 PM TRANSITION SPECIALIST Oxygen Saturation 99% 09/25/2024 9:34 AM TRANSITION SPECIALIST Inhaled Oxygen Concentration - - Weight 104.8 kg (231 lb) 09/25/2024 9:34 AM TRANSITION SPECIALIST Height 157.5 cm (5' 2 ) 09/25/2024 9:34 AM TRANSITION SPECIALIST Body Mass Index 42.25 09/25/2024 9:34 AM TRANSITION SPECIALIST Plan of Treatment Health Maintenance Due Date Last Done Comments Hepatitis C Screening 1960 Dilated Eye Exam 1960 Foot Exam 1960 Breast Cancer Screening-Mammogram 08/27/2022 08/27/2021, 07/18/2019, 05/13/2016, Additional history exists Hemoglobin A1C 02/10/2024 08/12/2023, 02/06, 03/16/2022, Additional history exists Covid-19 Vaccine (2023-2 5 season) 2024 05/23/2023, 08/03/2022, 11/19/2021, Additional history exists Albumin Creatinine Ratio, Urine 08/12/2024 , 02/22/2023 Lipid Panel 08/12/2024 08/12/2023, 02/06, 09/28/2022, Additional history exists eGFR 08/12/2024 08/12/2023, 02/06, 09/28/2022, Additional history exists Well Visit 65+ 08/16/2024 08/16/2023, 02/07, 10/12/2022, Additional history exists Depression Screening 09/25/2025 09/25/2024, 09/25/2024, 08/16/2023, Additional history exists Fall Risk Assessment 09/25/2025 09/25/2024, 08/16/2023, 03/04/2023, Additional history exists Colon Cancer Screening-DNA Stool 03/16/2026 03/16/20, 02/24/2020 Osteoporosis Screening-Bone Density Scan 08/31/2026 08/31/2024 DTaP/Tdap/Td Vaccine (3 - Td or Tdap) 02/22/2034 02/23/2024, 12/07/2016 Pneumococcal vaccine 65+ Completed 11/19/2021, 0508/2016 Hepatitis B Screening Completed 01/10/2024 Influenza Vaccine Completed 05/12/2024, , 05/10/2023, Additional history exists Zoster Vaccine Completed 05/12/2024, 01/10/2024 Procedures Procedure Name Priority Date/Time Associated Diagnosis Comments CT ABDOMEN PELVIS W CONTRAST Schedule NERY, Read NERY (Appt Today, Awaiting Results) 09/25/2024 2:17 PM TRANSITION SPECIALIST LLQ pain COMPREHENSIVE METABOLIC PANEL Routine 08/12/2023 9:42 AM TRANSITION SPECIALIST Type 2 diabetes mellitus with hyperlipidemia (HCC) HEMOGLOBIN A1C Routine 08/12/2023 9:42 AM TRANSITION SPECIALIST Type 2 diabetes mellitus with hyperlipidemia (HCC) LIPID PANEL Routine 08/12/2023 9:42 AM TRANSITION SPECIALIST Type 2 diabetes mellitus with hyperlipidemia (HCC) ALBUMIN CREATININE RATIO, URINE Routine 08/12/2023 9:42 AM TRANSITION SPECIALIST Type 2 diabetes mellitus with hyperlipidemia (HCC) STOOL DNA COLOGUARD Routine 03/16/2023 11:00 AM CDT Colon cancer screening SCREENING MAMMOGRAM BILATERAL W LARS Schedule Routine, Read Routine (OP Routine) 08/27/2021 Breast cancer screening by mammogram from Last 3 Months or Most Recently Relevant to Health Maintenance Results * CT Abdomen Pelvis W Contrast (09/25/2024 2:17 PM TRANSITION SPECIALIST) Anatomical Region Laterality Modality Body N/A Computed Tomogra phy [facility] C[facility] IMG CT PROCEDURES Final Re sult * Albumin Creatinine Ratio, Urine (08/12/2023 9:42 AM TRANSITION SPECIALIST) Creatinine, ur 35 20 - 275 mg/dL [...] a diagnostic category. Urine 08/12/2023 9:42 AM TRANSITION SPECIALIST 08/12/2023 9:43 AM TRANSITION SPECIALIST Narrative [facility] - 08/13/2023 4:16 PM TRANSITION SPECIALIST FASTING:YES FASTING: YES [facility] URINE ORDERABLES Final Result [facility] [address] [address] * Hemoglobin A1c (08/12/2023 9:42 AM TRANSITION SPECIALIST) Hgb A1C 5.4 <5.7 % of total Hgb [facility] Comment: For the purpose of screening for the presence of diabetes: <5.7% Consistent with the absence of diabetes 5.7-6.4% Consistent with increased risk for diabetes (prediabetes) > or =6.5% Consistent with diabetes This assay result is consistent with a decreased risk of diabetes. Currently, no consensus exists regarding use of hemoglobin A1c for diagnosis of diabetes in children. According to [place] Diabetes [employer] (ADA) guidelines, hemoglobin A1c <7.0% represents optimal control in non- diabetic patients. Different metrics may apply to specific patient populations. Standards of Medical Care in Diabetes(ADA). Blood 08/12/2023 9:42 AM TRANSITION SPECIALIST 08/12/2023 9:43 AM TRANSITION SPECIALIST Narrative [facility] - 08/13/2023 4:16 PM TRANSITION SPECIALIST FASTING:YES FASTING: YES [facility] BLOOD ORDERABLES Final Result Performing Organization Address City/[facility]/ZIP Co de Phone Number [facility] [address] [place] [address] * (ABNORMAL) Lipid panel (08/12/2023 9:42 AM TRANSITION SPECIALIST) Cholesterol 159 <200 mg/dL [facility] HDL 53 > OR = 50 mg/dL [facility] Triglycerides 184(H) <150 mg/dL [facility] LDL 78 mg/dL (calc) [facility] Comment: Reference range: <100 Desirable range <100 mg/dL for primary prevention; <70 mg/dL for patients with CHD or diabetic patients with > or = 2 CHD risk factors. LDL-C is now calculated using the Felipe-Miranda calculation, which is a validated novel method providing better accuracy than the Friedewald equation in the estimation of LDL-C. Felipe SS et al. MOLINA. 2013;310(19): 4607-4358 (http://education.Intuitive User Interfaces/faq/DMN493) Chol/HDL ratio 3.0 <5.0 (calc) [email or web address] Non-HDL, (LDL+VLDL) 106 <130 mg/dL (calc) [email or web address] Comment: For patients with diabetes plus 1 major ASCVD risk factor, treating to a non-HDL-C goal of <100 mg/dL (LDL-C of <70 mg/dL) is considered a therapeutic option. Blood 08/12/2023 9:42 AM TRANSITION SPECIALIST 08/12/2023 9:43 AM TRANSITION SPECIALIST Narrative [facility] - 08/13/2023 4:16 PM TRANSITION SPECIALIST FASTING:YES FASTING: YES [facility] BLOOD ORDERABLES Final Result [facility] [address] [place] [address] * Comprehensive metabolic panel (08/12/2023 9:42 AM TRANSITION SPECIALIST) [facility] Glucose 90 65 - 99 mg/dL [facility] Comment: Fasting reference interval BUN 23 7 - 25 mg/dL [email or web address] Creatinine 1.03 0.50 - 1.05 mg/dL [facility] eGFR 60 > OR = 60 mL/min/1.7 3m2 [facility] BUN/creat ratio SEE NOTE: 6 - 22 (calc) [email or web address] Comment: Not Reported: BUN and Creatinine are within reference range. Sodium 140 135 - 146 mmol/L [facility] Potassium, pl 4.7 3.5 - 5.3 mmol/L [facility] Chloride 104 98 - 110 mmol/L [facility] CO2 29 20 - 32 mmol/L [facility] Calcium 9.7 8.6 - 10.4 mg/dL [facility] Protein, sr 7.0 6.1 - 8.1 g/dL [facility] Albumin 4.0 3.6 - 5.1 g/dL [facility] GLOBULIN 3.0 1.9 - 3.7 g/dL (calc) [facility] Alb/glob ratio 1.3 1.0 - 2.5 (calc) [facility] Bilirubin, total 0.4 0.2 - 1.2 mg/dL [facility] Alk phos 54 37 - 153 U/L [facility] AST 16 10 - 35 U/L [facility] ALT (SGPT) 12 6 - 29 U/L [facility] Blood 08/12/2023 9:42 AM TRANSITION SPECIALIST 08/12/2023 9:43 AM TRANSITION SPECIALIST Narrative [facility] - 08/13/2023 4:16 PM TRANSITION SPECIALIST FASTING:YES FASTING: YES [facility] BLOOD ORDERABLES Final Result EDD [facility] [address] [place] [address] * Stool DNA - Cologuard (03/16/2023 11:00 AM CDT) Stool DNA - Cologuard Negative Negative [facility] (CLIA #:[id number]) Comment: NEGATIVE TEST RESULT. A negative Cologuard [...] (Sylvie Glover al, N Engl J Med 2014;370(14):0660-4567) The normal value (reference range) for this assay is negative. COLOGUARD RE-SCREENING RECOMMENDATION: Periodic colorectal cancer screening is an important part of preventive healthcare for asymptomatic individuals at average risk for colorectal cancer. Following a negative Cologuard result, the [place] Cancer Society and U.S. Multi-Society Task Force screening guidelines recommend a Cologuard re-screening interval of 3 years. References: [place] [employer] Guideline for Colorectal Cancer Screening: https://www.cancer.org/cancer/bivsy-hlhhlj-btkxfk/yvzumtrrf-prlzcknxk-cjbmuzn/ac s-rec ommendations.html.; Fredis DK, Nahomi CR, Theresa GonzalesK, Colorectal Cancer Screening: Recommendations for Physicians and Patients from the U.S. Multi-Society Task Force on Colorectal Cancer Screening , Am J Gastroenterology 2017; 112:5268-2955. TEST DESCRIPTION: Composite algorithmic analysis of stool [...] (Sylvie Glover al, N Engl J Med 2014;370(14):6105-5259.) Cologuard may produce a false negative or false positive result (no colorectal cancer or precancerous polyp present at colonoscopy follow up). A negative Cologuard test result does not guarantee the absence of CRC or advanced adenoma (pre-cancer). The current Cologuard screening interval is every 3 years. ([place] Cancer Society and U.S. Multi-Society Task Force). Cologuard performance data in a 10,000 patient pivotal study using colonoscopy as the reference method can be accessed at the following location: www.Invite Media.D2S/results. Additional description of the Cologuard test process, warnings and precautions can be found at www.Moonfryerd.[email or web address]. Stool 03/16/2023 11:0 0 AM CDT 03/19/2023 5:56 PM CDT [facility] BODY FLUIDS AND STOOLS ORDERABLES Final Result [facility] (CLIA #:[id number]) [address] [place] [address] * Screening Mammogram Bilateral W Lars (08/27/2021) Anatomical Region Laterality Modality Breast Bilateral Mammography [facility] MAMMO PROCEDURES Final Result from Last 3 Months or Most Recently Relevant to Health Maintenance Insurance [employer] MEDICARE PPO [employer] CHOICE MEDICARE PPO Care Teams Business Technology Architect Relationship Specialty Start Date End Date Madonna Salamanca PA [address] [address] PCP - General Internal Medicine 12/23/20
== END 2024-09-25 11:57 | disposition home or self-care (01) ==
PROVIDERS: PCP Physician Assistant; Visit Provider Physician Assistant
DX: R10.32 Left lower quadrant pain (principal); K40.90 Unilateral inguinal hernia, without obstruction or gangrene, not specified as recurrent
CPT/HCPCS: 74177; Q9967

== ENCOUNTER 2025-07-08 16:17 | Emergency (ER) | payer MEDICARE, SELFPAY ==
--- NOTE | ~2025-07-08 | XR_ITS ---
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 Findings: There is an impacted fracture of the distal radius angulated slightly towards the dorsal aspect with mild displacement dorsally. Moderate degenerative changes of the first metacarpal carpal joint. Soft tissue swelling. Impression: Distal radial fracture Reviewed, dictated and finalized at location P. NO GAMING WORKER Impression: Distal radial fracture
--- NOTE | ~2025-07-08 | XR_ITS ---
EXAMINATION: XR wrist RT 2V, 07/08/2025 18:54 BATON TEACHER HISTORY: post splint COMPARISON: No comparisons available. Findings: Fracture of the distal radius redemonstrated with improvement in alignment compared to the prior study. No significant degenerative changes. Soft tissue swelling. Impression: Distal radial fracture Reviewed, dictated and finalized at location P. N TEACHER Impression: Distal radial fracture
[2025-07-08 16:19] VITALS: BP 146/87; PULSE 88; RESP 18; TEMP 36.4; O2SAT 97
--- OUTSIDE RECORDS SUMMARY | 2025-07-08 16:19 | XMS_ITS | Patient Health Record ---
Author Organization [facility] Address [address] [place] [address] Care Team Providers Care Money Room Supervisor Name Role Phone Ava Montes Unavailable [phone] Reason For Referral No Information Medications Medication SIG (Take, Route, Frequency, Duration) Notes Start Date End Date Status DULoxetine HCl 30 MG Capsule Delayed Release Particles Oral 06/29/2023 Active Lisinopril 10 MG Tablet Oral 06/29/2023 Active hydrOXYzine HCl 25 MG Tablet Oral 06/29/2023 Active DULoxetine HCl 60 MG Capsule Delayed Release Particles Oral 06/29/2023 Active Modafinil 100 MG Tablet Oral 06/29/2023 Active traZODone HCl 100 MG Tablet Oral 06/29/2023 Active ARIPiprazole 20 MG Tablet Oral 06/29/2023 Active Isosorbide Mononitrate ER 30 MG Tablet Extended Release 24 Hour Oral 06/29/2023 Active Fenofibrate Micronized 134 MG Capsule Oral 06/29/2023 Active Mounjaro 5 MG/0.5ML Solution Pen-injector Subcutaneous *Reorder from [facility] for eRx and Interaction Alerts* 06/29/2023 Active Viibryd 10 MG Tablet Oral 06/29/2023 Active metroNIDAZOLE 500 MG Tablet Oral 06/29/2023 Active Ondansetron 4 MG Tablet Disintegrating Oral 06/29/2023 Active Furosemide 40 MG Tablet Oral 06/29/2023 Active Carvedilol 3.125 MG Tablet Oral 06/29/2023 Active Vilazodone HCl 20 MG Tablet Oral 06/29/2023 Active MOUNJARO 12.5 MG/0.5 ML SUBCUTANEOUS PEN INJECTOR *Reorder from [facility] for eRx and Interaction Alerts* 06/29/2023 Active Furosemide 20 MG Tablet Oral 06/29/2023 Active Ventolin HFA 108 (90 Base) MCG/ACT Aerosol Solution Inhalation 06/29/2023 Active Mounjaro 2.5 MG/0.5ML Solution Pen-injector Subcutaneous *Reorder from [facility] for eRx and Interaction Alerts* 06/29/2023 Active Viibryd 20 MG Tablet Oral 06/29/2023 Active Vilazodone HCl 40 MG Tablet Oral 06/29/2023 Active Rosuvastatin Calcium 10 MG Tablet Oral 06/29/2023 Active Escitalopram Oxalate 5 MG Tablet Oral 06/29/2023 Active Mounjaro 7.5 MG/0.5ML Solution Pen-injector Subcutaneous *Reorder from [facility] for eRx and Interaction Alerts* 06/29/2023 Active clonazePAM 0.5 MG Tablet Oral 06/29/2023 Active Potassium Chloride Danielle ER 20 MEQ Tablet Extended Release Oral 06/29/2023 Active MOUNJARO 15 MG/0.5 ML SUBCUTANEOUS PEN INJECTOR *Reorder from [facility] for eRx and Interaction Alerts* 06/29/2023 Active Cephalexin 500 MG Capsule Oral 06/29/2023 Active Immunizations Vaccine Route Administration Date Status Comme nts Influenza virus vaccine, quadrivalent (IIV4), split virus, 0.25 mL dosage Unknown 05/28/2020 Administered Influenza, seasonal, injecta ble, preservative free, 3 yrs and above Unknown 05/24/2015 Administered Influenza, seasonal, injecta ble, preservative free, 3 yrs and above Unknown 05/11/2017 Administered Influenza, unspecified formulation Unknown 05/11/2022 A dministered Moderna Covid-19 Vaccine 1st dose Unknown 06/10/2021 Ad ministered Novel [id number]-[id number], preservative free Unknown 04/27/2017 Administered Novel [id number]-W4Y9-10, preservative free Unknown 07/07/2018 Administered Novel Fqyxmbppc-V3K9-30, preservative free Unknown 05/25/2019 Administered Novel Netshicvz-G3P4-51, preservative free Unknown 05/23/2020 Administered Pfizer Biontech Covid-19 Vac cine 2nd dose Unknown 10/21/2020 Administered Pfizer Biontech Covid-19 Vac cine 2nd dose Unknown 11/11/2020 Administered Pfizer Biontech Covid-19 Vac cine 2nd dose Unknown 11/19/2021 Administered Pneumococcal polysaccharide PPV23 Unknown 12/07/2016 Ad ministered Tdap Unknown 12/07/2016 Administered Social History Social History Additional Details Category Social Info Options Details Migrated Social History Migrated Social History Alcohol Intake: None 10/29/2021,Tobacco Years: Former smoker 10/02/2020,Smoking Status: 10 06/29/2023 Plan Of Treatment No Information Insurance Providers Payer Name Payer Address Payer Phone Subscriber Number Group Number Insured Name Patient Relationship to Insured Coverage Start Date Coverage End Date [employer] Medicare Replacemen t/Advantag e - [place] [address] [address] [place] [address] [id number] SHIREEN HAKWINS Self - patient is the insured Medical (General) History Surgical History Surgery Date(Month/Year) Oophorectomy (17792) Breast surgery (87448) Appendectomy (81871) Hysterectomy (29478) Other Removal of gallbladder (87835)
--- OUTSIDE RECORDS SUMMARY | 2025-07-08 16:19 | XMS_ITS | Encounter Summary ---
Author Organization [facility] Care Team Providers Care Conflict Resolution Professional Name Role Phone Madonna Salamanca Primary Care Provider [phone]- [phone] Madonna Salamanca Primary Care Provider +1- [phone] Encounter Details Date Type Department Care Team (Latest Contact Info) Description 04/04/2018 Orders Only [facility] CLINCONV ProviderElisa MD [address] [place] [address] Social History Tobacco Use Types Packs/Day Years Used Date Smoking Tobacco: Never Alcohol Use Standard Drinks/Week Comments Yes 0 (1 standard drink = 0.6 oz pur e alcohol) Comments Unknown Sex and Gender Information Value Date Recorded Sex Assigned at Not on file Legal Sex Female 3:10 AM CIRCUS AGENT Gender Identity Not on file Sexual [...] AM CDT Ordered by an unspecified provider. Historical Provider Final Res ult documented in this encounter Visit Diagnoses Not on filedocumented in this encounter Additional Health Concerns Infection Onset Date Last Indicated Resolved Time COVID: Suspected 01/29/2021 01/29/2021 01/30/2021 3:33 AM CDT COVID: Suspected 05/01/2022 05/01/2022 05/01/2022 12:26 PM CDT documented as of this encounter Care Teams Conflict Resolution Professional Relationship Specialty Start Date End Date Madonna Salamanca PA [address] [facility] [address] [place] [address] PCP - General 01/23/19 12/22/20 Madonna Salamanca PA [address] [facility] [address] [place] [address] PCP - General Internal Medicine 12/23/20 documented as of this encounter
--- OUTSIDE RECORDS SUMMARY | 2025-07-08 16:19 | XMS_ITS | Encounter Summary ---
Author Organization [facility] Care Team Providers Care Concrete Building Assembler Name Role Phone Madonna Salamanca Primary Care Provider +1- [phone] Madonna Salamanca Primary Care Provider +1- [phone] Encounter Details Date Type Department Care Team (Latest Contact Info) Description 01/20/2017 Orders Only [facility] CLINCONV ProviderElisa MD [address] [place] [address] Social History Tobacco Use Types Packs/Day Years Used Date Smoking Tobacco: Never Alcohol Use Standard Drinks/Week Comments Yes 0 (1 standard drink = 0.6 oz pur e alcohol) Comments Unknown Sex and Gender Information Value Date Recorded Sex Assigned at Not on file Legal Sex Female 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
--- OUTSIDE RECORDS SUMMARY | 2025-07-08 16:19 | XMS_ITS | Clinical Summary ---
Author Organization [facility] [address] 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 Automatic Name Role Phone Madonna Salamanca Primary Care Provider [phone] Allergies Active Allergy Reactions Criticality Noted Date Comments Niacin Hives,Swelling Medium Medications aspirin 81 mg tablet take 1 tablet by oral route every day 0 0 015 Active multivitamin (MULTIPLE VITAMINS) tablet tablet take 1 by Oral route once 0 0 015 Active Ventolin HFA 90 mcg/actuation inhaler Inhale 2 puffs every 4 (four) hours as needed for wheezing 18 g 1 023 Active famotidine (PEPCID) 20 mg tabletIndications :Gastroesophageal reflux disease, unspecified whether esophagitis present Take 1 tablet (20 mg total) by mouth daily 023 Active fluticasone propionate (FLONASE) 50 mcg/actuation nasal spray Administer 2 sprays into each nostril daily 3 each 1 025 Active fenofibrate micronized (LOFIBRA) 134 mg capsule Take 1 capsule (134 mg total) by mouth daily before breakfast 90 capsule 2 025 Active lisinopriL (PRINIVIL,ZESTRIL ) 10 mg tabletIndications :Hypertension associated with diabetes (HCC) Take 1 tablet (10 mg total) by mouth daily 90 tablet 1 025 Active rosuvastatin (CRESTOR) 10 mg tabletIndications :Type 2 diabetes mellitus with hyperlipidemia (HCC) Take 1 tablet (10 mg total) by mouth daily 90 tablet 1 025 Active carvediloL (COREG) 3.125 mg tabletIndications :Benign hypertension with coincident congestive heart failure (HCC) Take 1 tablet by mouth twice daily 180 tablet Active furosemide (LASIX) 20 mg tabletIndications :Chronic diastolic congestive heart failure (HCC) Take 1 tablet by mouth twice daily 180 tablet 025 Active tirzepatide (Mounjaro) 15 mg/0.5 mL pen injector injectionIndicati ons:type 2 diabetes mellitus Inject 0.5 mL (15 mg total) under the skin once a week 6 mL 1 Active potassium chloride ER 20 mEq CR tabletIndications :Palpitations Take 1 tablet (20 mEq total) by mouth 2 (two) times a day 180 tablet 1 Active gabapentin (NEURONTIN) 400 mg capsule Take 1 capsule (400 mg total) by mouth 3 (three) times a day 90 capsule [address] (CYMBALTA) 30 mg capsuleIndication s:Moderate episode of recurrent major depressive disorder (HCC) TAKE 2 CAPSULES BY MOUTH IN THE MORNING AND 1 IN THE EVENING 270 capsule Active albuterol HFA (PROVENTIL HFA,VENTOLIN HFA,PROAIR HFA) 90 mcg/actuation inhalerIndication s:SOB (shortness of breath) Inhale 2 puffs every 6 (six) hours as needed for wheezing 3 each 4 023 2024 Discontinued tirzepatide (Mounjaro) 15 mg/0.5 mL pen injector injection Inject 0.5 mL (15 mg total) under the skin once a week 025 2024 Discontinued(R eorder) DULoxetine DR (CYMBALTA) 30 mg capsuleIndication s:Moderate episode of recurrent major depressive disorder (HCC) 60mg in the morning 30mg in the evening 270 capsule 1 025 2024 Discontinued potassium chloride ER 20 mEq CR tabletIndications :Palpitations Take 1 tablet (20 mEq total) by mouth 2 (two) times a day 180 tablet 1 025 2024 Discontinued(R eorder) gabapentin (NEURONTIN) 300 mg capsule Take 1 capsule by mouth twice daily 180 capsule 025 2024 Discontinued Active Problems Problem Noted Date Diagnosed Date Psychophysiological insomnia 10/25/2024 Restless legs 10/25/2024 Cigarette nicotine dependence in remission 10/25 Simple chronic bronchitis 10/25/2024 LIMA (obstructive sleep apnea) 10/08/2024 Assessment & Plan (10/08/2024 12:32 AM FOOD AND DRUG INSPECTOR): Patient has LIMA. She states her CPAP is not working. She is unsure if she is still snoring Recommend a referral back to sleeps to re-evaluate and determine if treatment is still required. Referral placed to Dr. Kinsey ESTRELLA pain 10/08/2024 Assessment & Plan (10/08/2024 12:32 AM FOOD AND DRUG INSPECTOR): This is a significant, separately identifiable problem that was evaluated and managed on the same day as the wellness exam Patient has noted left lower quadrant pain for the last 3 weeks or so. She went to the ER but left without being seen she had insurance issues. She is noting increased discomfort with bumps in the car. Has a history of diverticulitis. Benign hypertension with coi ncident congestive heart failure 08/23/2023 Assessment & Plan (10/08/2024 12:30 AM FOOD AND DRUG INSPECTOR): Managed by cardiology. Continue to tightly control hypertension. Currently she appears compensated. Continue aspirin Lasix potassium Coreg and lisinopril Assessment & Plan (08/23/2023 9:15 PM FOOD AND DRUG INSPECTOR): Managed by Dr. Esteban Continue Lasix 20 b.i.d. potassium Coreg 3.125 b.i.d. lisinopril 10 with aspirin BMI 40.0-44.9, adult 08/22/2023 Assessment & Plan (06/25/2025 11:02 AM FOOD AND DRUG INSPECTOR): Discussed the patient's BMI. The BMI is above average. BMI management plan is completed. BMI Follow-up includes: nutrition counseling, exercise counseling and education provided. Assessment & Plan (12/21/2024 7:35 AM CDT): Discussed the patient's BMI. The BMI is above average. BMI management plan is completed. BMI Follow-up includes: nutrition counseling, exercise counseling and education provided. Assessment & Plan (10/08/2024 12:30 AM FOOD AND DRUG INSPECTOR): Discussed the patient's BMI. The BMI is above average. BMI management plan is completed. BMI Follow-up includes: nutrition counseling, exercise counseling and education provided. Assessment & Plan (08/23/2023 9:17 PM FOOD AND DRUG INSPECTOR): Discussed the patient's BMI. The BMI is above average. BMI management plan is completed. BMI Follow-up includes: nutrition counseling, exercise counseling and education provided. Elevated platelet count 08/22/2023 Assessment & Plan (08/23/2023 9:18 PM FOOD AND DRUG INSPECTOR): Four years ago the level was just above 500. Will recheck again if remains above 500 will need to see Hematology for further evaluation she is already on an aspirin Medicare annual wellness visit, subsequent 03/06 Assessment & Plan (10/08/2024 12:30 AM FOOD AND DRUG INSPECTOR): Encouraged healthy lifestyle, good nutrition and exercise. Encouraged Calcium and Vitamin D and weight bearing exercise for bone health. Reviewed immunizations. Reviewed age appropirate screenings. Medicare Wellness Documentation is completed within the chart Assessment & Plan (03/06/2023 11:36 PM CDT): Encouraged healthy lifestyle, good nutrition and exercise. Encouraged Calcium and Vitamin D and weight bearing exercise for bone health. Reviewed immunizations. Reviewed age appropirate screenings. Medicare Wellness Documentation is completed within the chart Morbid obesity 03/04/2023 Assessment & Plan (06/25/2025 11:02 AM FOOD AND DRUG INSPECTOR): Discussed the patient's BMI. The BMI is above average. BMI management plan is completed. BMI Follow-up includes: nutrition counseling, exercise counseling and education provided. Assessment & Plan (12/21/2024 7:36 AM CDT): Discussed the patient's BMI. The BMI is above average. BMI management plan is completed. BMI Follow-up includes: nutrition counseling, exercise counseling and education provided. Assessment & Plan (10/08/2024 12:30 AM FOOD AND DRUG INSPECTOR): Discussed the patient's BMI. The BMI is above average. BMI management plan is completed. BMI Follow-up includes: nutrition counseling, exercise counseling and education provided. Assessment & Plan (08/23/2023 9:17 PM FOOD AND DRUG INSPECTOR): Discussed the patient's BMI. The BMI is above average. BMI management plan is completed. BMI Follow-up includes: nutrition counseling, exercise counseling and education provided. Assessment & Plan (07/06/2023 1:15 PM FOOD AND DRUG INSPECTOR): Discussed the patient's BMI. The BMI is [...] pending those results. Patient was sent to [facility] and stat results were obtained IMPRESSION: 1. [...] week if not improving, sooner if worsening. Diverticulitis 12/03/2021 Assessment & Plan (10/08/2024 12:31 AM FOOD AND DRUG INSPECTOR): This is a significant, separately identifiable problem that was evaluated and managed on the same day as the wellness exam Stat CT reveals diverticulitis. Results were called to patient and Cipro and Flagyl were sent to pharmacy. Continue with a very light diet and progressed slowly to a brat diet before returning to normal foods. Continue to monitor closely for any types of progression of symptoms including increased pain fever chills or sweats she did have history of an abscess in the past. Assessment & Plan (04/06/2022 1:51 PM CDT): [...] to pharmacy for her nausea. Palpitations 12/01/2021 Moderate episode of recurrent major depressive d isorder 02/21/2020 Assessment & Plan (10/08/2024 12:29 AM FOOD AND DRUG INSPECTOR): Depression symptoms are stable. She is seeing Dr. Amato her psychiatrist. Currently on Cymbalta and Inderal 10 mg b.i.d. for the anxiety Assessment & Plan (08/23/2023 9:16 PM FOOD AND DRUG INSPECTOR): Patient follows closely with Dr. Walker her psychiatrist. She is currently on Cymbalta 60 b.i.d. modafinil and Viibryd Assessment & Plan (03/06/2023 11:25 PM CDT): Managed by Dr. Rivera Assessment & Plan (10/12/2022 1:47 PM FOOD AND DRUG INSPECTOR): Continue per Dr. Amato. He is managing her medications which include Cymbalta 60 modafinil and Seroquel Assessment & Plan (07/19/2022 11:47 PM FOOD AND DRUG INSPECTOR): Continue duloxetine 90 mg daily. Doing well with current dose. Currently using Seroquel to sleep. Psychiatry is helping manage. Assessment & Plan (07/05/2022 5:12 PM FOOD AND DRUG INSPECTOR): Continue per Psychiatry. Assessment & Plan (03/08/2022 6:27 PM CDT): Continue with BuSpar and Cymbalta Assessment & Plan (12/03/2021 8:11 PM CDT): Stable with Wellbutrin and Cymbalta Assessment & Plan (10/16/2021 2:29 PM FOOD AND DRUG INSPECTOR): Continue per psychiatrist. She is grieving appropriately and has the support around her that she needs. Assessment & Plan (10/03/2021 6:05 PM FOOD AND DRUG INSPECTOR): Continue per psychiatrist. She is happy with her current regimen Assessment & Plan (02/23/2021 10:20 AM CDT): Continue per psychiatry Assessment & Plan (08/27/2020 8:17 AM FOOD AND DRUG INSPECTOR): Continue cymbabdullahi, buspar and abilify. Encouraged f.u with Dr. Rivera. Assessment & Plan (05/25/2020 10:27 AM CDT): This is a significant, separately identifiable problem that was evaluated and managed on the same day as the wellness exam Continue Cymbalpavan, buspar and stop the Wellbutrin. Stressed importance [...] Abilfy first. Anxiety 02/21/2020 Assessment & Plan (10/08/2024 12:29 AM FOOD AND DRUG INSPECTOR): Depression symptoms are stable. She is seeing Dr. Amato her psychiatrist. Currently on Cymbalta and Inderal 10 mg b.i.d. for the anxiety Assessment & Plan (07/17/2023 10:52 PM FOOD AND DRUG INSPECTOR): Continue with psychiatrist Dr. Rivera Assessment & Plan (04/04/2022 6:48 PM CDT): Patient continues to have anxiety and depression symptoms. She still and BuSpar and Cymbalta and Wellbutrin. [place] like she had been doing well until this creeped up this week regarding family moving into the home and taking belongings. Encouraged to monitor blood pressure closely and call with readings. If her symptoms get worse she is to call for further evaluation. Assessment & Plan (12/03/2021 8:11 PM CDT): Stable with Wellbutrin and Cymbalta Assessment & Plan (10/03/2021 6:05 PM FOOD AND DRUG INSPECTOR): Anxiety is stable with her current regimen. Continue per psychiatrist Assessment & Plan (02/23/2021 10:20 AM CDT): Continue per psychiatry Assessment & Plan (08/27/2020 8:17 AM FOOD AND DRUG INSPECTOR): See depression Assessment & Plan (05/25/2020 10:27 AM CDT): See depression Assessment & Plan (04/07/2020 8:09 PM CDT): See depresssion Assessment & Plan (04/06/2020 1:00 PM CDT): See depression Nail abnormality 05/26/2019 Assessment & Plan (05/26/2019 11:08 PM CDT): This is a significant, separately identifiable problem that was evaluated and managed on the same day as the wellness exam Refer to regional account executive to further evaluate this black area. Tremor 02/02/2019 Assessment & Plan (02/05/2019 4:06 PM CDT): Pt is concerned and would like to see a specialist. Will refer to neurologist. CASTANEDA (dyspnea on exertion) 01/28/2019 Assessment & Plan (10/12/2022 1:47 PM FOOD AND DRUG INSPECTOR): Dyspnea on exertion has improved with the [...] lab/imaging etc. She plans to to to [facility]. Her son is here to take her so she doesn't have to drive. Seasonal allergies 03/31/2018 Gastroesophageal reflux disease without esophagi tis 12/24/2016 Assessment & Plan (10/12/2022 1:49 PM FOOD AND DRUG INSPECTOR): Currently stable without medication. Continue with weight loss effort as it will continue to improve her symptoms Cholecystitis 11/14/2014 Overview (11/12/2016): Cholecystitis Hypersomnia 11/14/2014 Overview (11/12/2016): Hypersomnia Assessment & Plan (02/23/2021 10:20 AM CDT): Continue per sleep Edema 11/14/2014 Overview (11/12/2016): Edema Chronic pain syndrome 11/14/2014 Overview (11/12/2016): Chronic pain syndrome Speech disturbance 11/14/2014 Overview (11/12/2016): Disturbance in speech Dysthymia 11/14/2014 Overview (11/12/2016): Dysthymia Type 2 diabetes mellitus with hyperlipidemia 03/2015 Overview (11/12/2016): HLD - Hyperlipidaemia Assessment & Plan (10/08/2024 12:34 AM FOOD AND DRUG INSPECTOR): Encouraged patient to follow low fat/low chol diet like the Mediterranean diet. Increase good fats in the diet. Increase exercise. Monitor labs as needed. Continue Crestor and fenofibrate Stressed importance of continued A1c control to minimize the penitentiary effects of diabetes. Bring accuchecks to office when instructed to do so. Check A1c about every 3-6 months. Take medication as prescribed. Get annual eye exam. Encouraged RYDER/Statin if able to tolerate. Encouraged weight control and encouraged diabetic diet and exercise. Last A1c is 5.1 in August. Continue the Mounjaro 15 Assessment & Plan (08/23/2023 9:15 PM FOOD AND DRUG INSPECTOR): Stressed importance of continued A1c control to minimize the termite treater effects of diabetes. Bring accuchecks to office [...] control Assessment & Plan (07/17/2023 10:57 PM FOOD AND DRUG INSPECTOR): Stressed importance of continued A1c control to minimize the termite treater effects of diabetes. Bring accuchecks to office [...] fenofibrate Assessment & Plan (10/12/2022 1:46 PM FOOD AND DRUG INSPECTOR): Encouraged patient to follow low fat/low chol diet like the Mediterranean diet. Increase good fats in the diet. Increase exercise. Monitor labs as needed. Continue fenofibrate and Crestor Assessment & Plan (07/19/2022 11:48 PM FOOD AND DRUG INSPECTOR): Encouraged patient to follow low fat/low chol diet like the Mediterranean diet. Increase good fats in the diet. Increase exercise. Monitor labs as needed. Continue statin Stressed importance of continued A1c control to minimize the penitentiary effects of diabetes. Bring accuchecks to office when instructed to do so. Check A1c about every 3-6 months. Take medication as prescribed. Get annual eye exam. Encouraged RYDER/Statin if able to tolerate. Encouraged weight control and encouraged diabetic diet and exercise. Tolerating mounjaro. Continue to titrate up for continue diabetes control and weight loss. Assessment & Plan (07/05/2022 5:11 PM FOOD AND DRUG INSPECTOR): New Diagnosis Diabetes. Discussed with patient at length diabetes, pathogenesis, penitentiary sequela, end organ damage, diet/exercise/weight loss, and [...] feet on a regular basis to avoid termite treater problems. Offered referral to sludge control operator. Discussed treatment options including metformin versus G [...] Discussed with patient at length diabetes, pathogenesis, termite treater sequela, end organ damage, diet/exercise/weight loss, and [...] feet on a regular basis to avoid penitentiary problems. Offered referral to sludge control operator. Discussed treatment options She is very interested in a G LP or G LP GI P for the weight loss. Discussed risks benefits alternatives side effects and proper use. No history of pancreatitis. She would definitely benefit from cardiovascular protection in addition. Provided names of G LP is and MOdisha to see which 1 her insurance covers. [...] statin Assessment & Plan (10/03/2021 6:04 PM FOOD AND DRUG INSPECTOR): Encouraged patient to follow fat/low chol diet [...] fenofibrate Assessment & Plan (08/27/2020 8:15 AM FOOD AND DRUG INSPECTOR): Encouraged patient to follow fat/low chol diet [...] 11/14/2014 Overview (11/12/2016): HBP Assessment & Plan (10/08/2024 12:29 AM FOOD AND DRUG INSPECTOR): Bp is stable/in acceptable range for any co-morbidities. Encouraged to limit sodium intake and exercise for weight control. Continue Lasix lisinopril and Coreg Assessment & Plan (08/23/2023 9:15 PM FOOD AND DRUG INSPECTOR): Bp is stable/in acceptable range for any co-morbidities. Encouraged to limit sodium intake and exercise for weight control. Continue Lasix lisinopril and Coreg Assessment & Plan (10/12/2022 1:58 PM FOOD AND DRUG INSPECTOR): This is a significant, separately identifiable problem [...] agreement. Assessment & Plan (07/05/2022 5:11 PM FOOD AND DRUG INSPECTOR): Bp is stable/in acceptable range for any [...] workup Assessment & Plan (10/03/2021 6:05 PM FOOD AND DRUG INSPECTOR): Bp is stable/in acceptable range for any co-morbidities. Encouraged to limit sodium intake and exercise for weight control. Continue Coreg lisinopril and Lasix Assessment & Plan (02/23/2021 10:19 AM CDT): Bp is stable/in acceptable range for any co-morbidities. Encouraged to limit sodium intake and exercise for weight control. Continue lasix and lisinopril Assessment & Plan (08/27/2020 8:15 AM FOOD AND DRUG INSPECTOR): Bp is stable/in acceptable range for any [...] regimen/albuterol prn Chronic diastolic congestive heart failure 08/19 Assessment & Plan (10/08/2024 12:30 AM FOOD AND DRUG INSPECTOR): Patient appears compensated. Continue medication regimen. Continue per Cardiology Assessment & Plan (08/23/2023 9:15 PM FOOD AND DRUG INSPECTOR): Managed by Dr. Esteban Continue Lasix 20 b.i.d. potassium Coreg 3.125 b.i.d. lisinopril 10 with aspirin Appears compensated today Assessment & Plan (03/06/2023 11:25 PM CDT): Continue per Dr. Esteban Appears compensated today History of cervical cancer 08/19/2012 Resolved Problems Problem Noted Date Diagnosed Date Resolved Date Positive depression screening 08/22/2023 10/08/2024 Assessment & Plan (08/23/2023 9:17 PM FOOD AND DRUG INSPECTOR): Continue per psychiatrist Right upper quadrant abdominal pain 07/17/2023 10/08/2024 Assessment & Plan (07/17/2023 10:52 PM FOOD AND DRUG INSPECTOR): Abdominal pain and symptoms have fully resolved. Will continue to monitor Colon cancer screening 03/06/202308/23 Benign hypertensive heart [...] 024 Assessment & Plan (07/06/2023 1:15 PM FOOD AND DRUG INSPECTOR): Discussed the patient's BMI. The BMI is [...] 03/04/2023 Assessment & Plan (10/12/2022 1:09 PM FOOD AND DRUG INSPECTOR): Discussed the patient's BMI. The BMI is above average. BMI management plan is completed. BMI Follow-up includes: nutrition counseling, exercise counseling and education provided. BMI 50.0-59.9, adult 10/12/2022 023 Assessment & Plan (10/12/2022 1:10 PM FOOD AND DRUG INSPECTOR): Discussed the patient's BMI. The BMI is above average. BMI management plan is completed. BMI Follow-up includes: nutrition counseling, exercise counseling and education provided. Stage 3a chronic kidney disease (CKD) 07/05/2022 08/23/2023 Assessment & Plan (03/06/2023 11:25 PM CDT): Avoid nephrotoxic drugs including NSAIDs. Monitor labs. Assessment & Plan (10/12/2022 1:51 PM FOOD AND DRUG INSPECTOR): Avoid nephrotoxic drugs including NSAIDs. Monitor labs. Assessment & Plan (07/05/2022 5:13 PM FOOD AND DRUG INSPECTOR): Avoid nephrotoxic drugs including NSAIDs. Monitor labs. [...] 10/12/2022 Assessment & Plan (07/19/2022 11:47 PM FOOD AND DRUG INSPECTOR): Discussed the patient's BMI. The BMI is above average. BMI management plan is completed. BMI Follow-up includes: nutrition counseling, exercise counseling and education provided. Majora is helping with weight loss. Will continue to titrate dose as tolerated. Is also helping with diabetes management. Assessment & Plan (07/05/2022 5:13 PM FOOD AND DRUG INSPECTOR): Discussed the patient's BMI. The BMI is [...] of continued A1c control to minimize the penitentiary effects of diabetes. Bring accuchecks to office when instructed to do so. Check A1c about every 3-6 months. Take medication as prescribed. Get annual eye exam. Encouraged RYDER/Statin if able to tolerate. Encouraged weight control and encouraged diabetic diet and exercise. Continue Mounjaro as A1c is tightly controlled. Assessment & Plan (10/12/2022 1:51 PM FOOD AND DRUG INSPECTOR): Stressed importance of continued A1c control to minimize the termite treater effects of diabetes. Bring accuchecks to office [...] Mounjaro Assessment & Plan (07/05/2022 5:12 PM FOOD AND DRUG INSPECTOR): New diagnosis diabetes. Avoid nephrotoxic drugs including [...] nutrition counseling, exercise counseling and education provided. Colonic diverticular abscess 12/03/2021 10/08/2024 Assessment & Plan (12/03/2021 8:14 PM CDT): [...] for further evaluation and determination of plan. Morbid obesity with BMI of 50.0-59.9, adult 10/16/2021 01/15/2022 Assessment & Plan (12/03/2021 2:51 PM CDT): Obesity is unchanged. Discussed the patient's BMI. The BMI is above average. BMI management plan is completed. BMI Follow-up includes: nutrition counseling, exercise counseling and education provided. Assessment & Plan (10/16/2021 8:33 AM FOOD AND DRUG INSPECTOR): Obesity is unchanged. Discussed the patient's BMI. The BMI is above average. BMI management plan is completed. BMI Follow-up includes: nutrition counseling, exercise counseling and education provided. Acute non-recurrent maxillary sinusitis 10/16/2021 12/03/2021 Assessment & Plan (10/16/2021 2:29 PM FOOD AND DRUG INSPECTOR): Start antibiotic, antihistamine (Claritin OR Zyrtec), Mucinex 12hour and Steroid nasal spray (Flonase). Push fluids. Rest. Supportive care. If sxs worsen or don\'t improve, pt is to followup in the office. Annual physical exam 10/03/2021 025 Assessment & Plan (08/23/2023 9:16 PM FOOD AND DRUG INSPECTOR): Encouraged healthy lifestyle, good nutrition and exercise. Encouraged Calcium and Vitamin D and weight bearing exercise for bone health. Reviewed immunizations Reviewed age appropirate screenings. Assessment & Plan (10/12/2022 1:48 PM FOOD AND DRUG INSPECTOR): Encouraged healthy lifestyle, good nutrition and exercise. Encouraged Calcium and Vitamin D and weight bearing exercise for bone health. Reviewed immunizations Reviewed age appropirate screenings. Assessment & Plan (10/03/2021 6:19 PM FOOD AND DRUG INSPECTOR): Encouraged healthy lifestyle, good nutrition and exercise. Encouraged Calcium and Vitamin D and weight bearing exercise for bone health. Reviewed immunizations Reviewed age appropirate screenings. Leg cramps 10/03/2021 10/08/2024 Assessment & Plan (10/03/2021 6:19 PM FOOD AND DRUG INSPECTOR): This is a significant, separately identifiable problem that was evaluated and managed on the same day as the wellness exam Check labs to rule out electrolyte imbalance. Continue CPAP. Abnormal EKG 10/03/2021 10/08/2024 Assessment & Plan (10/03/2021 6:20 PM FOOD AND DRUG INSPECTOR): This is a significant, separately identifiable problem [...] fatigue is related to underlying cardiology reason. Morbid obesity with BMI of 50.0-59.9, adult 09/04/2021 10/16/2021 Assessment & Plan (09/04/2021 3:35 PM FOOD AND DRUG INSPECTOR): Obesity is unchanged. Discussed the patient's BMI. The BMI is above average. BMI management plan is completed. BMI Follow-up includes: nutrition counseling, exercise counseling and education provided. BMI 50.0-59.9, adult 09/04/2021 022 Assessment & Plan (09/04/2021 3:35 PM FOOD AND DRUG INSPECTOR): Obesity is unchanged. Discussed the patient's BMI. [...] nutrition counseling, exercise counseling and education provided. Breast cancer screening by mammogram 02/24/2021 10/08/2024 Assessment & Plan (08/23/2023 9:16 PM FOOD AND DRUG INSPECTOR): Mammogram order provided Assessment & Plan (03/06/2023 11:26 PM CDT): Mammogram order provided Assessment & Plan (02/24/2021 9:38 AM CDT): Mammogram order provided Fatigue 02/24/2021 10/08/2024 Assessment & Plan (07/17/2023 10:54 PM FOOD AND DRUG INSPECTOR): Probably multifactorial. Check labs and followup to re-evaluate Assessment & Plan (10/12/2022 1:47 PM FOOD AND DRUG INSPECTOR): Probably multifactorial. Check labs and followup to re-evaluate Assessment & Plan (03/08/2022 6:27 PM CDT): Probably multifactorial. Check labs and followup to re-evaluate Assessment & Plan (10/16/2021 2:29 PM FOOD AND DRUG INSPECTOR): Continued fatigue. Awaiting recommendation from Cardiology. Scheduled for November. If she has acute chest pain or acute symptoms she is to immediately go to the ER. She voices understanding and agreement. Assessment & Plan (10/03/2021 6:05 PM FOOD AND DRUG INSPECTOR): Probably multifactorial. Check labs and followup to re-evaluate Assessment & Plan (02/24/2021 9:38 AM CDT): Probably multifactorial. Check labs and followup to re-evaluate Medicare annual wellness visit, subsequent 02/23/2021 10/11/2022 [...] has increased difficulty breathing. Await CXR results Fever 02/02/2021 10/08/2024 Assessment & Plan (02/02/2021 10:21 AM CDT): Check COVID and Strep thru [facility] in [place]. Start antihistamine (Claritin OR Zyrtec), Mucinex 12hour and Steroid nasal spray (Flonase). Push fluids. Rest. Supportive care. If sxs worsen or don\'t improve, pt is to followup in the office. Will start antibiotic as fever with chills but advised may be viral and antibiotic won't help. Monitor for dehydration due to vomiting/diarrhea. BMI 50.0-59.9, adult 08/27/2020 021 Assessment & Plan (01/29/2021 1:21 PM CDT): Obesity is unchanged. Discussed the patient's BMI. The BMI is above average. BMI management plan is completed. BMI Follow-up includes: nutrition counseling, exercise counseling and education provided. Assessment & Plan (08/27/2020 7:32 AM FOOD AND DRUG INSPECTOR): Obesity is unchanged. Discussed the patient's BMI. The BMI is above average. BMI management plan is completed. BMI Follow-up includes: nutrition counseling, exercise counseling and education provided. Obesity (BMI 30-39.9) 08/27/20202020 Assessment & Plan (08/27/2020 7:32 AM FOOD AND DRUG INSPECTOR): Obesity is unchanged. Discussed the patient's BMI. The BMI is above average. BMI management plan is completed. BMI Follow-up includes: nutrition counseling, exercise counseling and education provided.\\ Encounter for screening mamm ogram for malignant neoplasm of breast 02/21/2020 02/23/2021 Assessment & Plan (08/27/2020 8:16 AM FOOD AND DRUG INSPECTOR): Has order to complete Assessment & Plan (05/25/2020 10:27 AM CDT): Mammogram order provided Assessment & Plan (04/07/2020 8:08 PM CDT): Encouraged healthy lifestyle, good nutrition and exercise. Encouraged Calcium and Vitamin D and weight bearing exercise for bone health. Reviewed immunizations. Reviewed age appropirate screenings. Medicare Wellness Documentation is completed within the chart Cough 08/08/2019 10/08/2024 Assessment & Plan (08/08/2019 12:59 PM FOOD AND DRUG INSPECTOR): Persistent after 10 days of Augmentin. Obtain CXR---It was negative for acute Cardiopulm disease. Start Prednisone 60 mg x 5 days levaquin cheratussin Pt notified of CXR results and plan after results were obtained. Flu-like symptoms 07/27/2019 02/21/2020 Assessment & Plan (08/08/2019 12:59 PM FOOD AND DRUG INSPECTOR): Negative flu again Assessment & Plan (07/27/2019 10:35 PM FOOD AND DRUG INSPECTOR): Negative flu screening. Sxs have been persistent so concern may be progressing from viral to bacterial. Will cover with antibotic/complete the Augmentin course. Start antibiotic, antihistamine, Mucinex and Steroid nasal spray. Push fluids. Rest. Supportive care. If sxs worsen or don\'t improve, pt is to followup in the office. Annual physical exam 05/26/2019 021 Assessment & Plan (08/27/2020 8:15 AM FOOD AND DRUG INSPECTOR): Encouraged healthy lifestyle, good nutrition and exercise. [...] 02/24/2021 Assessment & Plan (08/27/2020 8:15 AM FOOD AND DRUG INSPECTOR): Probably multifactorial. Check labs and followup to [...] diabetes. Assessment & Plan (10/03/2021 6:05 PM FOOD AND DRUG INSPECTOR): Pre-diabetes/hyperglycemia is a precursor to Dm. Stressed [...] diabetes. Assessment & Plan (08/27/2020 8:15 AM FOOD AND DRUG INSPECTOR): Pre-diabetes is a precursor to Dm. Stressed [...] provided. Assessment & Plan (08/08/2019 8:31 AM FOOD AND DRUG INSPECTOR): Obesity is unchanged. Discussed the patient's BMI. [...] provided. Assessment & Plan (08/27/2020 7:42 AM FOOD AND DRUG INSPECTOR): Obesity is unchanged. Discussed the patient's BMI. [...] provided. Assessment & Plan (08/08/2019 8:31 AM FOOD AND DRUG INSPECTOR): Obesity is unchanged. Discussed the patient's BMI. The BMI is above average. BMI management plan is completed. BMI Follow-up includes: nutrition counseling, exercise counseling and education provided. Assessment & Plan (05/26/2019 11:02 PM CDT): Obesity is unchanged. Discussed the patient's BMI. The BMI is above average. BMI management plan is completed. BMI Follow-up includes: nutrition counseling, exercise counseling and education provided. LIMA on CPAP 11/14/2014 10/08/2024 Overview (11/12/2016): Sleep apnea Assessment & Plan (08/23/2023 9:16 PM FOOD AND DRUG INSPECTOR): Patient has not been using her CPAP. Reviewed the long-term sequela of untreated or undertreated sleep apnea not limited to dementia heart rhythm issues like AFib pulmonary hypertension etc.. Patient has all the needed supplies and just needs to reset it up in her new location Assessment & Plan (10/12/2022 1:46 PM FOOD AND DRUG INSPECTOR): Has CPAP at home. Continue to use nightly as instructed. Continue to follow with Dr. Euceda Assessment & Plan (10/03/2021 6:04 PM FOOD AND DRUG INSPECTOR): Continue CPAP. Has all needed supplies. Assessment & Plan (08/27/2020 7:43 AM FOOD AND DRUG INSPECTOR): Has needed supplies. Using nightly Assessment & Plan (05/25/2020 10:25 AM CDT): Continue CPAP Assessment & Plan (02/21/2020 11:47 AM CDT): Using CPAP Anxiety 11/14/2014 02/21/2020 Overview (11/12/2016): Anxiety Assessment [...] of bone 11/14/201408/09 Overview (11/12/2016): Closed fracture Dizziness 08/19/2012 10/08/2024 Encounters Date Type Department Care Team Description 06/25/2025 11:00 AM FOOD AND DRUG INSPECTOR Office Visit [facility] Family Medicine [address] [address] Madonna Salamanca PA Type 2 diabetes mellitus with hyperlipidemia (HCC) (Primary Dx); BMI 40.0-44.9, adult (HCC); Morbid obesity (HCC); Chronic left shoulder pain; LIMA (obstructive sleep apnea); Hypertension associated with diabetes (HCC); Restless legs; Breast cancer screening by mammogram; Abnormal finding of blood chemistry, unspecified; Other specified diabetes mellitus without complications 06/21/2025 Orders Only [address] [place] [phone] ProviderElisa MD 06/13/[address] [place] [address] Madonna Salamanca PA 04/14/2025 Results Follow-Up [address] [place] [address] Madonna Salamanca PA MMR (IGG) PANEL (MEASLES, MUMPS, RUBELLA) from Last 3 Months Immunizations Immunization Administration Dates Next Due Hep A / Hep B 01/10/2024 Influenza, Quadrivalent, Spl it, Intramuscular 05/28/2020 Influenza, Quadrivalent, Spl it, Preservative Free, Intramuscular 05/23/2023,05/11/2022,06/04/2021,05/23,05/25/2019,07/07/2018,04/27/2017 Influenza, Trivalent, High D ose, Split, Preservative Free, Intramuscular 05/02/2025,05/12/2024 Influenza, Trivalent, IM (MDV) 05/11/2017,2014 Influenza, Unspecified 05/10/2023,2022(Deferred: Patient Refused) Influenza, Whole 05/10/2023 Pfizer SARS-CoV-2 Monovalent Vaccination (12+ Yrs) PURPLE 11/11/2020,10/21/2020 Pneumococcal Conjugate Pcv20 11/19/2021 Pneumococcal Polysaccharide PPV23 12/07/2016 RSV Vaccine, Pref, Recombina nt, Subunit, Adjuvanted, PF, IM (Arexvy) 05/23/2023 Tdap 02/23/2024,12/07/2016 ZOSTER Recombinant 05/12/2024,01/10/2024 Surgical History Surgery Date Site/Laterality Comments APPENDECTOMY [...] Hypertension Hx Other Medical obesity; Commen ts: [facility] 09/11/2014 - Depression Depression Anxiety disorder Anxiety Hx Other Medical diastolic CHF; Comments: [facility] 09/11/2014 - Hx Other Medical LIMA; Comments: [facility] 09/11/2014 - Hx Other Medical Hx cervical can cer; Comments: [facility] 09/11/2014 - Hx Other Medical hx bacterial me ningitis; Comments: [facility] 09/11/2014 - Allergic rhinitis Cancer (HCC) Heart disease HL (hearing loss) Type 2 diabetes mellitus Family History Medical History Relation Name Comments [...] drink = 0.6 oz pur e alcohol) PHQ-2 Answer Date Recorded PHQ-2 Total Score (If total score is 3 or more points, staff should administer the PHQ-9) 0 06/25/2025 PHQ-9 Answer Date Recorded PHQ-9 Total Score 12 09/25/2024 AUDIT-C Answer Date Recorded Q1: How often do you have a drink containing alc ohol? Monthly or less 06/25/2025 Q2: How many drinks containi ng alcohol do you have on a typical day when you are drinking? 1 or 2 06/25/2025 Q3: How often do you have si x or more drinks on one occasion? Never 06/25/2025 Comments Unknown Sex and Gender Information Value Date Recorded Sex Assigned at Not on file Legal Sex Female 3:10 AM FOOD AND DRUG INSPECTOR Gender Identity Not on file Sexual Orientation Not on file Last Filed Vital Signs Vital Sign Reading Time Taken Comments Blood Pressure 126/72 06/25/2025 10:59 AM FOOD AND DRUG INSPECTOR Pulse 73 06/25/2025 10:59 AM FOOD AND DRUG INSPECTOR Temperature 36.9 C (98.4 F) 06/25/2025 10:59 AM FOOD AND DRUG INSPECTOR Respiratory Rate 16 10/25/2024 10:17 AM CDT Oxygen Saturation 96% 06/25/2025 10:59 AM FOOD AND DRUG INSPECTOR Inhaled Oxygen Concentration - - Weight 107.5 kg (237 lb) 06/25/2025 10:59 AM FOOD AND DRUG INSPECTOR Height 157.5 cm (5' 2) 06/25/2025 10:59 AM FOOD AND DRUG INSPECTOR Body Mass Index 43.35 06/25/2025 10:59 AM FOOD AND DRUG INSPECTOR Plan of Treatment Health Maintenance Due Date Last Done Comments Hepatitis C Screening 1960 Foot Exam 1960 Albumin Creatinine Ratio, Urine 08/30/2025 08/30/2024, 08/30/2024, 08/12/2023, Additional history exists Well Visit 65+ 09/25/2025 09/25/2024, 03/2024, 03/04/2023, Additional history exists Breast Cancer Screening-Mammogram 09/29/2025 09/29/2024, 08/27/2021, 07/18/2019, Additional history exists Covid-19 Vaccine (2 6 season) 2025 05/02/2025, 05/23/2023, 08/03/2022, Additional history exists Lipid Panel 12/21/2025 12/21/2024, 11/2023, 02/22/2023, Additional history exists Hemoglobin A1C 12/28/2025 06/30/2025, 06/09, 09/01/2024, Additional history exists Colon Cancer Screening-DNA Stool 03/16/2026 03/16/20 23, 02/24/2020 Dilated Eye Exam 04/13/2026 04/13/2025 Depression Screening 06/25/2026 06/25/2025, 12/21/2024, 09/25/2024, Additional history exists Fall Risk Assessment 06/25/2026 06/25/2025, 12/21/2024, 09/25/2024, Additional history exists eGFR 06/30/2026 06/30/2025, 08/10, 08/12/2023, Additional history exists Osteoporosis Screening-Bone Density Scan 09/29/2026 09/29/2024, 09/29/2024, 08/31/2024 DTaP/Tdap/Td Vaccine (3 - Td or Tdap) 02/22/2034 02/23/2024, 12/07/2016 Pneumococcal vaccine 65+ Completed 11/19/2021, 08/2016 Hepatitis B Screening Completed 01/10/2024 Zoster Vaccine Completed 05/12/2024, 01/10/2024 Influenza Vaccine Completed 05/02/2025, , 05/23/2023, Additional history exists Procedures Procedure Name Priority Date/Time Associated Diagnosis Comments IRON PROFILE W/ IBC Routine 06/30/2025 1 1:31 AM FOOD AND DRUG INSPECTOR Restless legs Other specified diabetes mellitus without complications FERRITIN Routine 06/30/2025 11:31 AM FOOD AND DRUG INSPECTOR Restless legs Abnormal finding of blood chemistry, unspecified VITAMIN B12 Routine 06/30/2025 11:30 AM FOOD AND DRUG INSPECTOR Hypertension associated with diabetes (HCC) HEMOGLOBIN A1C Routine 06/30/2025 11:30 AM FOOD AND DRUG INSPECTOR Hypertension associated with diabetes (HCC) TSH Routine 06/30/2025 11:30 AM FOOD AND DRUG INSPECTOR Hypertension associated with diabetes (HCC) MAGNESIUM Routine 06/30/2025 11:30 AM FOOD AND DRUG INSPECTOR Hypertension associated with diabetes (HCC) COMPREHENSIVE METABOLIC PANEL Routine 06/30/2025 11:30 AM FOOD AND DRUG INSPECTOR Hypertension associated with diabetes (HCC) CBC WITH AUTO DIFFERENTIAL Routine 06/30/2025 11:30 AM FOOD AND DRUG INSPECTOR Hypertension associated with diabetes (HCC) POCT HEMOGLOBIN A1C Routine 06/25/2025 1 0:00 AM FOOD AND DRUG INSPECTOR Type 2 diabetes mellitus with hyperlipidemia (HCC) HM DIABETES EYE EXAM Routine 04/13/2025 3:15 PM CDT MMR (IGG) PANEL (MEASLES, MUMPS, RUBELLA) Routine 04/12/2025 10:04 AM CDT Immunity status testing POCT LIPID PANEL Routine 12/21/2024 7:30 AM CDT Type 2 diabetes mellitus with hyperlipidemia (HCC) HM DEXA SCAN Routine 09/29/2024 9:56 AM FOOD AND DRUG INSPECTOR HM MAMMOGRAPHY Routine 09/29/2024 9:42 AM FOOD AND DRUG INSPECTOR HM ALBUMIN CREATININE RATIO, URINE Routine 08/30/2024 10:09 AM FOOD AND DRUG INSPECTOR STOOL DNA COLOGUARD Routine 03/16/2023 11:00 AM CDT Colon cancer screening from Last 3 Months or Most Recently Relevant to Health Maintenance Results * (ABNORMAL) Iron profile w/ IBC (06/30/2025 11:31 AM FOOD AND DRUG INSPECTOR) Pathologist [facility] Iron 61 45 - 160 mcg/dL [facility] TIBC 472(H) 250 - 450 mcg/dL (calc) [facility] Iron saturation 13(L) 16 - 45 % (calc) [facility] Blood 06/30/2025 11:3 1 AM FOOD AND DRUG INSPECTOR 06/30/2025 11:32 AM FOOD AND DRUG INSPECTOR Narrative [facility] - 07/01/2025 7:53 AM FOOD AND DRUG INSPECTOR FASTING:UNKNOWN FASTING: UNKNOWN us Madonna CLAYTON LAB BLOOD ORDERABLES Final Result [facility] [address] [place] [address] * Ferritin (06/30/2025 11:31 AM FOOD AND DRUG INSPECTOR) [facility] Ferritin 34 16 - 288 ng/mL [facility] Blood 06/30/2025 11:3 1 AM FOOD AND DRUG INSPECTOR 06/30/2025 11:32 AM FOOD AND DRUG INSPECTOR Narrative [facility] - 07/01/2025 7:53 AM FOOD AND DRUG INSPECTOR FASTING:UNKNOWN FASTING: UNKNOWN us Madonna CLAYTON LAB BLOOD ORDERABLES Final Result [facility] [address] [address] * (ABNORMAL) CBC with auto differential (06/30/2025 11:30 AM FOOD AND DRUG INSPECTOR) Pathologist [facility] WBC 6.9 3.8 - 10.8 Thousand/u L [facility] RBC, POC 4.82 3.80 - 5.10 Million/uL [facility] Hgb 13.5 11.7 - 15.5 g/dL [facility] Hct 43.2 35.0 - 45.0 % [facility] MCV 89.6 80.0 - 100.0 fL [facility] MCH 28.0 27.0 - 33.0 pg [facility] MCHC 31.3(L) 32.0 - 36.0 g/dL [facility] Comment: For adults, a slight decrease in the calculated MCHC value (in the range of 30 to 32 g/dL) is most likely not clinically significant; however, it should be interpreted with caution in correlation with other red cell parameters and the patient's clinical condition. Rdw 13.8 11.0 - 15.0 % [facility] Platelets 393 140 - 400 Thousand/u L [facility] MPV 10.8 7.5 - 12.5 fL [facility] Neutrophils, abs 4,043 1,500 - 7,800 cells/uL [facility] Lymphocytes, abs 1,932 850 - 3,900 cells/uL [facility] Monocyte abs 607 200 - 950 cells/uL [facility] Eosinophils, abs 228 15 - 500 cells/uL [facility] Basophils, abs 90 0 - 200 cells/uL [facility] Neutrophils 58.6 % [facility] Lymphocyte pct 28.0 % [facility] Monocytes 8.8 % [facility] Eosinophils 3.3 % [facility] Basophils 1.3 % [facility] Blood 06/30/2025 11:3 0 AM FOOD AND DRUG INSPECTOR 06/30/2025 11:32 AM FOOD AND DRUG INSPECTOR Narrative [facility] - 07/01/2025 1:59 PM FOOD AND DRUG INSPECTOR FASTING:UNKNOWN FASTING: UNKNOWN Madonna CLAYTON LAB BLOOD ORDERABLES Final Result Performing Organization Address [facility] de Phone Number [facility] [address] [place] [address] * TSH (06/30/2025 11:30 AM FOOD AND DRUG INSPECTOR) TSH 0.85 0.40 - 4.50 mIU/L [facility] Blood 06/30/2025 11:3 0 AM FOOD AND DRUG INSPECTOR 06/30/2025 11:32 AM FOOD AND DRUG INSPECTOR Narrative [facility] - 07/01/2025 1:59 PM FOOD AND DRUG INSPECTOR FASTING:UNKNOWN FASTING: UNKNOWN Madonna CLAYTON LAB BLOOD ORDERABLES Final Result Performing Organization Address [facility] de Phone Number [facility] [address] [place] [address] * Magnesium (06/30/2025 11:30 AM FOOD AND DRUG INSPECTOR) Magnesium 2.1 1.5 - 2.5 mg/dL [facility] Blood 06/30/2025 11:3 0 AM FOOD AND DRUG INSPECTOR 06/30/2025 11:32 AM FOOD AND DRUG INSPECTOR Narrative [facility] - 07/01/2025 1:59 PM FOOD AND DRUG INSPECTOR FASTING:UNKNOWN FASTING: UNKNOWN Madonna CLAYTON LAB BLOOD ORDERABLES Final Result Performing Organization Address [facility]/ZIP Co de Phone Number [facility] [address] [facility] [place] [address] * Hemoglobin A1c (06/30/2025 11:30 AM FOOD AND DRUG INSPECTOR) Hgb A1C 5.4 <5.7 % of total Hgb [facility] Comment: For the purpose of screening for the presence of diabetes: <5.7% Consistent with the absence of diabetes 5.7-6.4% Consistent with increased risk for diabetes (prediabetes) > or =6.5% Consistent with diabetes This assay result is consistent with a decreased risk of diabetes. Currently, no consensus exists regarding use of hemoglobin A1c for diagnosis of diabetes in children. According to [place] Diabetes Association (ADA) guidelines, hemoglobin A1c <7.0% represents optimal control in non- diabetic patients. Different metrics may apply to specific patient populations. Standards of Medical Care in Diabetes(ADA). Blood 06/30/2025 11:3 0 AM FOOD AND DRUG INSPECTOR 06/30/2025 11:32 AM FOOD AND DRUG INSPECTOR Narrative [facility] - 07/01/2025 1:59 PM FOOD AND DRUG INSPECTOR FASTING:UNKNOWN FASTING: UNKNOWN Madonna CLAYTON LAB BLOOD ORDERABLES Final Result Performing Organization Address [facility] Co de Phone Number [facility] [address] [place] [address] * Vitamin B12 (06/30/2025 11:30 AM FOOD AND DRUG INSPECTOR) Pathologist [facility] Vitamin B12 434 200 - 1,100 pg/mL [facility] Blood 06/30/2025 11:3 0 AM FOOD AND DRUG INSPECTOR 06/30/2025 11:32 AM FOOD AND DRUG INSPECTOR Narrative [facility] - 07/01/2025 1:59 PM FOOD AND DRUG INSPECTOR FASTING:UNKNOWN FASTING: UNKNOWN Madonna CLAYTON LAB BLOOD ORDERABLES Final Result Performing Organization Address [facility]/ZIP Co de Phone Number [facility] [address] [address] * (ABNORMAL) Comprehensive metabolic panel (06/30/2025 11:30 AM FOOD AND DRUG INSPECTOR) [facility] Glucose 92 65 - 99 mg/dL [facility] Comment: Fasting reference interval BUN 24 7 - 25 mg/dL [facility] Creatinine 1.19(H) 0.50 - 1.05 mg/dL [facility] eGFR 50(L) > OR = 60 mL/min/1.7 3m2 [facility] BUN/creat ratio 20 6 - 22 (calc) [facility] Sodium 141 135 - 146 mmol/L [facility] Potassium, pl 5.0 3.5 - 5.3 mmol/L [facility] Chloride 104 98 - 110 mmol/L [facility] CO2 28 20 - 32 mmol/L [facility] Calcium 10.2 8.6 - 10.4 mg/dL [facility] Protein, sr 6.8 6.1 - 8.1 g/dL [facility] Albumin 4.4 3.6 - 5.1 g/dL [facility] GLOBULIN 2.4 1.9 - 3.7 g/dL (calc) [facility] Alb/glob ratio 1.8 1.0 - 2.5 (calc) [facility] Bilirubin, total 0.4 0.2 - 1.2 mg/dL [facility] Alk phos 37 37 - 153 U/L [facility] AST 21 10 - 35 U/L [facility] ALT (SGPT) 15 6 - 29 U/L [facility] Blood 06/30/2025 11:3 0 AM FOOD AND DRUG INSPECTOR 06/30/2025 11:32 AM FOOD AND DRUG INSPECTOR Narrative [facility] - 07/01/2025 1:59 PM FOOD AND DRUG INSPECTOR FASTING:UNKNOWN FASTING: UNKNOWN us Madonna CLAYTON LAB BLOOD ORDERABLES Final Result [facility] [address] [address] * POCT hemoglobin A1c (06/25/2025 10:00 AM FOOD AND DRUG INSPECTOR) Hemoglobin A1C, POC 5.5 4.0 - 5.6 % Capillary blood 06/25/2025 1 0:00 AM FOOD AND DRUG INSPECTOR Madonna CLAYTON POINT OF CARE TEST ORDERAB LES Final Result * DIABETES EYE EXAM (04/13/2025 3:15 PM CDT) SCRIBED DIABETIC DILATED EYE EXAM Normal Impressions Tarah Corbin, MICHAEL - 04/13/2025 3:15 PM CDT No diabetic retinopathy detected Historical Provider HEALTH MAINTENANCE Edited Result - Final * MMR (IGG) PANEL (MEASLES, MUMPS, RUBELLA) (04/12/2025 10:04 AM CDT) Measles (Rubeola) IgG 233.00 AU/mL [facility] Comment: AU/mL Interpretation ----- <13.50 Not consistent with immunity 13.50-16.49 Equivocal >16.49 Consistent with immunity The presence of measles IgG suggests immunization or past or current infection with measles virus. For additional information, please refer to http://education.[employer] [place]/faq/AKX355 (This link is being provided for informational/ educational purposes only.) Mumps IgG 117.00 AU/mL [facility] Comment: AU/mL Interpretation ------- <9.00 Not consistent with immunity 9.00-10.99 Equivocal >10.99 Consistent with immunity The presence of mumps IgG antibody suggests immunization or past or current infection with mumps virus. Rubella IgG 2.89 Index [facility] Comment: Index Interpretation ----- <0.90 Not consistent with immunity 0.90-0.99 Equivocal > or = 1.00 Consistent with immunity The presence of rubella IgG antibody suggests immunization or past or current infection with rubella virus. Blood 04/12/2025 10:0 4 AM CDT 04/12/2025 10:05 AM CDT Result [facility] Madonna CLAYTON LAB BLOOD ORDERABLES Final Result Performing Organization Address City/[facility]/ZIP Co de Phone Number [facility] [address] [facility] [address] [place] [address] * POCT lipid panel (12/21/2024 7:30 AM CDT) Cholesterol, POC 114 <200 MG/DL HDL, POC 58 >=40 mg/dL Triglycerides, POC 72 <=149 mg/dL LDL Cholesterol POC 42 <=129 mg/dL Chol/HDL Ratio, POC 2.0 NONE Non-HDL Cholesterol, POC 56 NONE mg/dL Cholesterol Total, POC 114 30 - 199 mg/dL Capillary blood 12/21/2024 7 :30 AM CDT Result [facility] Madonna CLAYTON POINT OF CARE TEST ORDERAB LES Final Result * HM DEXA SCAN (09/29/2024 9:56 AM FOOD AND DRUG INSPECTOR) Result [facility] Historical Provider HEALTH MAINTENANCE Final Result * HM MAMMOGRAPHY (09/29/2024 9:42 AM FOOD AND DRUG INSPECTOR) Impressions Tarah Corbin MA - 09/29/2024 9:42 AM FOOD AND DRUG INSPECTOR BI-RADS TWO Benign Historical Provider HEALTH MAINTENANCE Edited Result - Final * HM ALBUMIN CREATININE RATIO, URINE (08/30/2024 10:09 AM FOOD AND DRUG INSPECTOR) SCRIBED HM ALBUMIN CREATININE RATIO, URINE <0.30 [facility] Historical Provider HEALTH MAINTENANCE Edited Result - Final [facility] * Stool DNA - Cologuard (03/16/2023 11:00 AM CDT) Pathologist [facility] Stool DNA - Cologuard Negative Negative [facility] ??? (CLIA #:[id number]) Comment: NEGATIVE TEST RESULT. A negative Cologuard [...] screened with both Cologuard and colonoscopy. (Sylvie Francis et al, N Engl J Med 2014;370(14):5332-3849) The normal value (reference range) for this assay is negative. COLOGUARD RE-SCREENING RECOMMENDATION: Periodic colorectal cancer screening is an important part of preventive healthcare for asymptomatic individuals at average risk for colorectal cancer. Following a negative Cologuard result, the [place] [employer] and U.S. Multi-Society Task Force screening guidelines recommend a Cologuard re-screening interval of 3 years. References: [place] [employer] Guideline for Colorectal Cancer Screening: https://www.cancer.org/cancer/rwakj-bjeenc-yhqkhr/fqbnbwxqs-xmdcuvura-gajtlnk/ac s-rec ommendations.html.; Fredis DK, Nahomi CR, Theresa GonzalesK, Colorectal Cancer Screening: Recommendations for Physicians and Patients from the U.S. Multi-Society Task Force on Colorectal Cancer Screening , Am J Gastroenterology 2017; 112:6224-9317. TEST DESCRIPTION: Composite algorithmic analysis of stool [...] (Sylvie Glover al, N Engl J Med 2014;370(14):8330-3444.) Cologuard may produce a false negative or false positive result (no colorectal cancer or precancerous polyp present at colonoscopy follow up). A negative Cologuard test result does not guarantee the absence of CRC or advanced adenoma (pre-cancer). The current Cologuard screening interval is every 3 years. ([place] [employer] and U.S. Multi-Society Task Force). Cologuard performance data in a 10,000 patient pivotal study using colonoscopy as the reference method can be accessed at the following location: www.[employer]/results. Additional description of the Cologuard test process, warnings and precautions can be found at www.[employer].com. Stool 03/16/2023 11:0 0 AM CDT 03/19/2023 5:56 PM CDT [facility] FLUIDS AND STOOLS ORDERABLES Final Result [facility] (CLIA #:[id number]) [address] 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
--- OUTSIDE RECORDS SUMMARY | 2025-07-08 16:56 | XMS_ITS | Encounter Summary ---
Author Organization [facility] Facility Care Team Providers Care Stock Preparation Operator Name Role Phone Madonna Salamanca Primary Care Provider [phone]- [phone] Madonna Salamanca Primary Care Provider [phone]- [phone] Encounter Details Date Type Department Care Team (Latest Contact Info) Description 01/20/2017 Orders Only [facility]INCON[facility] ProviderElisa MD [address] [place] [id number] Social History Tobacco Use Types Packs/Day Years Used Date Smoking Tobacco: Never Alcohol Use Standard Drinks/Week Comments Yes 0 (1 standard drink = 0.6 oz pur e alcohol) Comments Unknown Sex and Gender Information Value Date Recorded Sex Assigned at Not on file 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
--- OUTSIDE RECORDS SUMMARY | 2025-07-08 16:56 | XMS_ITS | Clinical Summary ---
Author Organization [facility] Address [address] [place] [address] Care Team Providers Care Senior Health Physics Technician Name Role Phone Madonna Salamanca Primary Care Provider [phone] Allergies Active Allergy Reactions Criticality Noted Date [...] 10/08/2024 Assessment & Plan (10/08/2024 12:32 AM CLAIMS ANALYST): Patient has LIMA. She states her CPAP is not working. She is unsure if she is still snoring Recommend a referral back to sleeps to re-evaluate and determine if treatment is still required. Referral placed to Dr. Kinsey ESTRLELA pain 10/08/2024 Assessment & Plan (10/08/2024 12:32 AM CLAIMS ANALYST): This is a significant, separately identifiable problem [...] 08/23/2023 Assessment & Plan (10/08/2024 12:30 AM CLAIMS ANALYST): Managed by cardiology. Continue to tightly control hypertension. Currently she appears compensated. Continue aspirin Lasix potassium Coreg and lisinopril Assessment & Plan (08/23/2023 9:15 PM CLAIMS ANALYST): Managed by Dr. Esteban Continue Lasix 20 b.i.d. potassium Coreg 3.125 b.i.d. lisinopril 10 with aspirin BMI 40.0-44.9, adult 08/22/2023 Assessment & Plan (06/25/2025 11:02 AM CLAIMS ANALYST): Discussed the patient's BMI. The BMI is above average. BMI management plan is completed. BMI Follow-up includes: nutrition counseling, exercise counseling and education provided. Assessment & Plan (12/21/2024 7:35 AM CDT): Discussed the patient's BMI. The BMI is above average. BMI management plan is completed. BMI Follow-up includes: nutrition counseling, exercise counseling and education provided. Assessment & Plan (10/08/2024 12:30 AM CLAIMS ANALYST): Discussed the patient's BMI. The BMI is above average. BMI management plan is completed. BMI Follow-up includes: nutrition counseling, exercise counseling and education provided. Assessment & Plan (08/23/2023 9:17 PM CLAIMS ANALYST): Discussed the patient's BMI. The BMI is above average. BMI management plan is completed. BMI Follow-up includes: nutrition counseling, exercise counseling and education provided. Elevated platelet count 08/22/2023 Assessment & Plan (08/23/2023 9:18 PM CLAIMS ANALYST): Four years ago the level was just above 500. Will recheck again if remains above 500 will need to see Hematology for further evaluation she is already on an aspirin Medicare annual wellness visit, subsequent 03/06 Assessment & Plan (10/08/2024 12:30 AM CLAIMS ANALYST): Encouraged healthy lifestyle, good nutrition and exercise. [...] 03/04/2023 Assessment & Plan (06/25/2025 11:02 AM CLAIMS ANALYST): Discussed the patient's BMI. The BMI is above average. BMI management plan is completed. BMI Follow-up includes: nutrition counseling, exercise counseling and education provided. Assessment & Plan (12/21/2024 7:36 AM CDT): Discussed the patient's BMI. The BMI is above average. BMI management plan is completed. BMI Follow-up includes: nutrition counseling, exercise counseling and education provided. Assessment & Plan (10/08/2024 12:30 AM CLAIMS ANALYST): Discussed the patient's BMI. The BMI is above average. BMI management plan is completed. BMI Follow-up includes: nutrition counseling, exercise counseling and education provided. Assessment & Plan (08/23/2023 9:17 PM CLAIMS ANALYST): Discussed the patient's BMI. The BMI is above average. BMI management plan is completed. BMI Follow-up includes: nutrition counseling, exercise counseling and education provided. Assessment & Plan (07/06/2023 1:15 PM CLAIMS ANALYST): Discussed the patient's BMI. The BMI is [...] [facility] and stat results were obtained IMPRESSION: 1. [...] 12/03/2021 Assessment & Plan (10/08/2024 12:31 AM CLAIMS ANALYST): This is a significant, separately identifiable problem [...] 02/21/2020 Assessment & Plan (10/08/2024 12:29 AM CLAIMS ANALYST): Depression symptoms are stable. She is seeing Dr. Amato her psychiatrist. Currently on Cymbalta and Inderal 10 mg b.i.d. for the anxiety Assessment & Plan (08/23/2023 9:16 PM CLAIMS ANALYST): Patient follows closely with Dr. Walker her psychiatrist. She is currently on Cymbalta 60 b.i.d. modafinil and Viibryd Assessment & Plan (03/06/2023 11:25 PM CDT): Managed by Dr. Rivera Assessment & Plan (10/12/2022 1:47 PM CLAIMS ANALYST): Continue per Dr. Amato. He is managing her medications which include Cymbalta 60 modafinil and Seroquel Assessment & Plan (07/19/2022 11:47 PM CLAIMS ANALYST): Continue duloxetine 90 mg daily. Doing well with current dose. Currently using Seroquel to sleep. Psychiatry is helping manage. Assessment & Plan (07/05/2022 5:12 PM CLAIMS ANALYST): Continue per Psychiatry. Assessment & Plan (03/08/2022 6:27 PM CDT): Continue with BuSpar and Cymbalta Assessment & Plan (12/03/2021 8:11 PM CDT): Stable with Wellbutrin and Cymbalta Assessment & Plan (10/16/2021 2:29 PM CLAIMS ANALYST): Continue per psychiatrist. She is grieving appropriately and has the support around her that she needs. Assessment & Plan (10/03/2021 6:05 PM CLAIMS ANALYST): Continue per psychiatrist. She is happy with her current regimen Assessment & Plan (02/23/2021 10:20 AM CDT): Continue per psychiatry Assessment & Plan (08/27/2020 8:17 AM CLAIMS ANALYST): Continue cymbabdullahi, buspar and abilify. Encouraged f.u [...] 02/21/2020 Assessment & Plan (10/08/2024 12:29 AM CLAIMS ANALYST): Depression symptoms are stable. She is seeing Dr. Amato her psychiatrist. Currently on Cymbalta and Inderal 10 mg b.i.d. for the anxiety Assessment & Plan (07/17/2023 10:52 PM CLAIMS ANALYST): Continue with psychiatrist Dr. Rivera Assessment & Plan (04/04/2022 6:48 PM CDT): Patient continues to have anxiety and depression symptoms. She still and BuSpar and Cymbalta and Wellbutrin. [place] like she had been doing well until this creeped up this week regarding family moving into the home and taking belongings. Encouraged to monitor blood pressure closely and call with readings. If her symptoms get worse she is to call for further evaluation. Assessment & Plan (12/03/2021 8:11 PM CDT): Stable with Wellbutrin and Cymbalta Assessment & Plan (10/03/2021 6:05 PM CLAIMS ANALYST): Anxiety is stable with her current regimen. Continue per psychiatrist Assessment & Plan (02/23/2021 10:20 AM CDT): Continue per psychiatry Assessment & Plan (08/27/2020 8:17 AM CLAIMS ANALYST): See depression Assessment & Plan (05/25/2020 10:27 AM CDT): See depression Assessment & Plan (04/07/2020 8:09 PM CDT): See depresssion Assessment & Plan (04/06/2020 1:00 PM CDT): See depression Nail abnormality 05/26/2019 Assessment & Plan (05/26/2019 11:08 PM CDT): This is a significant, separately identifiable problem that was evaluated and managed on the same day as the wellness exam Refer to retail assistant store manager to further evaluate this black area. Tremor 02/02/2019 Assessment & Plan (02/05/2019 4:06 PM CDT): Pt is concerned and would like to see a specialist. Will refer to neurologist. CASTANEDA (dyspnea on exertion) 01/28/2019 Assessment & Plan (10/12/2022 1:47 PM CLAIMS ANALYST): Dyspnea on exertion has improved with the [...] etc. She plans to to to [facility]. Her son is here to take her so she doesn't have to drive. Seasonal allergies 03/31/2018 Gastroesophageal reflux disease without esophagi tis 12/24/2016 Assessment & Plan (10/12/2022 1:49 PM CLAIMS ANALYST): Currently stable without medication. Continue with weight [...] Hyperlipidaemia Assessment & Plan (10/08/2024 12:34 AM CLAIMS ANALYST): Encouraged patient to follow low fat/low chol diet like the Mediterranean diet. Increase good fats in the diet. Increase exercise. Monitor labs as needed. Continue Crestor and fenofibrate Stressed importance of continued A1c control to minimize the mcfp effects of diabetes. Bring accuchecks to office when instructed to do so. Check A1c about every 3-6 months. Take medication as prescribed. Get annual eye exam. Encouraged RYDER/Statin if able to tolerate. Encouraged weight control and encouraged diabetic diet and exercise. Last A1c is 5.1 in August. Continue the Mounjaro 15 Assessment & Plan (08/23/2023 9:15 PM CLAIMS ANALYST): Stressed importance of continued A1c control to minimize the superintendent terminal effects of diabetes. Bring accuchecks to office [...] control Assessment & Plan (07/17/2023 10:57 PM CLAIMS ANALYST): Stressed importance of continued A1c control to minimize the superintendent terminal effects of diabetes. Bring accuchecks to office [...] fenofibrate Assessment & Plan (10/12/2022 1:46 PM CLAIMS ANALYST): Encouraged patient to follow low fat/low chol diet like the Mediterranean diet. Increase good fats in the diet. Increase exercise. Monitor labs as needed. Continue fenofibrate and Crestor Assessment & Plan (07/19/2022 11:48 PM CLAIMS ANALYST): Encouraged patient to follow low fat/low chol diet like the Mediterranean diet. Increase good fats in the diet. Increase exercise. Monitor labs as needed. Continue statin Stressed importance of continued A1c control to minimize the mcfp effects of diabetes. Bring accuchecks to office when instructed to do so. Check A1c about every 3-6 months. Take medication as prescribed. Get annual eye exam. Encouraged RYDER/Statin if able to tolerate. Encouraged weight control and encouraged diabetic diet and exercise. Tolerating mounjaro. Continue to titrate up for continue diabetes control and weight loss. Assessment & Plan (07/05/2022 5:11 PM CLAIMS ANALYST): New Diagnosis Diabetes. Discussed with patient at length diabetes, pathogenesis, mcfp sequela, end organ damage, diet/exercise/weight loss, and [...] feet on a regular basis to avoid superintendent terminal problems. Offered referral to rug hooker. Discussed treatment options including metformin versus G [...] Discussed with patient at length diabetes, pathogenesis, superintendent terminal sequela, end organ damage, diet/exercise/weight loss, and [...] feet on a regular basis to avoid mcfp problems. Offered referral to rug hooker. Discussed treatment options She is very interested [...] statin Assessment & Plan (10/03/2021 6:04 PM CLAIMS ANALYST): Encouraged patient to follow fat/low chol diet [...] fenofibrate Assessment & Plan (08/27/2020 8:15 AM CLAIMS ANALYST): Encouraged patient to follow fat/low chol diet [...] HBP Assessment & Plan (10/08/2024 12:29 AM CLAIMS ANALYST): Bp is stable/in acceptable range for any co-morbidities. Encouraged to limit sodium intake and exercise for weight control. Continue Lasix lisinopril and Coreg Assessment & Plan (08/23/2023 9:15 PM CLAIMS ANALYST): Bp is stable/in acceptable range for any co-morbidities. Encouraged to limit sodium intake and exercise for weight control. Continue Lasix lisinopril and Coreg Assessment & Plan (10/12/2022 1:58 PM CLAIMS ANALYST): This is a significant, separately identifiable problem [...] agreement. Assessment & Plan (07/05/2022 5:11 PM CLAIMS ANALYST): Bp is stable/in acceptable range for any [...] workup Assessment & Plan (10/03/2021 6:05 PM CLAIMS ANALYST): Bp is stable/in acceptable range for any co-morbidities. Encouraged to limit sodium intake and exercise for weight control. Continue Coreg lisinopril and Lasix Assessment & Plan (02/23/2021 10:19 AM CDT): Bp is stable/in acceptable range for any co-morbidities. Encouraged to limit sodium intake and exercise for weight control. Continue lasix and lisinopril Assessment & Plan (08/27/2020 8:15 AM CLAIMS ANALYST): Bp is stable/in acceptable range for any [...] 08/19 Assessment & Plan (10/08/2024 12:30 AM CLAIMS ANALYST): Patient appears compensated. Continue medication regimen. Continue per Cardiology Assessment & Plan (08/23/2023 9:15 PM CLAIMS ANALYST): Managed by Dr. Esteban Continue Lasix 20 b.i.d. potassium Coreg 3.125 b.i.d. lisinopril 10 with aspirin Appears compensated today Assessment & Plan (03/06/2023 11:25 PM CDT): Continue per Dr. Esteban Appears compensated today History of cervical cancer 08/19/2012 Resolved Problems Problem Noted Date Diagnosed Date Resolved Date Positive depression screening 08/22/2023 10/08/2024 Assessment & Plan (08/23/2023 9:17 PM CLAIMS ANALYST): Continue per psychiatrist Right upper quadrant abdominal pain 07/17/2023 10/08/2024 Assessment & Plan (07/17/2023 10:52 PM CLAIMS ANALYST): Abdominal pain and symptoms have fully resolved. [...] 024 Assessment & Plan (07/06/2023 1:15 PM CLAIMS ANALYST): Discussed the patient's BMI. The BMI is [...] 03/04/2023 Assessment & Plan (10/12/2022 1:09 PM CLAIMS ANALYST): Discussed the patient's BMI. The BMI is above average. BMI management plan is completed. BMI Follow-up includes: nutrition counseling, exercise counseling and education provided. BMI 50.0-59.9, adult 10/12/2022 023 Assessment & Plan (10/12/2022 1:10 PM CLAIMS ANALYST): Discussed the patient's BMI. The BMI is above average. BMI management plan is completed. BMI Follow-up includes: nutrition counseling, exercise counseling and education provided. Stage 3a chronic kidney disease (CKD) 07/05/2022 08/23/2023 Assessment & Plan (03/06/2023 11:25 PM CDT): Avoid nephrotoxic drugs including NSAIDs. Monitor labs. Assessment & Plan (10/12/2022 1:51 PM CLAIMS ANALYST): Avoid nephrotoxic drugs including NSAIDs. Monitor labs. Assessment & Plan (07/05/2022 5:13 PM CLAIMS ANALYST): Avoid nephrotoxic drugs including NSAIDs. Monitor labs. [...] 10/12/2022 Assessment & Plan (07/19/2022 11:47 PM CLAIMS ANALYST): Discussed the patient's BMI. The BMI is above average. BMI management plan is completed. BMI Follow-up includes: nutrition counseling, exercise counseling and education provided. Majora is helping with weight loss. Will continue to titrate dose as tolerated. Is also helping with diabetes management. Assessment & Plan (07/05/2022 5:13 PM CLAIMS ANALYST): Discussed the patient's BMI. The BMI is [...] of continued A1c control to minimize the mcfp effects of diabetes. Bring accuchecks to office when instructed to do so. Check A1c about every 3-6 months. Take medication as prescribed. Get annual eye exam. Encouraged RYDER/Statin if able to tolerate. Encouraged weight control and encouraged diabetic diet and exercise. Continue Mounjaro as A1c is tightly controlled. Assessment & Plan (10/12/2022 1:51 PM CLAIMS ANALYST): Stressed importance of continued A1c control to minimize the superintendent terminal effects of diabetes. Bring accuchecks to office [...] Mounjaro Assessment & Plan (07/05/2022 5:12 PM CLAIMS ANALYST): New diagnosis diabetes. Avoid nephrotoxic drugs including [...] provided. Assessment & Plan (10/16/2021 8:33 AM CLAIMS ANALYST): Obesity is unchanged. Discussed the patient's BMI. The BMI is above average. BMI management plan is completed. BMI Follow-up includes: nutrition counseling, exercise counseling and education provided. Acute non-recurrent maxillary sinusitis 10/16/2021 12/03/2021 Assessment & Plan (10/16/2021 2:29 PM CLAIMS ANALYST): Start antibiotic, antihistamine (Claritin OR Zyrtec), Mucinex 12hour and Steroid nasal spray (Flonase). Push fluids. Rest. Supportive care. If sxs worsen or don\'t improve, pt is to followup in the office. Annual physical exam 10/03/2021 025 Assessment & Plan (08/23/2023 9:16 PM CLAIMS ANALYST): Encouraged healthy lifestyle, good nutrition and exercise. Encouraged Calcium and Vitamin D and weight bearing exercise for bone health. Reviewed immunizations Reviewed age appropirate screenings. Assessment & Plan (10/12/2022 1:48 PM CLAIMS ANALYST): Encouraged healthy lifestyle, good nutrition and exercise. Encouraged Calcium and Vitamin D and weight bearing exercise for bone health. Reviewed immunizations Reviewed age appropirate screenings. Assessment & Plan (10/03/2021 6:19 PM CLAIMS ANALYST): Encouraged healthy lifestyle, good nutrition and exercise. Encouraged Calcium and Vitamin D and weight bearing exercise for bone health. Reviewed immunizations Reviewed age appropirate screenings. Leg cramps 10/03/2021 10/08/2024 Assessment & Plan (10/03/2021 6:19 PM CLAIMS ANALYST): This is a significant, separately identifiable problem that was evaluated and managed on the same day as the wellness exam Check labs to rule out electrolyte imbalance. Continue CPAP. Abnormal EKG 10/03/2021 10/08/2024 Assessment & Plan (10/03/2021 6:20 PM CLAIMS ANALYST): This is a significant, separately identifiable problem [...] 10/16/2021 Assessment & Plan (09/04/2021 3:35 PM CLAIMS ANALYST): Obesity is unchanged. Discussed the patient's BMI. The BMI is above average. BMI management plan is completed. BMI Follow-up includes: nutrition counseling, exercise counseling and education provided. BMI 50.0-59.9, adult 09/04/2021 022 Assessment & Plan (09/04/2021 3:35 PM CLAIMS ANALYST): Obesity is unchanged. Discussed the patient's BMI. [...] 10/08/2024 Assessment & Plan (08/23/2023 9:16 PM CLAIMS ANALYST): Mammogram order provided Assessment & Plan (03/06/2023 11:26 PM CDT): Mammogram order provided Assessment & Plan (02/24/2021 9:38 AM CDT): Mammogram order provided Fatigue 02/24/2021 10/08/2024 Assessment & Plan (07/17/2023 10:54 PM CLAIMS ANALYST): Probably multifactorial. Check labs and followup to re-evaluate Assessment & Plan (10/12/2022 1:47 PM CLAIMS ANALYST): Probably multifactorial. Check labs and followup to re-evaluate Assessment & Plan (03/08/2022 6:27 PM CDT): Probably multifactorial. Check labs and followup to re-evaluate Assessment & Plan (10/16/2021 2:29 PM CLAIMS ANALYST): Continued fatigue. Awaiting recommendation from Cardiology. Scheduled for November. If she has acute chest pain or acute symptoms she is to immediately go to the ER. She voices understanding and agreement. Assessment & Plan (10/03/2021 6:05 PM CLAIMS ANALYST): Probably multifactorial. Check labs and followup to [...] AM CDT): Check COVID and Strep thru [facility] in [place]. Start antihistamine (Claritin OR Zyrtec), Mucinex 12hour [...] provided. Assessment & Plan (08/27/2020 7:32 AM CLAIMS ANALYST): Obesity is unchanged. Discussed the patient's BMI. The BMI is above average. BMI management plan is completed. BMI Follow-up includes: nutrition counseling, exercise counseling and education provided. Obesity (BMI 30-39.9) 08/27/20202020 Assessment & Plan (08/27/2020 7:32 AM CLAIMS ANALYST): Obesity is unchanged. Discussed the patient's BMI. The BMI is above average. BMI management plan is completed. BMI Follow-up includes: nutrition counseling, exercise counseling and education provided.\\ Encounter for screening mamm ogram for malignant neoplasm of breast 02/21/2020 02/23/2021 Assessment & Plan (08/27/2020 8:16 AM CLAIMS ANALYST): Has order to complete Assessment & Plan (05/25/2020 10:27 AM CDT): Mammogram order provided Assessment & Plan (04/07/2020 8:08 PM CDT): Encouraged healthy lifestyle, good nutrition and exercise. Encouraged Calcium and Vitamin D and weight bearing exercise for bone health. Reviewed immunizations. Reviewed age appropirate screenings. Medicare Wellness Documentation is completed within the chart Cough 08/08/2019 10/08/2024 Assessment & Plan (08/08/2019 12:59 PM CLAIMS ANALYST): Persistent after 10 days of Augmentin. Obtain CXR---It was negative for acute Cardiopulm disease. Start Prednisone 60 mg x 5 days levaquin cheratussin Pt notified of CXR results and plan after results were obtained. Flu-like symptoms 07/27/2019 02/21/2020 Assessment & Plan (08/08/2019 12:59 PM CLAIMS ANALYST): Negative flu again Assessment & Plan (07/27/2019 10:35 PM CLAIMS ANALYST): Negative flu screening. Sxs have been persistent so concern may be progressing from viral to bacterial. Will cover with antibotic/complete the Augmentin course. Start antibiotic, antihistamine, Mucinex and Steroid nasal spray. Push fluids. Rest. Supportive care. If sxs worsen or don\'t improve, pt is to followup in the office. Annual physical exam 05/26/2019 021 Assessment & Plan (08/27/2020 8:15 AM CLAIMS ANALYST): Encouraged healthy lifestyle, good nutrition and exercise. [...] 02/24/2021 Assessment & Plan (08/27/2020 8:15 AM CLAIMS ANALYST): Probably multifactorial. Check labs and followup to [...] diabetes. Assessment & Plan (10/03/2021 6:05 PM CLAIMS ANALYST): Pre-diabetes/hyperglycemia is a precursor to Dm. Stressed [...] diabetes. Assessment & Plan (08/27/2020 8:15 AM CLAIMS ANALYST): Pre-diabetes is a precursor to Dm. Stressed [...] provided. Assessment & Plan (08/08/2019 8:31 AM CLAIMS ANALYST): Obesity is unchanged. Discussed the patient's BMI. [...] provided. Assessment & Plan (08/27/2020 7:42 AM CLAIMS ANALYST): Obesity is unchanged. Discussed the patient's BMI. [...] provided. Assessment & Plan (08/08/2019 8:31 AM CLAIMS ANALYST): Obesity is unchanged. Discussed the patient's BMI. [...] apnea Assessment & Plan (08/23/2023 9:16 PM CLAIMS ANALYST): Patient has not been using her CPAP. Reviewed the long-term sequela of untreated or undertreated sleep apnea not limited to dementia heart rhythm issues like AFib pulmonary hypertension etc.. Patient has all the needed supplies and just needs to reset it up in her new location Assessment & Plan (10/12/2022 1:46 PM CLAIMS ANALYST): Has CPAP at home. Continue to use nightly as instructed. Continue to follow with Dr. Euceda Assessment & Plan (10/03/2021 6:04 PM CLAIMS ANALYST): Continue CPAP. Has all needed supplies. Assessment & Plan (08/27/2020 7:43 AM CLAIMS ANALYST): Has needed supplies. Using nightly Assessment & [...] Department Care Team Description 06/25/2025 11:00 AM CLAIMS ANALYST Office Visit [facility] [address] [address] Madonna Salamanca PA Type 2 diabetes mellitus with hyperlipidemia (HCC) (Primary Dx); BMI 40.0-44.9, adult (HCC); Morbid obesity (HCC); Chronic left shoulder pain; LIMA (obstructive sleep apnea); Hypertension associated with diabetes (HCC); Restless legs; Breast cancer screening by mammogram; Abnormal finding of blood chemistry, unspecified; Other specified diabetes mellitus without complications 06/21/2025 Orders Only [address] [place] [id number] ProviderElisa MD 06/13/[address] [place] [address] Madonna Salamanca PA 04/14/2025 Results Follow-Up [address] [place] [address] Madonna Salamanca PA MMR (IGG) [...] Hypertension Hx Other Medical obesity; Commen ts: [facility] 09/11/2014 - Depression Depression Anxiety disorder Anxiety Hx Other Medical diastolic CHF; Comments: [facility] 09/11/2014 - Hx Other Medical LIMA; Comments: [facility] 09/11/2014 - Hx Other Medical Hx cervical can cer; Comments: [facility] 09/11/2014 - Hx Other Medical hx bacterial me ningitis; Comments: [facility] 09/11/2014 - Allergic rhinitis Cancer (HCC) Heart [...] on file Legal Sex Female 3:10 AM CLAIMS ANALYST Gender Identity Not on file Sexual Orientation Not on file Last Filed Vital Signs Vital Sign Reading Time Taken Comments Blood Pressure 126/72 06/25/2025 10:59 AM CLAIMS ANALYST Pulse 73 06/25/2025 10:59 AM CLAIMS ANALYST Temperature 36.9 C (98.4 F) 06/25/2025 10:59 AM CLAIMS ANALYST Respiratory Rate 16 10/25/2024 10:17 AM CDT Oxygen Saturation 96% 06/25/2025 10:59 AM CLAIMS ANALYST Inhaled Oxygen Concentration - - Weight 107.5 kg (237 lb) 06/25/2025 10:59 AM CLAIMS ANALYST Height 157.5 cm (5' 2) 06/25/2025 10:59 AM CLAIMS ANALYST Body Mass Index 43.35 06/25/2025 10:59 AM CLAIMS ANALYST Plan of Treatment Health Maintenance Due Date [...] W/ IBC Routine 06/30/2025 1 1:31 AM CLAIMS ANALYST Restless legs Other specified diabetes mellitus without complications FERRITIN Routine 06/30/2025 11:31 AM CLAIMS ANALYST Restless legs Abnormal finding of blood chemistry, unspecified VITAMIN B12 Routine 06/30/2025 11:30 AM CLAIMS ANALYST Hypertension associated with diabetes (HCC) HEMOGLOBIN A1C Routine 06/30/2025 11:30 AM CLAIMS ANALYST Hypertension associated with diabetes (HCC) TSH Routine 06/30/2025 11:30 AM CLAIMS ANALYST Hypertension associated with diabetes (HCC) MAGNESIUM Routine 06/30/2025 11:30 AM CLAIMS ANALYST Hypertension associated with diabetes (HCC) COMPREHENSIVE METABOLIC PANEL Routine 06/30/2025 11:30 AM CLAIMS ANALYST Hypertension associated with diabetes (HCC) CBC WITH AUTO DIFFERENTIAL Routine 06/30/2025 11:30 AM CLAIMS ANALYST Hypertension associated with diabetes (HCC) POCT HEMOGLOBIN A1C Routine 06/25/2025 1 0:00 AM CLAIMS ANALYST Type 2 diabetes mellitus with hyperlipidemia (HCC) HM DIABETES EYE EXAM Routine 04/13/2025 3:15 PM CDT MMR (IGG) PANEL (MEASLES, MUMPS, RUBELLA) Routine 04/12/2025 10:04 AM CDT Immunity status testing POCT LIPID PANEL Routine 12/21/2024 7:30 AM CDT Type 2 diabetes mellitus with hyperlipidemia (HCC) HM DEXA SCAN Routine 09/29/2024 9:56 AM CLAIMS ANALYST HM MAMMOGRAPHY Routine 09/29/2024 9:42 AM CLAIMS ANALYST HM ALBUMIN CREATININE RATIO, URINE Routine 08/30/2024 10:09 AM CLAIMS ANALYST STOOL DNA COLOGUARD Routine 03/16/2023 11:00 AM CDT Colon cancer screening from Last 3 Months or Most Recently Relevant to Health Maintenance Results * (ABNORMAL) Iron profile w/ IBC (06/30/2025 11:31 AM CLAIMS ANALYST) Pathologist [facility] [place] Iron 61 45 - 160 mcg/dL [facility] TIBC 472(H) 250 - 450 mcg/dL (calc) [facility] Iron saturation 13(L) 16 - 45 % (calc) [facility] Blood 06/30/2025 11:3 1 AM CLAIMS ANALYST 06/30/2025 11:32 AM CLAIMS ANALYST Narrative [facility] - 07/01/2025 7:53 AM CLAIMS ANALYST FASTING:UNKNOWN FASTING: UNKNOWN us Madonna CLAYTON LAB BLOOD ORDERABLES Final Result [facility] [address] [place] [address] * Ferritin (06/30/2025 11:31 AM CLAIMS ANALYST) [facility] Ferritin 34 16 - 288 ng/mL [facility] Blood 06/30/2025 11:3 1 AM CLAIMS ANALYST 06/30/2025 11:32 AM CLAIMS ANALYST Narrative [facility] - 07/01/2025 7:53 AM CLAIMS ANALYST FASTING:UNKNOWN FASTING: UNKNOWN us Madonna CLAYTON LAB BLOOD ORDERABLES Final Result [facility] [address] [address] * (ABNORMAL) CBC with auto differential (06/30/2025 11:30 AM CLAIMS ANALYST) Pathologist [facility] [place] WBC 6.9 3.8 - 10.8 Thousand/u L [facility] Blood 06/30/2025 11:3 0 AM CLAIMS ANALYST 06/30/2025 11:32 AM CLAIMS ANALYST Narrative [facility] - 07/01/2025 1:59 PM CLAIMS ANALYST FASTING:UNKNOWN FASTING: UNKNOWN Madonna CLAYTON LAB BLOOD ORDERABLES Final Result Performing Organization Address [facility] de Phone Number [facility] [address] [place] [address] * TSH (06/30/2025 11:30 AM CLAIMS ANALYST) TSH 0.85 0.40 - 4.50 mIU/L [facility] Blood 06/30/2025 11:3 0 AM CLAIMS ANALYST 06/30/2025 11:32 AM CLAIMS ANALYST Narrative [facility] - 07/01/2025 1:59 PM CLAIMS ANALYST FASTING:UNKNOWN FASTING: UNKNOWN Madonna CLAY[facility] LAB BLOOD ORDERABLES Final Result Performing Organization Address [facility] de Phone Number [facility] [address] [place] [address] * Magnesium (06/30/2025 11:30 AM CLAIMS ANALYST) Magnesium 2.1 1.5 - 2.5 mg/dL [facility] Blood 06/30/2025 11:3 0 AM CLAIMS ANALYST 06/30/2025 11:32 AM CLAIMS ANALYST Narrative [facility] - 07/01/2025 1:59 PM CLAIMS ANALYST FASTING:UNKNOWN FASTING: UNKNOWN Madonna CLAYTON LAB BLOOD ORDERABLES Final Result Performing Organization Address [facility]/ZIP Co de Phone Number [facility] [address] [facility] [place] [address] * Hemoglobin A1c (06/30/2025 11:30 AM CLAIMS ANALYST) Hgb A1C 5.4 <5.7 % of total Hgb [facility] Comment: For the purpose of screening for the presence of diabetes: <5.7% Consistent with the absence of diabetes 5.7-6.4% Consistent with increased risk for diabetes (prediabetes) > or =6.5% Consistent with diabetes This assay result is consistent with a decreased risk of diabetes. Currently, no consensus exists regarding use of hemoglobin A1c for diagnosis of diabetes in children. According to [place] Diabetes Association (ADA) guidelines, hemoglobin A1c <7.0% represents optimal control in non- diabetic patients. Different metrics may apply to specific patient populations. Standards of Medical Care in Diabetes(ADA). Blood 06/30/2025 11:3 0 AM CLAIMS ANALYST 06/30/2025 11:32 AM CLAIMS ANALYST Narrative [facility] - 07/01/2025 1:59 PM CLAIMS ANALYST FASTING:UNKNOWN FASTING: UNKNOWN Madonna CLAYTON LAB BLOOD ORDERABLES Final Result Performing Organization Address [facility] Co de Phone Number [facility] [address] [place] [address] * Vitamin B12 (06/30/2025 11:30 AM CLAIMS ANALYST) Pathologist [facility] [place] Vitamin B12 434 200 - 1,100 pg/mL [facility] Blood 06/30/2025 11:3 0 AM CLAIMS ANALYST 06/30/2025 11:32 AM CLAIMS ANALYST Narrative [facility] - 07/01/2025 1:59 PM CLAIMS ANALYST FASTING:UNKNOWN FASTING: UNKNOWN Madonna CLAYTON LAB BLOOD ORDERABLES Final Result Performing Organization Address [facility]/ZIP Co de Phone Number [facility] [address] [address] * (ABNORMAL) Comprehensive metabolic panel (06/30/2025 11:30 AM CLAIMS ANALYST) [facility] Glucose 92 65 - 99 mg/dL [facility] Blood 06/30/2025 11:3 0 AM CLAIMS ANALYST 06/30/2025 11:32 AM CLAIMS ANALYST Narrative [facility] - 07/01/2025 1:59 PM CLAIMS ANALYST FASTING:UNKNOWN FASTING: UNKNOWN us Madonna CLAYTON LAB BLOOD ORDERABLES Final Result [facility] [address] [address] [address] * POCT hemoglobin A1c (06/25/2025 10:00 AM CLAIMS ANALYST) Hemoglobin A1C, POC 5.5 4.0 - 5.6 % Capillary blood 06/25/2025 1 0:00 AM CLAIMS ANALYST Madonna CLAYTON POINT OF CARE TEST ORDERAB LES Final Result * DIABETES EYE EXAM (04/13/2025 3:15 PM CDT) SCRIBED DIABETIC DILATED EYE EXAM Normal Impressions Tarah Corbin, MICHAEL - 04/13/2025 3:15 PM CDT No diabetic retinopathy detected Historical Provider HEALTH MAINTENANCE Edited Result - Final * MMR (IGG) PANEL (MEASLES, MUMPS, RUBELLA) (04/12/2025 10:04 AM CDT) Measles (Rubeola) IgG 233.00 AU/mL [facility] Comment: AU/mL Interpretation ----- <13.50 Not consistent with immunity 13.50-16.49 Equivocal >16.49 Consistent with immunity The presence of measles IgG suggests immunization or past or current infection with measles virus. For additional information, please refer to http://education.WAKU WAKU ?/faq/EQY314 (This link is being provided for informational/ [...] AM CDT 04/12/2025 10:05 AM CDT Result [facility] Madonna CLAYTON LAB BLOOD ORDERABLES Final Result Performing Organization Address City/[facility]/ZIP Co de Phone Number [facility] [address] [facility] [place] [place] [address] * POCT lipid panel (12/21/2024 7:30 AM CDT) Cholesterol, POC 114 <200 MG/DL HDL, POC 58 >=40 mg/dL Triglycerides, POC 72 <=149 mg/dL LDL Cholesterol POC 42 <=129 mg/dL Chol/HDL Ratio, POC 2.0 NONE Non-HDL Cholesterol, POC 56 NONE mg/dL Cholesterol Total, POC 114 30 - 199 mg/dL Capillary blood 12/21/2024 7 :30 AM CDT Result [facility] Madonna CLAYTON POINT OF CARE TEST ORDERAB LES Final Result * HM DEXA SCAN (09/29/2024 9:56 AM CLAIMS ANALYST) Result [facility] Historical Provider HEALTH MAINTENANCE Final Result * HM MAMMOGRAPHY (09/29/2024 9:42 AM CLAIMS ANALYST) Impressions Tarah Corbin MA - 09/29/2024 9:42 AM CLAIMS ANALYST BI-RADS TWO Benign Historical Provider HEALTH MAINTENANCE Edited Result - Final * HM ALBUMIN CREATININE RATIO, URINE (08/30/2024 10:09 AM CLAIMS ANALYST) SCRIBED HM ALBUMIN CREATININE RATIO, URINE <0.30 [facility] Historical Provider HEALTH MAINTENANCE Edited Result - Final [facility] * Stool DNA - Cologuard (03/16/2023 11:00 AM CDT) Pathologist [facility] [place] Stool DNA - Cologuard Negative Negative [employer] (CLIA #:[id number]) Comment: NEGATIVE TEST RESULT. A negative Cologuard [...] Francis et al, N Engl J Med 2014;370(14):3594-7982) The normal value (reference range) for this assay is negative. COLOGUARD RE-SCREENING RECOMMENDATION: Periodic colorectal cancer screening is an important part of preventive healthcare for asymptomatic individuals at average risk for colorectal cancer. Following a negative Cologuard result, the [place] Cancer Society and U.S. Multi-Society Task Force screening guidelines recommend a Cologuard re-screening interval of 3 years. References: [place] Cancer Society Guideline for Colorectal Cancer Screening: https://www.cancer.org/cancer/mjdvi-gjndhw-kplxlr/iqcztjcaq-gueytntvx-xrxkvbc/ac s-rec ommendations.html.; Fredis DK, Nahomi CR, Theresa GonzalesK, Colorectal Cancer Screening: Recommendations for Physicians and Patients from the U.S. Multi-Society Task Force on Colorectal Cancer Screening , Am J Gastroenterology 2017; 112:5325-7924. TEST DESCRIPTION: Composite algorithmic analysis of stool [...] (Sylvie Glover al, N Engl J Med 2014;370(14):9026-4368.) Cologuard may produce a false negative or false positive result (no colorectal cancer or precancerous polyp present at colonoscopy follow up). A negative Cologuard test result does not guarantee the absence of CRC or advanced adenoma (pre-cancer). The current Cologuard screening interval is every 3 years. ([place] Cancer Society and U.S. Multi-Society Task Force). Cologuard performance data in a 10,000 patient pivotal study using colonoscopy as the reference method can be accessed at the following location: www.Labels That Talk.[facility]/results. Additional description of the Cologuard test process, warnings and precautions can be found at www.[email or web address].[email or web address]. Stool 03/16/2023 11:0 0 AM CDT 03/19/2023 5:56 PM CDT Madonna CLAYTON LAB BODY FLUIDS AND STOOLS ORDERABLES Final Result [employer] (CLIA #:[id number]) [address] [place] [address] from Last 3 Months or Most Recently Relevant to Health Maintenance Insurance [employer] MEDICARE HMO [employer] MEDICARE O Care Teams Senior Health Physics Technician Relationship Specialty Start Date End Date Madonna Salamanca PA [address] [facility] [address] [place] [phone] PCP - General Internal Medicine 12/23/20
--- OUTSIDE RECORDS SUMMARY | 2025-07-08 16:56 | XMS_ITS | Encounter Summary ---
Author Organization [facility] Facility Care Team Providers Care Research Development Manager Name Role Phone Madonna Salamanca Primary Care Provider [phone]- [phone] Madonna Salamanca Primary Care Provider +1- [phone] Encounter Details Date Type Department Care Team (Latest Contact Info) Description 04/04/2018 Orders Only [facility] CLINCON[facility] ProviderElisa MD [address] [place] [id number] Social History Tobacco Use Types Packs/Day Years Used Date Smoking Tobacco: Never Alcohol Use Standard Drinks/Week Comments Yes 0 (1 standard drink = 0.6 oz pur e alcohol) Comments Unknown Sex and Gender Information Value Date Recorded Sex Assigned at Not on file Legal Sex Female 3:10 AM 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
[2025-07-08] MEDS: MORPHINE SULFATE (*CRX) 4 MG/ML INJ IV PUSH (17:17)
[2025-07-08] MEDS: ONDANSETRON INJ 4 MG/2 ML VIAL IV PUSH (17:18)
--- NOTE | 2025-07-08 17:36 | ED.UPPEXIN ---
HPI - Extremity Injury (Upper) General Chief Complaint: Extremity Injury, Upper Stated Complaint: fell on the ice, right wrist pain Time Seen by Provider: 07/08/25 16:34 Source: patient Mode of arrival: ambulatory Limitations: no limitations History of Present Illness HPI narrative: This is a 65-year-old female that presents emergency department after a fall today. Reports she slipped and fell, caught herself with her right wrist. She does not believe she hit her head. She did not lose consciousness. Reports pain and swelling to the right wrist with decreased range of motion. Denies numbness. Related Data Home Medications ?Medication ?Instructions ?Recorded ?Confirmed ?Last Taken ?Type bupropion HCl 150 mg 24 hr tablet, 150 mg PO QAM 11/26/21 12/22/21 Unknown History extended release (Wellbutrin XL) buspirone 10 mg tablet 10 mg PO TID 11/26/21 12/22/21 Unknown History carvedilol 3.125 mg tablet 3.125 mg PO BID 11/26/21 12/22/21 Unknown History duloxetine 60 mg capsule,delayed 60 mg PO DAILY 11/26/21 12/22/21 Unknown History release fenofibrate micronized 134 mg 134 mg PO DAILY 11/26/21 12/22/21 Unknown History capsule furosemide 40 mg tablet 40 mg PO DAILY 11/26/21 12/22/21 Unknown History lisinopril 10 mg tablet 10 mg PO DAILY 11/26/21 12/22/21 Unknown History modafinil 100 mg tablet 100 mg PO DAILY 11/26/21 12/22/21 Unknown History rosuvastatin 10 mg tablet 10 mg PO DAILY 11/26/21 12/22/21 Unknown History potassium chloride 10 mEq 10 meq PO BID 12/08/21 12/22/21 Unknown History capsule,extended release Allergies Allergy/AdvReac Type Severity Reaction Status Date / Time niacin Allergy Unknown Swelling Verified 06/23/23 17:24 of Lip/Tongue/Throat niacinamide Allergy Unknown Swelling Verified 06/23/23 17:24 of Lip/Tongue/Throat Review of Systems Review of Systems: All systems reviewed & are unremarkable except as noted in HPI and below PMFSH Past Medical History Medical History History of diverticulitis of colon History of meningitis Hyperlipidemia Hypertension Morbid obesity with BMI of 50.0-59.9, adult Surgical History Surgical History History of laparoscopic appendectomy History of laparoscopic cholecystectomy History of laparoscopy Reportedly had laparoscopic surgery for an ectopic and 6 months later had an additional surgery for a salpingo-oophorectomy History of total abdominal hysterectomy total abdominal hysterectomy with salpingo-oophorectomy (of the other unilateral side remaining) 25 years ago Family History Family History Other Depression Family history of arthritis Family history of lung cancer Family history of thyroid disease Social History Social History Smoking status: Former smoker Alcohol intake: never Substance use: never Living arrangements: alone Additional occupation/education comments: 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 She states she was put on disability after having meningitis a few years ago. Gender identity (if verbalized by the patient): Female Spiritual care concerns: No Exam Narrative: GENERAL: Well-appearing, well-nourished, and in no acute distress. HEAD: Normocephalic, atraumatic. EYES: PERRLA and EOMI. ENT: Nares clear, no rhinorrhea or epistaxis. Mucous membranes moist. Oropharynx without tonsillar hypertrophy exudate or other lesions. Bilateral TMs pearly stuart non-bulging NECK: Supple. No adenopathy or masses. CHEST: Clear to auscultation. No respiratory distress. No wheezes rales or rhonchi HEART: Regular rate and rhythm. No murmur heard. Normal peripheral pulses. ABDOMEN: Soft, nontender, nondistended, normal active bowel sounds. EXTREMITIES: Normal range of motion, except decreased active ROM in the right wrist with edema. Normal radial pulse. Normal sensation SKIN: Warm, dry, no rash. NEURO: No focal deficits. Alert and oriented x3. Cranial nerves 2-12 grossly intact PSYCH: Normal mood and affect Course Consultations Consultation #1: Spoke with Dr. Wiley about patient and workup Date: 07/08/25 Vital Signs Vital signs: Vital Signs Temperature 97.6 F 07/08/25 16:19 Pulse Rate 88 07/08/25 16:19 Respiratory Rate 18 07/08/25 16:19 Blood Pressure 146/87 H 07/08/25 16:19 Pulse Oximetry 97 07/08/25 16:19 Oxygen Delivery Room Air 07/08/25 16:19 Temperature 97.6 F 07/08/25 16:19 Pulse Rate 88 07/08/25 16:19 Respiratory Rate 18 07/08/25 16:19 Blood Pressure 146/87 H 07/08/25 16:19 Pulse Oximetry 97 07/08/25 16:19 Oxygen Delivery Room Air 07/08/25 16:19 Procedures Orthopedic Splinting/Casting Injury #1: Splinting/Casting Date: 07/08/25 Splinting/Casting Time: 19:00 Side: right Upper Extremity Injury Location: wrist Upper Extremity Immobilizer: sugar tong splint Splint: customized in ED OCL: sugar tong Pre-Procedure Neuro Vascular Exam: normal Post-Procedure Neuro Vascular Exam: normal Other Orthopedic Equipment: other (sling) MDM - Extremity Injury (Upper) MDM Narrative Medical decision making narrative: Patient presents to the ER for a fall with right wrist injury. She is neurovascularly intact. X-ray showing distal radius fracture. Patient placed in splint. Alignment is improved. Will follow up with orthopedics Differential Diagnosis Differential diagnosis: Likely sprain and strain of wrist, fracture of wrist and fracture of hand Imaging Data Radiologist's impression: ITS Impressions Wrist X-Ray 07/08/25 16:43 Impression: Distal radial fracture Wrist X-Ray 07/08/25 19:12 Impression: Distal radial fracture Critical Care Time Critical Care Time Critical Care Time: No Discharge Plan Discharge Clinical Impression: Distal radial fracture Qualifiers: Encounter type: initial encounter Fracture type: closed Fracture morphology: unspecified fracture morphology Laterality: right Qualified Code(s): S52.501A - Unspecified fracture of the lower end of right radius, initial encounter for closed fracture Patient Disposition: Home Condition: Stable Instructions: Wrist Fracture in Adults (ED) Additional Instructions: Return to the ER if you experience fever, redness and swelling of your extremity, numbness or any other symptoms that are concerning to you Wear splint. No weight on the affected extremity. Ice and elevate extremity. Pain medication as needed Follow up with orthopedics for further care. Patient Language: Serbian Prescriptions: New hydrocodone-acetaminophen 5-325 mg tablet 1 tablet PO Q6H PRN (Reason: pain) Qty: 20 0RF No Action methylprednisolone [Medrol (Yony)] 4 mg tablets,dose pack See Rx Instructions .ROUTE .COMPLEX Qty: 21 0RF Rx Instructions: orally per package directions amoxicillin-pot clavulanate 875-125 mg tablet 1 tablet PO Q12H 10 Days Qty: 20 0RF potassium chloride 10 mEq capsule, extended release 10 meq PO BID furosemide 40 mg tablet 40 mg PO DAILY carvedilol 3.125 mg tablet 3.125 mg PO BID fenofibrate micronized 134 mg capsule 134 mg PO DAILY buspirone 10 mg tablet 10 mg PO TID lisinopril 10 mg tablet 10 mg PO DAILY modafinil 100 mg tablet 100 mg PO DAILY rosuvastatin 10 mg tablet 10 mg PO DAILY bupropion HCl [Wellbutrin XL] 150 mg Tablet Extended Release 24 Hr 150 mg PO QAM duloxetine 60 mg capsule,delayed release(DR/EC) 60 mg PO DAILY lidocaine 5 % adhesive patch,medicated 1 patch topical DAILY Qty: 15 0RF Rx Instructions: leave on most painful area for up to 12 hrs. do not use more than 1 patch in a 24-hour period. Follow-up/Referrals: Cheikh,FORREST Peacock [Primary Care Provider, Unknown] Fadi iWley MD [Physician, Orthopedics]
[2025-07-08] MEDS: HYDROmorphone HCL INJ (*CRX) 1 MG/ML SYR 0.5 MG IV PUSH (18:35)
[2025-07-08] MEDS: LIDOCAINE 1% LOCAL INJ 10 ML VIAL INFILTRATE (18:56)
[2025-07-08 18:59] VITALS: BP 148/83; PULSE 73; RESP 18; O2SAT 95
[2025-07-08] MEDS: HYDROcodone/acetaminophen (*CRX) 5-325 MG TABLET 1 TAB PO (19:57)
[2025-07-08 20:00] VITALS: BP 104/85; PULSE 89; RESP 18; O2SAT 97
== END 2025-07-08 20:00 | disposition home or self-care (01) ==
PROVIDERS: Emergency Provider Physician Assistant; PCP Physician Assistant
DX: S52.501A Unspecified fracture of the lower end of right radius, initial encounter for closed fracture (principal); I10 Essential (primary) hypertension; E78.5 Hyperlipidemia, unspecified; E66.01 Morbid (severe) obesity due to excess calories; Z68.41 Body mass index [BMI] 40.0-44.9, adult; Z87.891 Personal history of nicotine dependence; Z90.49 Acquired absence of other specified parts of digestive tract; Z90.710 Acquired absence of both cervix and uterus; Z90.721 Acquired absence of ovaries, unilateral; Z90.79 Acquired absence of other genital organ(s); W01.0XXA Fall on same level from slipping, tripping and stumbling without subsequent striking against object, initial encounter
CPT/HCPCS: 29125; 73100; 73110; 96374; 96375; 99284; A4565; A9270; J1171; J2003; J2270; J2405